=== PATIENT | male | born 1950 | race Caucasian/White ===

== ENCOUNTER → 2016-06-03 | Outpatient (CLI) | payer OTHER ==
[~2016-06-03] MED LIST: ALL180 PO; ALL300 PO; ALLO300T2 PO; AMT100 PO; AMT50 PO; CHOL100010 PEG; CHOL100010 PO; COMPOUNDING CREAM TOP; CYAN3INJ; CYNI1000 INJ; FLNCV PO; GABA-113 PO; HYDR2TAB48 PO; LISI-461 PO; LOSA50TA6 PO; MELO15TA4 PO; MELO7.5T5 PO; MIRT45TA PO; OMEP40CA41 PO; PEDICHW44 PO; PRLSR20 PO; RMR15 PO; TAMS0.4C38 PO; TRAM-10 PO
== END | disposition home or self-care (01) ==
LOC: C.PATHSPEC 17:36
PROVIDERS: ATTEND Orthopaedic Surgery
DX: M67.442 Ganglion, left hand (principal)

== ENCOUNTER 2016-09-21 12:33 | Emergency (ER) | payer OTHER ==
[~2016-09-21] VITALS: Ht 180.3 cm; Wt 122.6 kg
[~2016-09-21 12:33] MED LIST changes: -ALLO300T2 PO; -AMT100 PO; -CHOL100010 PEG; -CYNI1000 INJ; -GABA-113 PO; -HYDR2TAB48 PO; -LOSA50TA6 PO; -MELO15TA4 PO; -MIRT45TA PO; -OMEP40CA41 PO; -PEDICHW44 PO; -TAMS0.4C38 PO
[2016-09-21 12:35] VITALS: TEMP 36.5; Ht 180.3 cm; Wt 122.6 kg
[2016-09-21] MEDS ORDERED: HYDROmorphone INJ 1 MG/ML SYR IM STA (13:34)
[2016-09-21] MEDS ORDERED: PEDICHW44 PO (14:21)
[2016-09-21] MEDS ORDERED: ALLO300T2 PO (14:21)
[2016-09-21] MEDS ORDERED: LOSA50TA6 PO (14:21)
[2016-09-21] MEDS ORDERED: CYNI1000 INJ (14:21)
[2016-09-21] MEDS ORDERED: MELO15TA4 PO (14:21)
[2016-09-21] MEDS ORDERED: AMT100 PO (14:21)
[2016-09-21] MEDS ORDERED: TAMS0.4C38 PO (14:21)
[2016-09-21] MEDS ORDERED: OMEP40CA41 PO (14:21)
[2016-09-21] MEDS ORDERED: MIRT45TA PO (14:21)
[2016-09-21] MEDS ORDERED: CHOL100010 PEG (14:21)
[2016-09-21] MEDS ORDERED: GABA-113 PO (14:21)
[2016-09-21] MEDS ORDERED: HYDROmorphone INJ 1 MG/ML SYR IV STA (14:59)
[2016-09-21] MEDS ORDERED: HYDROmorphone INJ 0.5 MG/0.5 ML SYR IV STA (16:54)
[2016-09-21] MEDS ORDERED: HYDR2TAB48 PO (17:52)
[2016-09-21 18:09] VITALS: BP 158/87; PULSE 95; O2SAT 91
--- NOTE | 2016-09-21 19:28 | EMERGENCY ROOM VISIT NOTE ---
History First contact with patient: 13:09 Chief Complaint: SHOULDER PAIN Stated Complaint: ACUTE PAIN FROM SHOULDER SURGERY History of Present Illness The patient is a 66 year old male who presents to the Emergency Room with complaints of postoperative right shoulder pain. The patient underwent a right rotator cuff repair [address] Dias at [facility]. Because of a prior history of her response to narcotic analgesics, the patient was discharged with a pain pump and OxyIR 5 mg tablets. The patient reports that when he got home, they noticed that the pain pump was leaking. They called the orthopedic on-call service who suggested that he pull the pain pump catheter, continue with the OxyIR 5 mg up to 15 mg every 4-6 hours. The patient reports that he has continued to do so without any relief of the pain. When he tried to call the office this morning, they reported that they could not phone in a prescription for a narcotic, a suggested that he either go to his family doctor or come to the emergency department for further reevaluation. The patient called his family doctor but they could not get him in today, therefore he presents for further pain management. As indicated previously, the patient reports that he does not get good pain relief with narcotic analgesics. He cannot tolerate OxyContin. He believes that he did have oral Dilaudid after undergoing a knee replacement with [facility] in 2009. He reports that Darvocet provides excellent pain relief, but that is no longer available. Regarding the patient's shoulder, he denies any drainage from the surgical ports , and has not noticed any increasing redness, swelling or warmth to palpation. He denies any fevers or chills, chest pain or shortness of breath. He currently rates his discomfort a 7 out of 10. Review of Systems 10 system review was performed and was negative except for pertinent positives and negatives as indicated in history of present illness Past Medical/Surgical History Medical Problems: (1) Allergic Rhinitis Nos (2) Calculus Of Kidney (3) Carpal Tunnel Syndrome (4) Depressive Disorder Nec (5) Diverticulitis Colon (W/O Ment Of Hemorrhage) (6) Gouty Arthropathy, Unspecified (7) Hyperlipidemia Nec/Nos (8) Hypertension Nos (9) Hypertrophy (Benign) Of Prostate W/O Urinary Obst & Oth Luts (10) Obesity, Nos (11) Osteoarthrosis-Mult Site (12) Vitamin D Deficiency, Unspecified Surgical Problems: (1) History of arthroscopic knee surgery (2) History of carpal tunnel surgery (3) History of knee replacement procedure of left knee (4) History of neck surgery Family History Unremarkable Social History Smoking Status: Former Smoker Alcohol Use: none Marital Status: Occupation Status: employed Current/Historical Medications Scheduled Allopurinol (Zyloprim), 300 MG PO DAILY Amitriptyline HCl (Amitriptyline HCl), 100 MG PO DAILY Cholecalciferol (Vitamin D), 4,000 UNITS PEG DAILY Cyanocobalamin (Cyanocobalamin), 1 DOSE INJ MONTHLY Gabapentin (Neurontin), 300 MG PO DAILY Losartan Potassium (Cozaar), 50 MG PO DAILY Meloxicam (Mobic), 15 MG PO DAILY Mirtazapine (Remeron), 22.5 MG PO HS Omeprazole (Prilosec), 40 MG PO DAILY Pediatric Multiple Vitamins W/ (Flintstones Plus Iron), 2 TABS PO DAILY Tamsulosin Hcl (Flomax), 0.4 MG PO DAILY Scheduled PRN Hydromorphone Hcl (Dilaudid), 1-2 TAB PO q4-6h PRN for Pain Allergies Coded Allergies: Imipenem (Verified Allergy, Severe, HIVES, CANT BREATHE (TOLERATES CEFAZOLIN), 12/17/11) Latex (Verified Allergy, Severe, TROUBLE BREATHING, 12/17/11) Sulfa Drugs (Verified Allergy, Severe, CAN'T BREATHE, 12/17/11) CAN'T BREATHE Iodine (Verified Allergy, Unknown, 12/17/11) Moxifloxacin (Unverified Allergy, Unknown, resp distress, hives, 12/17/11) Shrimp (Verified Allergy, Unknown, CAN'T BREATHE, 12/17/11) Physical Exam Vital Signs Date Time Temp Pulse Resp B/P (MAP) Pulse Ox O2 Delivery O2 Flow Rate FiO2 09/21/16 18:09 95 158/87 91 09/21/16 18:08 20 93 09/21/16 18:03 166/116 09/21/16 17:53 91 91 09/21/16 17:38 90 94 09/21/16 17:36 90 Room Air 09/21/16 17:23 88 23 96 09/21/16 17:13 143/114 09/21/16 17:08 96 12 09/21/16 16:53 94 18 09/21/16 16:38 69 17 85 09/21/16 16:23 90 24 09/21/16 16:08 95 28 93 09/21/16 15:53 88 17 09/21/16 15:39 88 93 09/21/16 15:38 93 17 91 09/21/16 15:33 90 09/21/16 15:20 90 09/21/16 14:00 156/84 09/21/16 14:00 87 16 156/84 97 Room Air 09/21/16 12:35 36.5 95 18 147/82 97 Room Air Physical Exam CONSTITUTIONAL: Healthy and well nourished. Alert and oriented X 3 with positive affect. She appears in mild to moderate discomfort. HEENT: Normocephalic, atraumatic. Pupils equal, round and reactive. NECK: Full active range of motion without discomfort. RESPIRATORY: Clear to auscultation bilaterally with no wheezing, crackles, rhonchi or stridor. CARDIOVASCULAR: Regular rate and rhythm with no murmurs, rubs or gallops. MUSCULOSKELETAL: Examination of the right shoulder shows surgical ports without any erythema, edema, induration or purulent drainage. There is no significant increase in warmth to palpation of the shoulder. Range of motion was deferred. Distal pulses are intact. INTEGUMENTARY: No rash or other significant dermatologic conditions noted. NEUROLOGIC: No focal neurologic deficits noted. Right deltoid sensation is intact. Right hand and fingers are also sensory intact. Median, radial and ulnar motor and sensory are intact. Medical Decision & Procedures Medications Administered Medications (Trade) Dose Ordered Sig/Sandra Route Start Time Stop Time Status Last Admin Dose Admin Hydromorphone HCl (Dilaudid Inj) 1 mg ONE STAT IM 09/21/16 13:34 09/21/16 13:39 DC 09/21/16 13:56 1 MG Hydromorphone HCl (Dilaudid Inj) 1 mg NOW STAT IV 09/21/16 14:59 09/21/16 15:08 DC 09/21/16 15:23 1 MG Hydromorphone HCl (Dilaudid Inj) 0.5 mg NOW STAT IV 09/21/16 16:54 09/21/16 16:55 DC 09/21/16 16:54 0.5 MG ED Course Patient history and physical exam were performed. Nurse's notes were reviewed. Vital signs were reviewed, showing a blood pressure of 147/82. The patient is afebrile. The patient was administered Dilaudid 1 mg IM. The presented the bottle of OxyIR 5 mg, dispensed #80 that was prescribed for his surgery. The patient reports that he has been taking 15 mg every 4 hours without any significant relief of his pain. As indicated in history of present illness, the called the orthopedic surgeon's office and was instructed to come here as they could not call in a prescription for other narcotic analgesics. The patient indicates that he has tolerated Dilaudid before in the past after his knee replacement in 2009. I did review hospital records but was unable to confirm the actual dosing of the Dilaudid. At this point, I tried to call the [facility] pharmacy in [place] where he got the prescription filled. They reported that they only have records for 2 years, but gave me the number for the corporate office ( ). This office stated that they could pull his medication history, however the request would need to be a written quest on company letterhead with a fax number, and that this information would have to be collected by the pharmacist and faxed to our location. She reports that this would take several hours to do. I had thought about calling [facility], but suspect that this would also be a long drawn out process as well. At this point, I then contacted the [facility], speaking with Paola ([phone], extension [phone]) who spent approximate 10 minutes on the phone with me well looking through the patient's records. She was unable to find any history of prior Dilaudid prescriptions from surgeries within the [facility] system. At this point, I then spoke with CRISS Avina who is Dr. Dias's TURNER OFF. She suggested prescribing OxyContin, however I explained that the patient has an adverse reaction to OxyContin. At this point, she offered to have the patient drive to their office tomorrow for further pain management. She also stated that if I felt comfortable prescribing Dilaudid to the patient, I could do that as well until the patient can return to their facility for further evaluation. She reports that Dr. Dias has office hours on , which is 3 days from now. Otherwise they do not have any other options at this time for the patient. All of this information was discussed with the patient and . The patient reported that the IM Dilaudid did not provide any relief of his pain. At this point, I suggested intravenous access for further medication titration. IV access was established. The patient was then administered an additional Dilaudid 1 mg IVP, which helped reduced his pain to a 4 out of 10, however this was only a brief respite before the pain re-escalated to a 9 out of 10. He was provided a third dose of IV Dilaudid 0.5 mg which did reduced his pain to a 5 out of 10. The patient reported that he did feel comfortable enough to try to go home. The patient was trial ambulated without any dizziness, nausea or other concerning symptoms. The patient will be provided a prescription for Dilaudid 2 mg, one to 2 every 4- 6 hours for his basic pain relief. He was dispensed 36 tablets with no refills. He may then use his OxyIR 5 mg as needed for additional breakthrough pain. If this does not control the patient's pain, it was suggested that he call the orthopedic service at [facility] who will likely ask him to return to their emergency department for further evaluation. Both the patient and voiced understanding of all discharge instructions, and was happy with plan of care. I did receive a phone call from the patient's pharmacy, reporting that his insurance would only allow dispensing a total of #27 Dilaudid 2 mg tablets in a 72 hour period of time. They were instructed to dispense #27 tablets, and instructed patient to use the OxyIR 5 mg more frequently as needed for pain relief. It is noted that I spent total of 63 minutes in conversation with the patient and [facility] via telephone conversation. Medical Decision I suspect that this is true postoperative joint pain. His clinical exam is not suggestive of infection. He is neurologically intact. I also do not suspect the pain thrombosis given the severity of his symptoms. Impression Primary Impression: Acute postoperative pain of right shoulder Departure Information Dispostion Home / Self-Care Prescriptions Hydromorphone Hcl (DILAUDID) 2 Mg Tab 1-2 TAB PO q4-6h Y for Pain, #36 TAB INITIAL TREATMENT Prov: Broderick Yun PA 09/21/16 Forms HOME CARE DOCUMENTATION FORM, IMPORTANT VISIT INFORMATION Patient Instructions [facility] Additional Instructions Intermittently apply ice to shoulder. Continue with all instructions per your orthopedic surgeon. Continue with Tylenol 1000 mg every 6-8 hours. Take Dilaudid as prescribed for your main pain relief. Continue with OxyIR 5-10 mg every 4 hours if needed for additional pain relief. Call Dr. Dias's office for a follow-up appointment on . If pain is still uncontrollable, suggest going to the [facility] emergency department for further management by the orthopedic service.
== END 2016-09-21 18:11 | disposition home or self-care (01) ==
LOC: C.EDB 12:35
DX: G89.18 Other acute postprocedural pain (principal); M25.511 Pain in right shoulder; Z87.442 Personal history of urinary calculi; F32.9 Major depressive disorder, single episode, unspecified; E78.5 Hyperlipidemia, unspecified; I10 Essential (primary) hypertension; E66.9 Obesity, unspecified; M19.90 Unspecified osteoarthritis, unspecified site; E55.9 Vitamin D deficiency, unspecified; Z87.891 Personal history of nicotine dependence; Z79.899 Other long term (current) drug therapy

== ENCOUNTER → 2016-12-02 | Outpatient (CLI) | payer OTHER ==
[~2016-12-02] MED LIST changes: -ALL180 PO; -ALL300 PO; +ALLO300T2 PO; +AMT100 PO; -AMT50 PO; +CHOL100010 PEG; -CHOL100010 PO; -COMPOUNDING CREAM TOP; -CYAN3INJ; +CYNI1000 INJ; -FLNCV PO; +GABA-113 PO; -LISI-461 PO; +LOSA50TA6 PO; +MELO15TA4 PO; -MELO7.5T5 PO; +MIRT45TA PO; +OMEP40CA41 PO; +PEDICHW44 PO; -PRLSR20 PO; -RMR15 PO; +TAMS0.4C38 PO; -TRAM-10 PO
[2016-12-02 14:42] LABS: BASO % 0.3 %; BASO ABS # 0.02 K/uL (0-0.2); COMPLETE YES; EOS % 2.7 %; HEMATOCRIT 39.5 % (42-52); IG% 0.6 %; LYMPH % 32.6 %; LYMPH ABS # 2.14 K/uL (1.2-3.4); MEAN CELL VOLUME 90.8 fL (80-100); MEAN CORPUSCULAR HEMOGLOBIN 31.5 pg (25-34); MEAN CORPUSCULAR HGB CONC 34.7 g/dl (32-36); MEAN PLATELET VOLUME 9.6 fL (7.4-10.4); MONO % 7.9 %; NEUT % 55.9 %; PLATELET COUNT 246 K/uL (130-400); RED BLOOD COUNT 4.35 M/uL (4.7-6.1); WHITE BLOOD COUNT 6.56 K/uL (4.8-10.8)
[2016-12-02 15:30] LABS: AST/SGOT 20 U/L (15-37); CREATININE 0.92 mg/dl (0.60-1.40)
[2016-12-02 15:33] LABS: ALKALINE PHOSPHATASE 83 U/L (45-117); ALT/SGPT 36 U/L (12-78)
[2016-12-03 07:18] LABS: ESTIMATED AVERAGE GLUCOSE 134 mg/dl; HA1C FLAG Normal (Normal)
== END | disposition home or self-care (01) ==
LOC: C.LAB1850 13:27
PROVIDERS: ATTEND Internal Medicine Rheumatology
DX: M25.549 Pain in joints of unspecified hand (principal); M1A.9XX0 Chronic gout, unspecified, without tophus (tophi); Z79.899 Other long term (current) drug therapy; R73.9 Hyperglycemia, unspecified

== ENCOUNTER → 2017-03-02 | Outpatient (CLI) | payer OTHER ==
--- NOTE | 2017-03-08 10:41 | CODING QUERY MEDICAL NECESSITY ---
SUPPORTING DIAGNOSIS NEEDED Dr. Blas, A supporting diagnosis is required for the test/procedure performed on this patient in order for us to be reimbursed by the patient's insurance. Please provide a supporting diagnosis for the following test/procedure listed below next to the test name along with your signature. *If there is no additional diagnosis for this patient that would support the following test/procedure please document that below next to the test/procedure. Test(s)/Procedure(s) that require a supporting diagnosis: * [id number] PSA DIAGNOSIS: DATE OF SERVICE: 03/02/17 Provider Signature: Date: Thank you Rufino Velasco [facility] Information Management Once completed, please kindly fax back to [phone] For questions please call [phone]
== END | disposition home or self-care (01) ==
LOC: C.LAB 16:18
PROVIDERS: ATTEND Urology
DX: N20.0 Calculus of kidney (principal)

== ENCOUNTER → 2017-03-09 | Outpatient (CLI) | payer OTHER ==
[2017-03-09 13:45] LABS: ALT/SGPT 37 U/L (12-78); AST/SGOT 18 U/L (15-37); BLOOD UREA NITROGEN 32 mg/dl (7-18); BUN/CREATININE RATIO 29.8 (10-20); CALCIUM 8.9 mg/dl (8.5-10.1); CARBON DIOXIDE 25 mmol/L (21-32); CHLORIDE 104 mmol/L (98-107); CREATININE 1.07 mg/dl (0.60-1.40); ESTIMATED AVERAGE GLUCOSE 128 mg/dl; GLUCOSE 109 mg/dl (70-99); HA1C FLAG Normal (Normal); POTASSIUM 4.1 mmol/L (3.5-5.1); SODIUM 135 mmol/L (136-145)
[2017-03-09 13:47] LABS: ALB/GLOB RATIO 1.2 (0.9-2); ALKALINE PHOSPHATASE 75 U/L (45-117); CHOLESTEROL 151 mg/dl (0-200); CHOLESTEROL/HDL RATIO 2.4; HDL CHOLESTEROL 63 mg/dl; LDL CHOLESTEROL CALCULATED 74 mg/dl; TRIGLYCERIDES 70 mg/dl (0-150); VERY LOW DENSITY LIPOPROT CALC 14 mg/dl
== END | disposition home or self-care (01) ==
LOC: C.LAB1850 11:59
PROVIDERS: ATTEND Family Medicine
DX: I10 Essential (primary) hypertension (principal); R73.9 Hyperglycemia, unspecified; K90.9 Intestinal malabsorption, unspecified; E55.9 Vitamin D deficiency, unspecified

== ENCOUNTER → 2017-06-29 | Outpatient (CLI) | payer OTHER ==
[~2017-06-29] MED LIST changes: +MELO-84 PO; -MELO15TA4 PO
== END | disposition home or self-care (01) ==
LOC: C.LABBC 09:18
PROVIDERS: ATTEND Family Medicine
DX: R73.03 Prediabetes (principal); R73.9 Hyperglycemia, unspecified

== ENCOUNTER → 2017-08-15 | Outpatient (CLI) | payer OTHER | END | disposition home or self-care (01) | LOC: C.CPL 08:30 | PROVIDERS: ATTEND Orthopaedic Surgery Sports Medicine | DX: M79.641 Pain in right hand (principal) ==

== ENCOUNTER → 2017-08-18 | Outpatient (CLI) | payer OTHER ==
--- NOTE | 2017-08-18 12:36 | DIAGNOSTIC IMAGING REPORT ---
MRI LUMBAR SPINE W/O CONTRAST CLINICAL HISTORY: M54.16 low back pain with lumbar radiculopathy. TECHNIQUE: Sagittal and axial T1, T2 and STIR images were obtained. COMPARISON STUDY: No previous studies for comparison. OBSERVATIONS: There are no areas of marrow replacement suspicious for neoplasm. Degenerative endplate signal changes are present the L3-4 level. L1-2: There is a minimal circumferential disc bulge. There is no significant spinal or foraminal stenosis L2-3: There is a minimal circumferential disc bulge. There is no significant spinal or foraminal stenosis L3-4: There is a mild circumferential disc bulge. There is mild triangular spinal canal narrowing. There is no significant foraminal stenosis. L4-5: There is a broad-based central disc protrusion with moderate spinal stenosis. There is facet joint arthropathy. There is mild bilateral foraminal narrowing. L5-S1: There is a small broad-based disc protrusion. There is mild spinal stenosis. There is mild bilateral foraminal narrowing. The conus medullaris and cauda equina appear normal. IMPRESSION: Multilevel spondylitic changes. Mild spinal stenosis at the L3-4, and L5-S1 levels. Moderate spinal stenosis at the L4-5 level.. Electronically signed by: Thuan Casas M.D. 08/18/2017 12:35 PM Dictated Date/Time: 08/18/2017 12:29 PM
== END | disposition home or self-care (01) ==
LOC: C.MRI 11:16
PROVIDERS: ATTEND Internal Medicine Geriatric Medicine
DX: M48.07 Spinal stenosis, lumbosacral region (principal); M54.16 Radiculopathy, lumbar region

== ENCOUNTER 2019-03-17 07:33 | Inpatient (IN) ==
--- NOTE | 2019-03-01 10:20 | PAT Medication Instructions ---
Medication Instructions Date of Service March 01, 2019 Home Medications Medication Instructions Recorded epinephrine 0.3 mg/0.3 mL 0.3 mg IM .COMPLEX PRN #2 ea 11/11/18 injection, auto-injector gabapentin 300 mg capsule 300 mg PO HS #90 cap 11/11/18 cyanocobalamin (vitamin B-12) 1,000 mcg IM MONTHLY #10 ml 11/17/18 1,000 mcg/mL injection solution cholecalciferol (vitamin D3) 50 mcg (2,000 unit) capsule 2,000 units PO HS epinephrine 0.3 mg/0.3 mL injection, auto-injector 0.3 mg IM .COMPLEX PRN gabapentin 300 mg capsule 300 mg PO HS cyanocobalamin (vitamin B-12) 1,000 mcg/mL injection solution 1,000 mcg IM MONTHLY allopurinol 300 mg PO HS amitriptyline 150 mg PO HS atorvastatin 10 mg PO HS bupropion HCl [Wellbutrin SR] 100 mg PO BID cyclobenzaprine 5 mg PO UD fluticasone propionate [Flonase Allergy Relief] 1 - 2 spray INTRANASAL DAILY PRN ibuprofen 400 mg PO Q6H PRN meloxicam 15 mg PO HS metformin 1,000 mg PO QAM multivitamin 2 tab PO BID omeprazole 40 mg PO HS tamsulosin 0.4 mg PO HS Continue as directed epinephrine 0.3 mg/0.3 mL injection, auto-injector 0.3 mg IM .COMPLEX PRN (if needed) ASK your surgeon for instructions ibuprofen 400 mg PO Q6H PRN meloxicam 15 mg PO HS DO NOT take the morning of surgery cyanocobalamin (vitamin B-12) 1,000 mcg/mL injection solution 1,000 mcg IM MONTHLY cyclobenzaprine 5 mg PO UD metformin 1,000 mg PO QAM multivitamin 2 tab PO BID Take morning of surgery With a small sip of water, OTHERWISE NOTHING TO EAT OR DRINK AFTER MIDNIGHT: bupropion HCl [Wellbutrin SR] 100 mg PO BID fluticasone propionate [Flonase Allergy Relief] 1 - 2 spray INTRANASAL DAILY PRN (if needed) Take evening before surgery cholecalciferol (vitamin D3) 50 mcg (2,000 unit) capsule 2,000 units PO HS gabapentin 300 mg capsule 300 mg PO HS allopurinol 300 mg PO HS amitriptyline 150 mg PO HS atorvastatin 10 mg PO HS bupropion HCl [Wellbutrin SR] 100 mg PO BID cyclobenzaprine 5 mg PO UD (if needed) fluticasone propionate [Flonase Allergy Relief] 1 - 2 spray INTRANASAL DAILY PRN (if needed) multivitamin 2 tab PO BID omeprazole 40 mg PO HS tamsulosin 0.4 mg PO HS Other Notes If you have any questions please call us at [phone] or [phone] or [phone] or [phone]
--- NOTE | 2019-03-01 13:33 | Anesthesiology Consultation ---
Date of Service March 01, 2019 Assessment & Plan (1) Encounter for pre-operative examination: Elevated coags noted on pre op testing. Note sent to PCP. PCP Clearance 03/09/19 = "After careful review of his past medical records, stability of his medical conditions, and careful review of risks and benefits with patient following surgical intervention, patient is at acceptable risk and cleared for surgical intervention pending CBC, INR, liver enzymes on 03/13/2019." Repeat coags, CBC, and LFTs all WNL. Chart Review Chart Review: Acceptable Risk for Surgery and Patient seen in Pre Admission Testing Teaching & Discussion Instructed NPO after midnight before surgery, except medications with 15 cc of water. Medication instructions provided according to the PAT guidelines. History Surgery Operation Date: 03/17/19 09:55 Proposed Procedures p L4-S1 Decompression and Fusion with Spinal Cord Monitoring - Farooq Burgos, DO Height/Weight Height: 5 ft 11.5 in Weight: 119.7 kg Allergies Allergy/AdvReac Type Severity Reaction Status Date / Time imipenem Allergy Severe HIVES, Verified 03/16/19 10:31 CANT BREATHE (TOLERATES CEFAZOLIN) latex Allergy Severe TROUBLE Verified 03/16/19 10:31 BREATHING Sulfa (Sulfonamide Allergy Severe CAN'T Verified 03/16/19 10:31 Antibiotics) BREATHE iodine Allergy Unknown SOB WITH Verified 03/16/19 10:31 CONTRASRT DYES--TOPICAL OK moxifloxacin Allergy Unknown resp Verified 03/16/19 10:31 distress, hives shrimp Allergy Unknown CAN'T Verified 03/16/19 10:31 BREATHE Medications Home Medications Medication Instructions Recorded Confirmed Last Taken cholecalciferol (vitamin D3) 50 2,000 units PO HS cap 11/11/18 03/16/19 Unknown mcg (2,000 unit) capsule epinephrine 0.3 mg/0.3 mL 0.3 mg IM .COMPLEX PRN #2 ea 11/11/18 03/16/19 Unknown injection, auto-injector gabapentin 300 mg capsule 300 mg PO HS #90 cap 11/11/18 03/16/19 Unknown needle (disp) 25 gauge 25 gauge x #100 ea 11/11/18 03/16/19 Unknown 5/8" cyanocobalamin (vitamin B-12) 1,000 mcg IM MONTHLY #10 ml 11/17/18 03/16/19 Unknown 1,000 mcg/mL injection solution allopurinol 300 mg PO HS 02/22/19 03/16/19 Unknown amitriptyline 150 mg PO HS 02/22/19 03/16/19 Unknown atorvastatin 10 mg PO HS 02/22/19 03/16/19 Unknown bupropion HCl [Wellbutrin SR] 100 mg PO BID 02/22/19 03/16/19 Unknown fluticasone propionate [Flonase 1 - 2 spray INTRANASAL DAILY PRN 02/22/19 03/16/19 Unknown Allergy Relief] ibuprofen 400 mg PO Q6H PRN 02/22/19 03/16/19 Unknown meloxicam 15 mg PO HS 02/22/19 03/16/19 Unknown metformin 1,000 mg PO QAM 02/22/19 03/16/19 Unknown multivitamin 2 tab PO BID 02/22/19 03/16/19 Unknown omeprazole 40 mg PO HS 02/22/19 03/16/19 Unknown tamsulosin 0.4 mg capsule 0.4 mg PO HS #90 cap 03/08/19 03/16/19 Unknown cyclobenzaprine 5 mg tablet 5 mg PO HS PRN tab 03/16/19 03/16/19 Unknown Past Medical History Medical History Allergic rhinitis, cause unspecified BPH loc w urin obs/LUTS Calculus of kidney (Chronic) Carpal tunnel syndrome (Chronic) Depressive disorder, not elsewhere classified (Chronic) Diverticulitis, colon (Resolved) s/p hemicolectomy 1984 Gout Gouty arthropathy, unspecified (Chronic) Hyperlipidemia (Chronic) Hypertension (Chronic) SITUATIONAL; NO MEDS--PCP has initiated in past but d/c'd due to hypotension. 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 Vitamin D deficiency (Chronic) Exercise / Class Metabolic Activity II 4-5 Yardwork/Stairs/Walk up hill (Denies CP or SOB with 1 FOS) Past Family History Family History Father Family history of diabetes mellitus Past Surgical History Surgical History History of appendectomy History of arthroplasty of left knee History of cataract surgery R/L History of colonoscopy X MULTPLE History of fusion of cervical spine History of gastric bypass 1994 History of partial colectomy History of shoulder surgery R/L History of total right hip arthroplasty Nausea and vomiting after administration of anesthetic agent Past Anesthesia History No Hx of Anesthesia Complications (other than PONV) and No Family Hx of Anesthesia Complications Pt feels like he has had worsening memory issues with every subsequent surgery he has, has felt this decline over the past 10-15 years. History of PONV No Hx of Motion Sickness and History of PONV Social History Smoking Status: Former smoker Do You Dip or Chew Tobacco: No Smoking End Date: QUIT 1984 Hx Alcohol Use: No Hx Substance Use: No Review of Systems Pt denies any recent chest pain, shortness of breath, palpitations, cough, fever or URI. Physical Exam Vital Signs BP: 162/94 (pt states he has white coat syndrome, PCP has initiated antihypertensives in the past but tapered down and eventually stopped med due to hypotension. Pt states usually 120's/70's on home readings) P: 88bpm SPO2: 93% RA T: 98.8 F R: 16 Constitutional + obese ENMT Mouth: + dentures (partial upper, 7 teeth); no chipped teeth and no loose teeth Thyromental Distance: > or= 3.5 Finger Breadths (3.5) Mallampati Class: II Neck normal visual inspection; neck extension not limited Respiratory normal respiratory effort Auscultation: lungs clear to auscultation bilaterally Cardiovascular Rate/Rhythm: regular rate and regular rhythm Heart Sounds: no murmur Vessels: no carotid bruit Extremities: no edema Testing Laboratory Results 03/01/19 13:41 03/01/19 13:41 PT 12.7 Seconds (9.0-12.0) H 03/01/19 13:41 INR 1.3 (0.9-1.1) H 03/01/19 13:41 APTT 30.3 Seconds (21.0-31.0) 03/01/19 13:41 Urine Color Yellow 03/01/19 Unknown Urine Appearance Clear (Clear) 03/01/19 Unknown Urine pH 6.0 (4.5-7.5) 03/01/19 Unknown Ur Specific [place] 1.017 (1.000-1.030) 03/01/19 Unknown Urine Protein 2+ (Negative) H 03/01/19 Unknown Urine Glucose (UA) Negative (Negative) 03/01/19 Unknown Urine Ketones Negative (Negative) 03/01/19 Unknown Urine Nitrite Negative (Negative) 03/01/19 Unknown Ur Leukocyte Esterase Negative (Negative) 03/01/19 Unknown Urine WBC (Auto) 1-5 /hpf (0-5) 03/01/19 Unknown Urine RBC (Auto) 0-4 /hpf (0-4) 03/01/19 Unknown U Hyaline Cast (Auto) 0 /lpf (0-5) 03/01/19 Unknown U Epithel Cells (Auto) 0-5 /lpf (0-5) 03/01/19 Unknown Urine Bacteria (Auto) Negative (Negative) 03/01/19 Unknown Blood Type A Positive 03/01/19 13:41 Antibody Screen NEGATIVE 03/01/19 13:41 Updated Labs 03/15/19 WBC: 6.48 H/H: 14.7/43.9 PLATELETS: 240 PT: 9.6 PTT: 30.3 INR: 0.9 LFTs: all WNL Electrocardiogram Date: 03/01/19 Findings: + NSR @ (88bpm) Chest X-Ray Date: 03/01/19 Findings: + NAD
--- NOTE | 2019-03-01 14:02 | XRay Report ---
TWO VIEW CHEST CLINICAL HISTORY: Preoperative examination. FINDINGS: PA and lateral chest radiographs are compared to study dated 10/30/2010. The cardiomediastin al silhouette is unremarkable. There is mild bibasilar atelectasis. The lungs and pleural spaces are otherwise clear. There is no pneumothorax. The bony thorax appears intact. Degenerative change is not ed in the thoracic spine. IMPRESSION: No active disease in the chest. Electronically signed by: Navi Vazquez M.D. 03/01/2019 2:01 PM
[2019-03-01 14:24] LABS: Basophils # (auto) 0.02 K/uL (0-0.2); Basophils % (auto) 0.3 %; Eosinophils % (auto) 2.7 %; Hematocrit (blood only) 40.1 % (42-52); Hemoglobin 13.5 g/dL (14.0-18.0); Immature Granulocytes # (auto) 0.03 K/uL (0.00-0.02); Immature Granulocytes % (auto) 0.4 %; Lymphocytes # (auto) 1.92 K/uL (1.2-3.4); Lymphocytes % (auto) 26.1 %; Mean Corpuscular Hemoglobin 30.9 pg (25-34); Mean Corpuscular Hgb Conc 33.7 g/dL (32-36); Mean Corpuscular Volume 91.8 fL (80-100); Mean Platelet Volume 9.8 fL (7.4-10.4); Monocytes # (auto) 0.54 K/uL (0.11-0.59); Monocytes % (auto) 7.3 %; Neutrophils # (auto) 4.65 K/uL (1.4-6.5); Neutrophils % (auto) 63.2 %; Platelet Count 240 K/uL (130-400); RDW Coefficient of Variation 13.2 % (11.5-14.5); RDW Standard Deviation 43.9 fL (36.4-46.3); Red Blood Count 4.37 M/uL (4.7-6.1); White Blood Count 7.36 K/uL (4.8-10.8)
[2019-03-01 14:34] LABS: BUN Creatinine Ratio 19.9 (10-20); Calcium 8.7 mg/dl (8.5-10.1); Creatinine Clr Calc Pharmacy 103.6 ml/min; Est GFR (African American) 98.8; Est GFR (Non-African American) 85.2; Potassium 3.8 mmol/L (3.5-5.1)
[2019-03-01 14:40] LABS: Appearance Urine Clear (Clear); Bacteria Urine Automated Negative (Negative); Bilirubin Urine Negative (Negative); Blood Urine Negative (Negative); Cast Urine Automated 0 /lpf (0-5); Color Urine Yellow; Epithelial Cell Urine Auto 0-5 /lpf (0-5); Glucose Urine UA Negative (Negative); Ketones Urine Negative (Negative); Leukocyte Esterase Urine Negative (Negative); Nitrite Urine Negative (Negative); Protein Urine 2+ (Negative); RBC Urine Automated 0-4 /hpf (0-4); Specific Gravity Urine 1.017 (1.000-1.030); Urobilinogen Urine Negative (Negative)
[2019-03-01 14:41] LABS: INR 1.3 (0.9-1.1); Partial Thromboplastin Ratio 1.1; Partial Thromboplastin Time 30.3 Seconds (21.0-31.0); Prothrombin Time 12.7 Seconds (9.0-12.0)
[~2019-03-17 07:33] MED LIST changes: +ACETAMINOPHEN 500 MG TAB PO SCH; -ALLO300T2 PO; -AMT100 PO; +CEFAZOLIN 2000MG 2,000 MG/15 ML SYR IV SCH; -CHOL100010 PEG; -CYNI1000 INJ; +CeleBREX 200 MG CAP PO SCH; -GABA-113 PO; +GABAPENTIN 300 MG CAP PO SCH; +HYDROmorphone INJ 2 MG/ML SYR/VIAL ONE; -LOSA50TA6 PO; +LR 15ML/HR IV SCH; -MELO-84 PO; +MIDAZOLAM HCL 1 MG/ML 2ML VIAL ONE; -MIRT45TA PO; -OMEP40CA41 PO; -PEDICHW44 PO; -TAMS0.4C38 PO; +fentaNYL citrate 100 MCG/2 ML VIAL ONE
[2019-03-17] MEDS ORDERED: fentaNYL citrate 100 MCG/2 ML VIAL ONE ×5 (09:30→12:13)
[2019-03-17] MEDS ORDERED: HYDROmorphone INJ 2 MG/ML SYR/VIAL ONE ×2 (09:30→12:58)
--- NOTE | 2019-03-17 09:38 | History & Physical Bridge Note ---
Date of Service March 17, 2019 History & Physical Bridge Note I have examined the patient, reviewed the History & Physical and in the interval since the performance of the History & Physical I have noted the following changes of clinical significance: no changes noted
--- NOTE | 2019-03-17 09:39 | History & Physical Report ---
Date of Service March 17, 2019 Assessment & Plan (1) Neurogenic claudication due to lumbar spinal stenosis: L4-S1 decompression fusion Present on Admission?: Yes History of Present Illness Chief Complaint: Back and leg pain Primary Care Provider: Bing Ramos DO This is a 69-year-old male who presents with chronic persistent back and leg pain. After failing extensive course of nonoperative care is here for surgical invention. Allergies Allergy/AdvReac Type Severity Reaction Status Date / Time imipenem Allergy Severe HIVES, Verified 03/17/19 08:29 CANT BREATHE (TOLERATES CEFAZOLIN) latex Allergy Severe TROUBLE Verified 03/17/19 08:29 BREATHING Sulfa (Sulfonamide Allergy Severe CAN'T Verified 03/17/19 08:29 Antibiotics) BREATHE adhesive tape Allergy Unknown Unknown Verified 03/17/19 08:44 iodine Allergy Unknown SOB WITH Verified 03/17/19 08:29 CONTRASRT DYES--TOPICAL OK moxifloxacin Allergy Unknown resp Verified 03/17/19 08:29 distress, hives shrimp Allergy Unknown CAN'T Verified 03/17/19 08:29 BREATHE Home Medications Home Medications Medication Instructions Recorded Confirmed Type cholecalciferol (vitamin D3) 50 2,000 units PO HS cap 11/11/18 03/17/19 History mcg (2,000 unit) capsule epinephrine 0.3 mg/0.3 mL 0.3 mg IM .COMPLEX PRN #2 ea 11/11/18 03/17/19 Rx injection, auto-injector gabapentin 300 mg capsule 300 mg PO HS #90 cap 11/11/18 03/17/19 Rx needle (disp) 25 gauge 25 gauge x #100 ea 11/11/18 03/16/19 History 5/8" cyanocobalamin (vitamin B-12) 1,000 mcg IM MONTHLY #10 ml 11/17/18 03/17/19 Rx 1,000 mcg/mL injection solution allopurinol 300 mg PO HS 02/22/19 03/17/19 History amitriptyline 150 mg PO HS 02/22/19 03/17/19 History atorvastatin 10 mg PO HS 02/22/19 03/17/19 History bupropion HCl [Wellbutrin SR] 100 mg PO BID 02/22/19 03/17/19 History fluticasone propionate [Flonase 1 - 2 spray INTRANASAL DAILY PRN 02/22/19 03/17/19 History Allergy Relief] ibuprofen 400 mg PO Q6H PRN 02/22/19 03/17/19 History meloxicam 15 mg PO HS 02/22/19 03/17/19 History metformin 1,000 mg PO QAM 02/22/19 03/17/19 History multivitamin 2 tab PO BID 02/22/19 03/17/19 History omeprazole 40 mg PO HS 02/22/19 03/17/19 History tamsulosin 0.4 mg capsule 0.4 mg PO HS #90 cap 03/08/19 03/17/19 Rx cyclobenzaprine 5 mg tablet 5 mg PO HS PRN tab 03/16/19 03/17/19 History Past Med/Surg History Medical History Allergic rhinitis, cause unspecified BPH loc w urin obs/LUTS Calculus of kidney (Chronic) Carpal tunnel syndrome (Chronic) Depressive disorder, not elsewhere classified (Chronic) Diverticulitis, colon (Resolved) s/p hemicolectomy 1984 Gout Gouty arthropathy, unspecified (Chronic) Hyperlipidemia (Chronic) Hypertension (Chronic) SITUATIONAL; NO MEDS--PCP has initiated in past but d/c'd due to hypotension. 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 Vitamin D deficiency (Chronic) Surgical History History of appendectomy History of arthroplasty of left knee History of cataract surgery R/L History of colonoscopy X MULTPLE History of fusion of cervical spine History of gastric bypass 1994 History of partial colectomy History of shoulder surgery R/L History of total right hip arthroplasty Nausea and vomiting after administration of anesthetic agent Family History Father Family history of diabetes mellitus Social History Preferred Language: Syriac Communication Ability: Effective Visual Impairment: Limited Hearing Ability: Normal Drophammer Operator Required: No Beliefs That Will Affect Care: None marital status: Current Living Situation: Spouse current occupational status: retired current occupation: Retired from [employer]. Other Information That Helps Us Care for You: No Feels Safe at Home: Yes Safety Concerns: Feels Safe At This Time Smoking Status: Former smoker Do You Dip or Chew Tobacco: No ; Smoking End Date: QUIT 1984 ; Second Hand Exposure: Yes (FAMILY SMOKED) ; Hx Alcohol Use: No Hx Substance Use: No Childhood Exposure to Second-Hand Smoke: Yes caffeine: Yes (Coffee x 2 per day. ) during the past year weight has: remained stable Dental Care, Regularly: Yes Physical Activity Frequency: Daily Seatbelt Use: always Sunscreen Use: Yes Physical Exam Physical Exam: Patient is alert and oriented neurologically intact. Results & Data Vital Signs (Past 12 Hours) Vital Signs Temp Pulse Resp BP Pulse Ox 03/17/19 08:32 36.7 C 90 20 121/78 93
[2019-03-17] MEDS ORDERED: DEXAMETHASONE SOD INJ 4 MG/ML VIAL ONE (09:43)
[2019-03-17] MEDS ORDERED: NEOSTIGMINE METHYLSULFATE 1 MG/ML 10ML VIAL ONE (09:43)
[2019-03-17] MEDS ORDERED: GLYCOPYRROLATE 0.2 MG/ML VIAL ONE (09:43)
[2019-03-17] MEDS ORDERED: ROCURONIUM BROMIDE 10 MG/ML 5 ML VIAL ONE (09:43)
[2019-03-17] MEDS ORDERED: ONDANSETRON INJ 2 MG/ML 2 ML VIAL ONE (09:43)
[2019-03-17] MEDS ORDERED: PROPOFOL IV EMULSION 10 MG/ML 20 ML VIAL IV ONE (09:43)
[2019-03-17] MEDS ORDERED: LIDOCAINE HCL 2% 2 ML VIAL/AMP(20MG/ML) INFIL ONE (09:43)
[2019-03-17] MEDS ORDERED: HYDROmorphone INJ 2 MG/ML SYR/VIAL IV PRN (09:58)
[2019-03-17] MEDS ORDERED: ATROPINE SULFATE 0.1 MG/ML 10ML SYR IV PRN (09:58)
[2019-03-17] MEDS ORDERED: METOCLOPRAMIDE HCL INJ 5 MG/ML 2 ML VIAL IV PRN ×2 (09:58→14:33)
[2019-03-17] MEDS ORDERED: fentaNYL citrate 100 MCG/2 ML VIAL IV PRN (09:58)
[2019-03-17] MEDS ORDERED: PROMETHAZINE HCL 12.5 MG in SODIUM CHLORIDE 0.9% 50 ML IV PRN ×2 (09:58→14:33)
[2019-03-17] MEDS ORDERED: ePHEDrine sulfate 50 MG/ML AMP IV PRN (09:58)
[2019-03-17] MEDS ORDERED: ONDANSETRON INJ 2 MG/ML 2 ML VIAL IV PRN ×2 (09:58→14:33)
[2019-03-17] MEDS ORDERED: BUPIVACAINE/EPINEPHRINE 0.5% MPF 1:200,000 10 ML VIAL ONE (10:02)
[2019-03-17] MEDS ORDERED: BACITRACIN INJ 50,000 UNIT VIAL ONE (10:02)
[2019-03-17] MEDS ORDERED: FLOSEAL HEMOSTATIC MATRIX 10ML TOP ONE (11:09)
--- NOTE | 2019-03-17 12:31 | Operative Report ---
Post Operative Report Pre & Post Diagnosis Operation Date: 03/17/19 09:55 Pre-Op Diagnosis: Neurogenic claudication due to lumbar spinal stenosis Post-Op Diagnosis: Neurogenic claudication due to lumbar spinal stenosis I identified the patient and participated in the time-out.: Yes Procedure Operation Date: 03/17/19 09:55 Actual Procedures #1 lumbar decompression with bilateral medial facetectomies and foraminotomies L3-4 L4-5 L5-S1. #2 posterior spinal fusion L4-5 L5-S1. #3 placement posterior instrumentation L4-5 L5-S1. #4 placement of local autograft in the posterior lateral gutters. #5 placement infuse collagen sponge, master graft in the posterior lateral gutters. Surgeon Farooq Burgos, DO Premises Technician Martin Tavera Estimated Blood Loss 175 Findings See Below The patient is 5 foot 11 inches tall weighing over 113 kg with a BMI of 35. The patient's body habitus did add significant technical difficulty throughout the procedure requiring her deepest retractors and longus instruments in order to perform his procedure. This added at least 50% increase in operative time. Specimens None Indications This is a 69-year-old male who presents with above-mentioned diagnosis after failing extensive course of nonoperative care he is here for surgical intervention. Description of Procedure Patient was met with identified informed consent obtained. Patient was then taken to the operative suite underwent intubation placed in a prone position the Sony table on top of the Artem frame. All bony prominences well-padded eyes inspected to ensure no external pressure placed upon up at this point the lumbar spine was prepped and draped in a sterile fashion. Sharp dissection with assistance of Bovie cautery was performed down to and exposing the lamina transverse processes of L4-L5 and the sacral ala bilaterally. From caudal cepha lad fashion complete laminectomy of L5 L4 and partial laminectomy of L3 was performed including bilateral medial facetectomies and foraminotomies addressing severe spinal stenosis. The fact that the severity was extreme particularly on the right exiting L5 nerve root we can I can actually appreciate atrophy of the root. There is evidence of a small pinhole CSF leak most likely consistent with a previous epidural. I did place a small portion of DuraGen and DuraSeal over this pinhole. I then moved proceeded with pedicle screws in L4-L5 and S1 levels bilaterally assistance of fluoroscopy the process kelley locked in position. The transverse processes of L4-L5 and the sacral ala burred to subcortical bleeding bone. Infuse collagen sponge master graft and local autograft was placed in the posterior lateral gutters. 15 round MARIE drain inserted. The incision was then closed with 1 Vicryl in the fascia 2-0 Vicryl subcutaneously and 4 Monocryl for final skin closure. Steri-Strip sterile dressings placed. Patient will continue to PACU in a stable condition. Please note Martin PRESENT at the entire procedure involved the patient positioning complex portions of the surgery and final skin closure. Lastly spinal cord monitoring was utilized that the procedure no changes noted. I attest to the content of the Intraoperative Record and any orders documented therein. Any exceptions are noted below.
[2019-03-17] MEDS ORDERED: PHENYLEPHRINE HCL 10 MG/ML VIAL ONE (12:40)
[2019-03-17] MEDS ORDERED: ESMOLOL HCL INJ 10 MG/ML 10ML VIAL IV ONE (12:40)
[2019-03-17] MEDS ORDERED: KETOROLAC 30 MG/ML VIAL ONE (12:40)
[2019-03-17] MEDS ORDERED: VASOPRESSIN 20 UNIT/ML VIAL ONE (12:40)
--- NOTE | 2019-03-17 13:49 | Fluoroscopy Report ---
LUMBAR SPINE, INTRAOPERATIVE FLUOROSCOPY HISTORY: L4-S1 decompression and fusion. FLUOROSCOPY TIME: 25 seconds. FINDINGS: Intraoperative fluoroscopy was provided for the lumbar spine. 2 fluoroscopic spot images we re obtained. Posterior decompression fusion from L4 through S1 with pedicle screws and rods. The hard jang appears intact. IMPRESSION: Fluoroscopy provided for a L4-S1 posterior decompression and fusion. Electronically signed by: Hesham Resendiz M.D. 03/17/2019 1:47 PM
--- NOTE | 2019-03-17 14:30 | Anesthesiology Progress Note ---
Date of Service March 17, 2019 Anesthesia Post Procedure Vital Signs Vital Signs: Temp Pulse Pulse Resp BP Pulse Ox 03/17/19 13:45 36.2 C L 91 H 15 132/83 98 03/17/19 13:30 94 H 16 128/74 98 03/17/19 13:20 96 H 17 161/83 H 96 03/17/19 13:10 96 H 26 H 162/88 H 99 03/17/19 13:00 91 H 18 158/81 H 99 03/17/19 12:54 36.5 C 85 14 164/82 H 100 03/17/19 08:32 36.7 C 90 20 121/78 93 Pain Intensity Back: Pain Intensity: 0 Transfer of Care Handoff Completed per policy Notes Mental Status: alert / awake / arousable and participated in evaluation Patient Amnestic to Procedure: Yes Nausea / Vomiting: adequately controlled Pain: adequately controlled Airway Patency, RR, SpO2: stable & adequate BP & HR: stable & adequate Hydration State: stable & adequate Anesthetic Complications: no major complications apparent
[2019-03-17] MEDS ORDERED: SOD PHOSPHATE/SOD BIPHOSPHATE ENEMA 132 ML BTL PR PRN (14:33)
[2019-03-17] MEDS ORDERED: HYDROmorphone INJ 0.5 MG/0.5 ML SYR IV PRN (14:33)
[2019-03-17] MEDS ORDERED: DO NOT ADMINISTER FLU VACCINE PRN (14:33)
[2019-03-17] MEDS ORDERED: NALOXONE HCL 0.4 MG/1 ML VIAL/CARP IV PRN (14:33)
[2019-03-17] MEDS ORDERED: bisacodyL 10 MG SUPP PR PRN (14:33)
[2019-03-17] MEDS ORDERED: FAMOTIDINE 20 MG TAB PO PRN (14:33)
[2019-03-17] MEDS ORDERED: ONDANSETRON 4 MG OD TAB PO PRN (14:33)
[2019-03-17] MEDS ORDERED: ACETAMINOPHEN 1,000 MG/100 ML VIAL IV PRN (14:33)
[2019-03-17] MEDS ORDERED: MAGNESIUM HYDROXIDE SUSP 30 ML UDC PO PRN (14:33)
[2019-03-17] MEDS ORDERED: DO NOT ADMINISTER PNEUMOCOCCAL VACCINE PRN (14:33)
[2019-03-17] MEDS ORDERED: ALUMINUM/MAGNESIUM SUSP 30 ML UDC PO PRN (14:33)
[2019-03-17] MEDS ORDERED: OXYCODONE HCL IR 5 MG TAB (IMMEDIATE RELEASE) PO PRN (14:33)
[2019-03-17] MEDS ORDERED: LORazepam 0.5 MG/1 ML VIAL IV PRN (14:33)
[2019-03-17] MEDS: SODIUM CHLORIDE 0.9% 1000ML 1,000 ML IV SCH ×2 (15:27→21:48)
[2019-03-17] MEDS: KETOROLAC TROMETHAMINE 15 MG/ML VIAL IV SCH ×2 (15:37→21:44)
--- NOTE | 2019-03-17 17:13 | Consultation ---
Date of Consultation March 17, 2019 Assessment & Plan (1) Neurogenic claudication due to lumbar spinal stenosis: s/p L4 - S1 decompression fusion pain control, dvt proph per primary monitor for acute blood loss (2) Impaired fasting glucose: Prediabetic - A1c 6.1 hold metformin, ss, glycemic consult (3) Depressive disorder, not elsewhere classified: cotninue bupropion and amitriptyline (4) Gouty arthropathy, unspecified: Continue allopurinol (5) Hyperlipidemia: Continue atorvastatin (6) Hypertension: No home meds, monitor History of Present Illness Attending Physician: Farooq Burgos, DO History of Present Illness Mr. Smith is an L4-S1 decompression fusion with Dr. Burgos today. He is having some pain but otherwise does not have complaints. He denies sob, cough, chest pain, nausea or vomiting. Pmhx: htn, prediabetes, anxiety, depression, gastric bypass, hld, gout, gastric bypass Social: , retired, smoked a few cigarettes a day while in college many years ago, no alcohol Family: mother at 84, father had DMII Allergies Allergy/AdvReac Type Severity Reaction Status Date / Time imipenem Allergy Severe HIVES, Verified 03/17/19 08:29 CANT BREATHE (TOLERATES CEFAZOLIN) latex Allergy Severe TROUBLE Verified 03/17/19 08:29 BREATHING Sulfa (Sulfonamide Allergy Severe CAN'T Verified 03/17/19 08:29 Antibiotics) BREATHE adhesive tape Allergy Unknown Unknown Verified 03/17/19 08:44 iodine Allergy Unknown SOB WITH Verified 03/17/19 08:29 CONTRASRT DYES--TOPICAL OK moxifloxacin Allergy Unknown resp Verified 03/17/19 08:29 distress, hives shrimp Allergy Unknown CAN'T Verified 03/17/19 08:29 BREATHE Home Medications Home Medications Medication Instructions Recorded Confirmed Type cholecalciferol (vitamin D3) 50 2,000 units PO HS cap 11/11/18 03/17/19 History mcg (2,000 unit) capsule epinephrine 0.3 mg/0.3 mL 0.3 mg IM .COMPLEX PRN #2 ea 11/11/18 03/17/19 Rx injection, auto-injector gabapentin 300 mg capsule 300 mg PO HS #90 cap 11/11/18 03/17/19 Rx needle (disp) 25 gauge 25 gauge x #100 ea 11/11/18 03/16/19 History 5/8" cyanocobalamin (vitamin B-12) 1,000 mcg IM MONTHLY #10 ml 11/17/18 03/17/19 Rx 1,000 mcg/mL injection solution allopurinol 300 mg PO HS 02/22/19 03/17/19 History amitriptyline 150 mg PO HS 02/22/19 03/17/19 History atorvastatin 10 mg PO HS 02/22/19 03/17/19 History bupropion HCl [Wellbutrin SR] 100 mg PO BID 02/22/19 03/17/19 History fluticasone propionate [Flonase 1 - 2 spray INTRANASAL DAILY PRN 02/22/19 03/17/19 History Allergy Relief] ibuprofen 400 mg PO Q6H PRN 02/22/19 03/17/19 History meloxicam 15 mg PO HS 02/22/19 03/17/19 History metformin 1,000 mg PO QAM 02/22/19 03/17/19 History multivitamin 2 tab PO BID 02/22/19 03/17/19 History omeprazole 40 mg PO HS 02/22/19 03/17/19 History tamsulosin 0.4 mg capsule 0.4 mg PO HS #90 cap 03/08/19 03/17/19 Rx cyclobenzaprine 5 mg tablet 5 mg PO HS PRN tab 03/16/19 03/17/19 History Patient History Medical History Allergic rhinitis, cause unspecified BPH loc w urin obs/LUTS Calculus of kidney (Chronic) Carpal tunnel syndrome (Chronic) Depressive disorder, not elsewhere classified (Chronic) Diverticulitis, colon (Resolved) s/p hemicolectomy 1984 Gout Gouty arthropathy, unspecified (Chronic) Hyperlipidemia (Chronic) Hypertension (Chronic) SITUATIONAL; NO MEDS--PCP has initiated in past but d/c'd due to hypotension. 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 Vitamin D deficiency (Chronic) Surgical History History of appendectomy History of arthroplasty of left knee History of cataract surgery R/L History of colonoscopy X MULTPLE History of fusion of cervical spine History of gastric bypass 1994 History of partial colectomy History of shoulder surgery R/L History of total right hip arthroplasty Nausea and vomiting after administration of anesthetic agent Family History Father Family history of diabetes mellitus Social History Preferred Language: Nigerien Communication Ability: Effective Visual Impairment: Limited Hearing Ability: Normal Nutrition Counselor Required: No Beliefs That Will Affect Care: None marital status: Current Living Situation: Spouse current occupational status: retired current occupation: Retired from [employer]. Other Information That Helps Us Care for You: No Feels Safe at Home: Yes Safety Concerns: Feels Safe At This Time Smoking Status: Former smoker Do You Dip or Chew Tobacco: No ; Smoking End Date: QUIT 1984 ; Second Hand Exposure: Yes (FAMILY SMOKED) ; Hx Alcohol Use: No Hx Substance Use: No Childhood Exposure to Second-Hand Smoke: Yes caffeine: Yes (Coffee x 2 per day. ) during the past year weight has: remained stable Dental Care, Regularly: Yes Physical Activity Frequency: Daily Seatbelt Use: always Sunscreen Use: Yes Review of Systems Review of Systems: All systems reviewed & are unremarkable except as noted in HPI & below Physical Exam Physical Exam: General: no distress Eyes: normal inspection, PERLL Respiratory: chest non tender, clear to auscultation, normal breath sounds, no respiratory distress, no accessory muscle use Cardiac: regular rate and rhythm, no rub or gallop, no murmur, no edema, no jvd GI/: active bowel sounds, no abd pain or tenderness, soft, non distended Extremities: normal range of motion, normal strength, non tender Neuro/Psych: alert and oriented x 3, normal mood and affect Skin: normal color, dry Results & Data Vital Signs (Past 12 Hours) Vital Signs Temp Pulse Pulse Pulse Resp BP Pulse Ox 03/17/19 16:17 36.3 C L 93 H 16 143/79 H 92 03/17/19 15:14 36.6 C 91 H 16 135/73 95 03/17/19 14:40 36.5 C 97 H 16 133/74 95 03/17/19 14:10 36.8 C 94 H 16 134/76 97 03/17/19 13:45 36.2 C L 91 H 15 132/83 98 03/17/19 13:30 94 H 16 128/74 98 03/17/19 13:20 96 H 17 161/83 H 96 03/17/19 13:10 96 H 26 H 162/88 H 99 03/17/19 13:00 91 H 18 158/81 H 99 03/17/19 12:54 36.5 C 85 14 164/82 H 100 03/17/19 08:32 36.7 C 90 20 121/78 93 PG Care Time/CCT Total # of Minutes Spent Total Time Spent with Patient: Total time spent is greater than 50% in coordination of care (as documented) at patient's floor/unit and/or counseling patient:
[2019-03-17] MEDS ORDERED: PHARMACY GLYCEMIC MGMT CONSULT PRN (17:50)
[2019-03-17] MEDS ORDERED: GLUCOSE 40% GEL 15 GM TUBE PO PRN (18:00)
[2019-03-17] MEDS ORDERED: GLUCOSE 10 TABS/TUBE PO PRN (18:00)
[2019-03-17] MEDS ORDERED: GLUCAGON FOR INJ 1 MG VIAL IM PRN (18:00)
[2019-03-17] MEDS ORDERED: DEXTROSE 50% 50 ML SYRINGE IV PRN (18:00)
[2019-03-17] MEDS ORDERED: CARBOHYDRATES FOR HYPOGLYCEMIA PO PRN (18:00)
[2019-03-17] MEDS: HYDROmorphone INJ 1 MG/ML SYRINGE IV PRN ×2 (18:32→21:33)
[2019-03-17] MEDS: INSULIN ASPART 100 UNITS/ML 3 ML PEN SC SCH ×2 (18:35→20:42)
[2019-03-17] MEDS: CEFAZOLIN 2000MG 2,000 MG/15 ML SYR IV SCH (18:40)
[2019-03-17] MEDS: DOCUSATE SODIUM/SENNA 50/8.6MG TAB PO SCH (20:36)
[2019-03-17] MEDS: allopurinoL 300 MG TAB PO SCH (20:36)
[2019-03-17] MEDS: TAMSULOSIN HCL 0.4 MG CAP PO SCH (20:37)
[2019-03-17] MEDS: AMITRIPTYLINE HCL 50 MG TAB PO SCH (20:37)
[2019-03-17] MEDS: PANTOprazole 40 MG TAB PO SCH (20:37)
[2019-03-17] MEDS: ATORVASTATIN 10 MG TAB PO SCH (20:37)
[2019-03-17] MEDS: CHOLECALCIFEROL 1,000 UNITS 25 MCG TAB PO SCH (20:37)
[2019-03-17] MEDS: BuPROPion SR 100 MG TABCR PO SCH (20:37)
[2019-03-17] MEDS: GABAPENTIN 300 MG CAP PO SCH (20:37)
[2019-03-17] MEDS: MULTIVITAMIN TAB PO SCH (20:38)
[2019-03-18] MEDS: TRAMADOL HCL 50 MG TABLET PO PRN ×4 (00:07→17:53)
[2019-03-18] MEDS: CEFAZOLIN 2000MG 2,000 MG/15 ML SYR IV SCH (01:29)
[2019-03-18] MEDS: HYDROmorphone INJ 1 MG/ML SYRINGE IV PRN ×2 (01:31→18:26)
[2019-03-18] MEDS: KETOROLAC TROMETHAMINE 15 MG/ML VIAL IV SCH ×2 (04:10→09:30)
[2019-03-18] MEDS: SODIUM CHLORIDE 0.9% 1000ML 1,000 ML IV SCH (04:50)
[2019-03-18] MEDS: POLYETHYLENE (MIRALAX) 17 GM PACK PO SCH ×3 (05:56→17:53)
[2019-03-18 06:10] LABS: Basophils # (auto) 0.01 K/uL (0-0.2); Basophils % (auto) 0.1 %; Eosinophils # (auto) 0.01 K/uL (0-0.5); Eosinophils % (auto) 0.1 %; Hematocrit (blood only) 35.7 % (42-52); Immature Granulocytes # (auto) 0.03 K/uL (0.00-0.02); Immature Granulocytes % (auto) 0.2 %; Lymphocytes % (auto) 11.5 %; Mean Corpuscular Hemoglobin 31.2 pg (25-34); Mean Corpuscular Hgb Conc 33.6 g/dL (32-36); Mean Corpuscular Volume 92.7 fL (80-100); Mean Platelet Volume 9.8 fL (7.4-10.4); Monocytes % (auto) 8.2 %; Neutrophils % (auto) 79.9 %; Platelet Count 199 K/uL (130-400); RDW Coefficient of Variation 12.8 % (11.5-14.5); RDW Standard Deviation 42.9 fL (36.4-46.3); Red Blood Count 3.85 M/uL (4.7-6.1); White Blood Count 12.15 K/uL (4.8-10.8)
[2019-03-18 06:42] LABS: BUN Creatinine Ratio 24.3 (10-20); Calcium 7.9 mg/dl (8.5-10.1); Creatinine Clr Calc Pharmacy 90.1 ml/min; Est GFR (African American) 87.7; Est GFR (Non-African American) 75.7; Potassium 4.4 mmol/L (3.5-5.1)
[2019-03-18] MEDS: BuPROPion SR 100 MG TABCR PO SCH ×2 (08:33→19:59)
[2019-03-18] MEDS: MULTIVITAMIN TAB PO SCH ×2 (08:33→19:59)
[2019-03-18] MEDS: INSULIN ASPART 100 UNITS/ML 3 ML PEN SC SCH ×5 (08:36→21:25)
--- NOTE | 2019-03-18 10:40 | Orthopedic Progress Note ---
Date of Service March 18, 2019 Assessment & Plan (1) Neurogenic claudication due to lumbar spinal stenosis: At this time we will try to mobilize the patient today. If he struggles with headaches we will have him return to bed keeping supine for the next 24 hours and discontinue his drain. Present on Admission?: Yes Subjective Patient states he has marked improvement of his leg symptoms. Back pain controlled. He did have an episode of a headache this morning. He denied 1 last evening. Physical Exam Physical Exam: On exam is good strength testing. Results & Data Vital Signs (Past 12 Hours) Vital Signs Temp Pulse Pulse Resp BP BP Pulse Ox 03/18/19 07:20 36.3 C L 83 16 129/79 94 03/18/19 04:00 36.4 C L 89 16 117/71 94 03/17/19 23:18 36.4 C L 88 16 117/64 94
--- NOTE | 2019-03-18 12:53 | Hospitalist Progress Note ---
Date of Service March 18, 2019 Assessment & Plan (1) Neurogenic claudication due to lumbar spinal stenosis: s/p L4 - S1 decompression fusion pain control, dvt proph per primary (2) Acute blood loss anemia: Hgb decreased about 2g since surgery Continue to monitor (3) Impaired fasting glucose: Prediabetic - A1c 6.1 hold metformin, give ss, glycemic consult (4) Depressive disorder, not elsewhere classified: continue bupropion and amitriptyline (5) Gouty arthropathy, unspecified: Continue allopurinol (6) Hyperlipidemia: Continue atorvastatin (7) Hypertension: No home meds, BPs stable Thank you for this consult, medicine will sign off. Please call with any questions or concerns. Subjective Mr. Smith is feeling well today. Pain is under control. Denies any complaints. ROS Constitutional: no chills, aches, sweats or fever Respiratory: no sob,cough, sputum, or wheezing Cardiac: no chest pain, palpitations, edema, orthopnea or lightheadedness GI: no abdominal pain, nausea, vomiting, diarrhea or constipation : no dysuria or hesitancy Extremities: no joint pain or weakness Skin: no rash All other systems reviewed and negative Physical Exam Physical Exam: General: no distress Eyes: normal inspection, PERLL Respiratory: chest non tender, clear to auscultation, normal breath sounds, no respiratory distress, no accessory muscle use Cardiac: regular rate and rhythm, no rub or gallop, no murmur, no edema, no jvd GI/: active bowel sounds, no abd pain or tenderness, soft, non distended Extremities: normal range of motion, normal strength, non tender Neuro/Psych: alert and oriented x 3, normal mood and affect Skin: normal color, dry Results & Data Vital Signs (Past 12 Hours) Vital Signs Temp Pulse Resp BP BP Pulse Ox 03/18/19 12:19 36.4 C L 80 16 124/71 95 03/18/19 07:20 36.3 C L 83 16 129/79 94 03/18/19 04:00 36.4 C L 89 16 117/71 94 PG Care Time/CCT Total # of Minutes Spent Total Time Spent with Patient: Total time spent is greater than 50% in coordination of care (as documented) at patient's floor/unit and/or counseling patient:
[2019-03-18] MEDS: ACETAMINOPHEN 500 MG TAB PO PRN (13:33)
--- NOTE | 2019-03-18 14:46 | Pharmacy Report ---
Pharmacy Glycemic Short Note 2 - Date of Service March 18, 2019 - Glycemic Short BSG Results (Last 24 hours): 03/17/19 03/17/19 03/18/19 17:32 20:39 05:50 Glucose 118 H POC Glucose 178 H 172 H 03/18/19 03/18/19 08:28 12:12 Glucose POC Glucose 114 H 110 H OUTPATIENT ANTIDIABETIC REGIMEN: * Metformin ASSESSMENT: * Pt's BSGs have been reasonably controlled over the previous 24hrs. Diet continues. She is POD: 1 for a L4 - S1 decompression fusion. I do not anticipate an acute fluctuation in insulin requirements. Continue standing insulin orders. PLAN FOR INPATIENT GLYCEMIC CONTROL: * Hold outpatient oral diabetes medications * Basal insulin * none indicated * Bolus insulin * NovoLog per scale ACHS or Q6hrs while NPO * Goal Range: Low 110 mg/dL - High 140 mg/dL * Correction Factor: 18 mg/dL/unit * Nutritional / Prandial insulin per carb ratio of 1 unit per 6 grams CHO consumed
[2019-03-18] MEDS: TAMSULOSIN HCL 0.4 MG CAP PO SCH (19:57)
[2019-03-18] MEDS: DOCUSATE SODIUM/SENNA 50/8.6MG TAB PO SCH (19:58)
[2019-03-18] MEDS: ATORVASTATIN 10 MG TAB PO SCH (19:58)
[2019-03-18] MEDS: AMITRIPTYLINE HCL 50 MG TAB PO SCH (19:58)
[2019-03-18] MEDS: allopurinoL 300 MG TAB PO SCH (19:59)
[2019-03-18] MEDS: CHOLECALCIFEROL 1,000 UNITS 25 MCG TAB PO SCH (19:59)
[2019-03-18] MEDS: PANTOprazole 40 MG TAB PO SCH (19:59)
[2019-03-18] MEDS: GABAPENTIN 300 MG CAP PO SCH (20:00)
[2019-03-19] MEDS: POLYETHYLENE (MIRALAX) 17 GM PACK PO SCH ×5 (00:06→23:40)
[2019-03-19] MEDS: TRAMADOL HCL 50 MG TABLET PO PRN ×3 (06:28→23:39)
[2019-03-19] MEDS: ACETAMINOPHEN 500 MG TAB PO PRN (08:21)
[2019-03-19] MEDS: BuPROPion SR 100 MG TABCR PO SCH ×2 (08:21→20:40)
[2019-03-19] MEDS: INSULIN ASPART 100 UNITS/ML 3 ML PEN SC SCH ×4 (08:24→20:44)
--- NOTE | 2019-03-19 08:32 | Orthopedic Progress Note ---
Date of Service March 19, 2019 Assessment & Plan (1) Lumbar stenosis: Patient is doing well postop day #2. I encouraged him to continue to ambulate today. Leg symptoms should come down over time. We will continue GI DVT prophylaxis and like to get him home tomorrow. Subjective Patient was seen postoperative day #2. Physical Exam Physical Exam: On exam patient is alert and oriented. He is lying on his side. His abdomen soft nontender his calves are supple and nontender. Strength and sensation are both intact dressings clean dry intact MARIE drain is in place and holding suction he had 60 cc out last shift and 30 cc out the previous. Results & Data Vital Signs (Past 12 Hours) Vital Signs Temp Pulse Resp BP Pulse Ox 03/19/19 07:09 36.3 C L 87 18 136/79 94 03/18/19 23:30 36.8 C 82 18 133/75 94
[2019-03-19] MEDS: MULTIVITAMIN TAB PO SCH ×2 (08:37→20:38)
[2019-03-19] MEDS: LORazepam 0.5 MG TAB PO PRN ×2 (11:10→23:39)
[2019-03-19] MEDS: HYDROmorphone INJ 1 MG/ML SYRINGE IV PRN ×2 (11:59→18:17)
[2019-03-19] MEDS: CHOLECALCIFEROL 1,000 UNITS 25 MCG TAB PO SCH (20:39)
[2019-03-19] MEDS: TAMSULOSIN HCL 0.4 MG CAP PO SCH (20:39)
[2019-03-19] MEDS: DOCUSATE SODIUM/SENNA 50/8.6MG TAB PO SCH (20:39)
[2019-03-19] MEDS: ATORVASTATIN 10 MG TAB PO SCH (20:39)
[2019-03-19] MEDS: AMITRIPTYLINE HCL 50 MG TAB PO SCH (20:39)
[2019-03-19] MEDS: PANTOprazole 40 MG TAB PO SCH (20:39)
[2019-03-19] MEDS: allopurinoL 300 MG TAB PO SCH (20:40)
[2019-03-19] MEDS: GABAPENTIN 300 MG CAP PO SCH (20:40)
[2019-03-20] MEDS: TRAMADOL HCL 50 MG TABLET PO PRN ×3 (04:38→21:55)
[2019-03-20] MEDS: ACETAMINOPHEN 500 MG TAB PO PRN ×2 (04:38→16:44)
[2019-03-20] MEDS: POLYETHYLENE (MIRALAX) 17 GM PACK PO SCH ×3 (05:14→18:39)
[2019-03-20] MEDS: MULTIVITAMIN TAB PO SCH ×2 (07:51→21:32)
[2019-03-20] MEDS: BuPROPion SR 100 MG TABCR PO SCH ×2 (07:51→21:32)
[2019-03-20] MEDS: INSULIN ASPART 100 UNITS/ML 3 ML PEN SC SCH ×4 (08:06→21:30)
--- NOTE | 2019-03-20 10:06 | Pharmacy Report ---
Pharmacy Glycemic Short Note 2 - Date of Service March 20, 2019 - Glycemic Short BSG Results (Last 24 hours): 03/19/19 03/19/19 03/19/19 12:14 18:07 20:36 POC Glucose 109 H 125 H 117 H 03/19/19 03/20/19 23:31 06:32 POC Glucose 113 H 156 H OUTPATIENT ANTIDIABETIC REGIMEN: * Metformin ASSESSMENT: 03/20: * Patient received total of 22 units of insulin yesterday, all of which were bolus insulin * BSGs well controlled 109-125-117 mg/dL yesterday * Will continue same CF/CR with AM check - provider now adding on dexamethasone 8 mg iv q 8 hrs. * Anticipate steroid induced hyperglycemia - will plan to tighten CF/CR with lunch and also add basal insulin to help cover steroids * Per provider notes, possible discharge tomorrow PLAN FOR INPATIENT GLYCEMIC CONTROL: * Hold outpatient oral diabetes medications * Basal insulin * 25 units x 1 now (~0.3 units/kg adj BW) - IV steroids ordered as ongoing ; will add scale for Lantus HS * Lantus HS per scale -For bsg less than 110 - no insulin -For BSG 110-180 - give 10 units -For BSG greater than 180 - give 15 units * Bolus insulin - tighten * NovoLog per scale ACHS or Q6hrs while NPO * Goal Range: Low 110 mg/dL - High 140 mg/dL * Correction Factor: 15 mg/dL/unit * Nutritional / Prandial insulin per carb ratio of 1 unit per 5 grams CHO consumed
[2019-03-20] MEDS: HYDROmorphone INJ 1 MG/ML SYRINGE IV PRN (10:52)
[2019-03-20] MEDS: DEXAMETHASONE SOD PHOSPHATE 8 MG in SYRINGE 0 ML IV SCH ×2 (12:16→21:54)
[2019-03-20] MEDS ORDERED: INSULIN GLARGINE SOLOSTAR 100 UNITS/ML 3 ML PEN SC ONE ×2 (13:00→21:00)
[2019-03-20] MEDS: TAMSULOSIN HCL 0.4 MG CAP PO SCH (21:32)
[2019-03-20] MEDS: PANTOprazole 40 MG TAB PO SCH (21:32)
[2019-03-20] MEDS: allopurinoL 300 MG TAB PO SCH (21:32)
[2019-03-20] MEDS: DOCUSATE SODIUM/SENNA 50/8.6MG TAB PO SCH (21:32)
[2019-03-20] MEDS: AMITRIPTYLINE HCL 50 MG TAB PO SCH (21:32)
[2019-03-20] MEDS: ATORVASTATIN 10 MG TAB PO SCH (21:32)
[2019-03-20] MEDS: GABAPENTIN 300 MG CAP PO SCH (21:32)
[2019-03-20] MEDS: CHOLECALCIFEROL 1,000 UNITS 25 MCG TAB PO SCH (21:33)
[2019-03-21] MEDS: INSULIN ASPART 100 UNITS/ML 3 ML PEN SC SCH ×4 (00:35→12:44)
[2019-03-21] MEDS: DEXAMETHASONE SOD PHOSPHATE 8 MG in SYRINGE 0 ML IV SCH (05:39)
[2019-03-21 08:13] VITALS: TEMP 97.5; O2SAT 95
[2019-03-21] MEDS ORDERED: INSULIN GLARGINE SOLOSTAR 100 UNITS/ML 3 ML PEN SC ONE ×2 (08:45→21:00)
--- NOTE | 2019-03-21 08:45 | Pharmacy Report ---
Pharmacy Glycemic Short Note 2 - Date of Service March 21, 2019 - Glycemic Short BSG Results (Last 24 hours): 03/20/19 03/20/19 03/20/19 12:17 17:08 21:08 POC Glucose 118 H 182 H 143 H 03/21/19 03/21/19 03/21/19 00:33 03:56 08:08 POC Glucose 157 H 180 H 180 H OUTPATIENT ANTIDIABETIC REGIMEN: * Metformin ASSESSMENT: 03/21: * Patient received total of 63 units of insulin yesterday, of which 35 were basal insulin * Patient continues on IV dexamethasone - will continue with basal insulin this AM and add scale for tonight * Continue same CF/CR for now, however may need to tighten 03/20: * Patient received total of 22 units of insulin yesterday, all of which were bolus insulin * BSGs well controlled 109-125-117 mg/dL yesterday * Will continue same CF/CR with AM check - provider now adding on dexamethasone 8 mg iv q 8 hrs. * Anticipate steroid induced hyperglycemia - will plan to tighten CF/CR with lunch and also add basal insulin to help cover steroids * Per provider notes, possible discharge tomorrow PLAN FOR INPATIENT GLYCEMIC CONTROL: * Hold outpatient oral diabetes medications * Basal insulin * 25 units Qam -For bsg less than 110 - 5 insulin -For BSG 110-140 - give 10 units -For BSG greater than 140 - give 15 units * Bolus insulin * NovoLog per scale ACHS or Q6hrs while NPO * Goal Range: Low 110 mg/dL - High 140 mg/dL * Correction Factor: 15 mg/dL/unit * Nutritional / Prandial insulin per carb ratio of 1 unit per 5 grams CHO consumed DISCHARGE PLAN: * A1C = 6.1% - indicates great control. Would recommend continuation of outpatient metformin on discharge. Would ensure patient not having any low BSGs at home on medication.
[2019-03-21] MEDS: MULTIVITAMIN TAB PO SCH (09:03)
[2019-03-21] MEDS: BuPROPion SR 100 MG TABCR PO SCH (09:03)
[2019-03-21] MEDS: ACETAMINOPHEN 500 MG TAB PO PRN (09:06)
--- NOTE | 2019-03-21 10:58 | Discharge Summary ---
Date of Service March 21, 2019 Admission HPI Per Admitting Provider This is a 69-year-old male who presents with chronic persistent back and leg pain. After failing extensive course of nonoperative care is here for surgical invention. Principal Diagnosis Lumbar spinal stenosis with neurogenic claudication Discharge Data Allergies Allergy/AdvReac Type Severity Reaction Status Date / Time imipenem Allergy Severe HIVES, Verified 03/17/19 08:29 CANT BREATHE (TOLERATES CEFAZOLIN) latex Allergy Severe TROUBLE Verified 03/17/19 08:29 BREATHING Sulfa (Sulfonamide Allergy Severe CAN'T Verified 03/17/19 08:29 Antibiotics) BREATHE adhesive tape Allergy Unknown Unknown Verified 03/17/19 08:44 iodine Allergy Unknown SOB WITH Verified 03/17/19 08:29 CONTRASRT DYES--TOPICAL OK moxifloxacin Allergy Unknown resp Verified 03/17/19 08:29 distress, hives shrimp Allergy Unknown CAN'T Verified 03/17/19 08:29 BREATHE Consultations 03/17/19 14:33 Consult Case Management - Discharge Planning Routine 03/17/19 14:56 Consult Medical [Consult Internal Medicine] Routine Procedures Performed Operation Date: 03/17/19 09:55 Actual Procedures p L4-S1 Decompression and Fusion with Spinal Cord Monitoring(Not Applicable) - Farooq Burgos DO Ordered Studies 03/17/19 09:55 FL fluoroscopy <1hr Routine FL lumbar spine 2-3V Routine Hospital Course (1) Neurogenic claudication due to lumbar spinal stenosis: Patient underwent multilevel lumbar decompression fusion tolerated as well as taken the orthopedic floor postoperative. He progressed appropriately throughout his hospital stay steadily improving his ability to ambulate and pain control. Since he was discharged home last day he was neurologically intact comfortable. Discharge orders instructions can be found the chart for further view. Total Time Total Time Spent Total Time Spent (In Minutes): 20 minutes Discharge Plan Discharge Items Patient Disposition: Home - Self-Care Reason For Visit: LUMBAR INTERVERTEBRAL DISC DEGENERATION Discharge Diagnosis: Lumbar spinal stenosis with neurogenic claudication Activity: Per Instructions section Non-emergency contact: Primary Care Provider Call non-emergency contact if: you have any medication questions Follow-up/Referrals: Bing Ramos DO [Primary Care Provider] - Diet: Regular Addtl Attending Provider Instructions: ACTIVITY RECOMMENDATIONS: SELF CARE INSTRUCTIONS AFTER THORACIC/LUMBAR FUSIONS 1. You may walk to your tolerance. It is good exercise for your legs and back. Expect some back and intermittent leg aches and pains. 2. You may perform "counter-top" level activities (make a sandwich, chante with a project, etc.). 3. No bending or lifting of more than 10 pounds or back twisting of any nature (roll like a log when turning in bed). 4. You may ride in a car for 20-30 minutes at a time. No driving until after your first visit with your doctor. 5. Frequent changes of position and restricting sitting to 30 minutes at a time will help limit the amount of back spasms and stiffness you may experience. 6. You may discontinue the use of ambulatory aids (cane, crutches, etc.) once your strength and confidence allow. 7. You may export administrator the shower and let water strike your incision when you arrive home at least once daily. Do not take a tub bath, sit in a hot tub or go into a swimming pool until after your first recheck in the office. SPECIAL CARE INSTRUCTIONS: VERY IMPORTANT TO READ AND REVIEW A. Your surgical incision has been closed with a cosmetic suture under the skin that will dissolve in about 6 weeks. In 14 days, you can use a pair of clean scissors and cut the suture that is left outside of the skin at the ends of your incision. 1. The small skin tapes can be removed 7 days after surgery if they have not fallen off by that point. 2. You may keep the wound open to air as much as possible to promote healing after post-op day number 5 unless told otherwise by your doctor. 3. If you think the wound looks like it is becoming infected (redness or worsening drainage) and/or you are experiencing fever, chill or worsening back pain and muscle spasms, contact the office so that we may evaluate you as soon as possible. B. Complications are uncommon, but please contact us if you have any signs or symptoms of: 1. wound infection (fever higher than 102.5 degrees F, redness, separation of wound, drainage, or increasing pain from the incision) 2. blood clots in legs (pain, swelling, redness and warmth in legs) 3. urinary tract infection (fever higher than 102.5 degrees F, burning upon urination or increased frequency of urination) 4. nerve problems (inability to walk on your toes or heels, numbness, loss of bowel or bladder control) 5. any other symptoms that concern you C. Please call the office at if you have any concerns or questions about your operation or recovery. D. No smoking! Smoking drastically decreases the chance of a solid fusion. E. Do not take any anti-inflammatory medications (Indocin, Advil, Motrin, Aspirin, Naprosyn, etc.) as these may inhibit the chance of a solid fusion. Tylenol is okay to take for pain. MANAGING PAIN AFTER SPINAL SURGERY 1. Narcotic medication is intended for short-term use and will be provided for surgical pain. Surgical pain usually lasts for a period of 4-6 weeks. Narcotic medication includes Percocet, Vicodin, Darvocet, Tylenol #3 or Lortab. 2. Longer-term pain is more appropriately treated with non-narcotic medication such as Tylenol ES. 3. Muscle spasm is not appropriately treated with narcotics. Muscle relaxers such as Soma, Flexeril or Skelaxin can be used along with Tylenol ES. 4. Remember that we all live with some "aches and pains". This is not unusual or uncommon after an injury or as we get older. a. Back pain is expected and may include muscle spasms for 4 to 6 weeks after surgery. The pain should gradually improve. If the pain worsens for no apparent reason, please contact the office. b. Intermittent leg pain may also be experienced and should not be concerned about unless it worsens for no apparent reason. If so, please contact the office. 5. We will provide appropriate medication within the normal guidelines of their prescribed use. We will also be very cautious and aware of potential abuse and extended duration of patients' medication needs. a. Pain medications are for your comfort and to assist with sleep and rest so that the tissue can heal. They are not provided in order to return to normal activity and should not be used through the day. To do so or worsening pain at night can result from ongoing tissue damage and development of tolerance to the prescribed medicine. 6. Please allow 2-3 days to process refills. Prescriptions will not be mailed but must be picked up at the office. FOLLOW UP VISIT: Keep your scheduled follow-up appointment. Any questions, please call the office at . Pending Studies at Discharge: No Stand-Alone Forms: My [facility], Smoking Cessation Medications and DC Order Prescriptions: New tramadol 50 mg tablet 50 mg PO Q6H PRN (Reason: pain, moderate) Qty: 30 RF: 0 oxycodone 5 mg tablet 5 mg PO Q6H PRN (Reason: pain, severe) Qty: 30 RF: 0 Continued cyanocobalamin (vitamin B-12) 1,000 mcg/mL solution 1,000 mcg IM MONTHLY Qty: 10 RF: 1 tamsulosin 0.4 mg capsule 0.4 mg PO HS Qty: 90 RF: 3 epinephrine 0.3 mg/0.3 mL auto-injector 0.3 mg IM .COMPLEX PRN (Reason: bronchodilation) Qty: 2 RF: 0 gabapentin 300 mg capsule 300 mg PO HS Qty: 90 RF: 1 cholecalciferol (vitamin D3) 2,000 unit capsule 2,000 units PO HS RF: 0 (DME) BD PrecisionGlide Non-Sterile 25 gauge x 5/8" needle See Dose Instructions .ROUTE .MEDSUPPLY Qty: 100 RF: 0 bupropion HCl [Wellbutrin SR] 100 mg Tablet Sustained-Release 12 Hr 100 mg PO BID RF: 0 atorvastatin 10 mg tablet 10 mg PO HS RF: 0 amitriptyline 150 mg tablet 150 mg PO HS RF: 0 meloxicam 15 mg tablet 15 mg PO HS RF: 0 omeprazole 40 mg capsule,delayed release(DR/EC) 40 mg PO HS RF: 0 allopurinol 300 mg tablet 300 mg PO HS RF: 0 metformin 500 mg tablet extended release 24 hr 1,000 mg PO QAM RF: 0 fluticasone propionate [Flonase Allergy Relief] 50 mcg/actuation [place],Suspension 1 - 2 spray INTRANASAL DAILY PRN (Reason: Congestion) RF: 0 ibuprofen 200 mg Tablet 400 mg PO Q6H PRN (Reason: Pain) RF: 0 multivitamin Tablet,Chewable 2 tab PO BID RF: 0 cyclobenzaprine 5 mg tablet 5 mg PO HS PRN (Reason: muscle spasm) RF: 0 Discharge Orders: Discharge Order (Routine); Ordered 03/21/19 Ordered By: Farooq Burgos Admission Data Admit Date/Time: 03/17/19 14:33 Attending Provider: Farooq Burgos Admit Provider: Farooq Burgos Primary Care Provider: Bing Ramos. Other Providers: Brady Sawyer ; [facility]
[2019-03-21 12:32] VITALS: BP 117/71; PULSE 88
[2019-03-21] MEDS: TRAMADOL HCL 50 MG TABLET PO PRN (12:49)
== END 2019-03-21 13:42 | disposition home or self-care (01) | DRG 460 ==
LOC: ASU 07:33 → 3E 14:33

== ENCOUNTER 2020-05-31 10:34 | Inpatient (IN) ==
--- NOTE | 2020-05-14 16:55 | PAT Medication Instructions ---
Medication Instructions Date of Service May 14, 2020 Home Medications Medication Instructions Recorded gabapentin 300 mg capsule 300 mg PO HS #90 cap 09/28/19 needle (disp) 25 gauge 25 gauge x #100 ea 10/05/19 5/8" epinephrine 0.3 mg/0.3 mL 0.3 mg IM .COMPLEX PRN #2 ea 11/07/19 injection, auto-injector cyanocobalamin (vitamin B-12) 1,000 mcg IM MONTHLY #10 ml 02/15/20 1,000 mcg/mL injection solution meloxicam 15 mg tablet 15 mg PO HS #90 tab 03/20/20 allopurinol 300 mg tablet 300 mg PO HS #90 tab 04/22/20 sumatriptan succinate 100 mg tablet 100 mg PO .COMPLEX PRN #27 tab 05/13/20 tamsulosin 0.4 mg capsule 0.4 mg PO HS #90 cap 05/13/20 cholecalciferol (vitamin D3) 50 mcg (2,000 unit) capsule 2,000 units PO HS fluticasone propionate [Flonase Allergy Relief] 1 - 2 spray INTRANASAL DAILY PRN ibuprofen 400 mg PO Q6H PRN cyclobenzaprine 5 mg tablet 5 mg PO HS PRN cetirizine 10 mg capsule 10 mg PO DAILY PRN gabapentin 300 mg capsule 300 mg PO HS epinephrine 0.3 mg/0.3 mL injection, auto-injector 0.3 mg IM .COMPLEX PRN multivitamin 2 tab PO QAM cyanocobalamin (vitamin B-12) 1,000 mcg/mL injection solution 1,000 mcg IM MONTHLY amitriptyline 100 mg tablet 50 mg PO PM meloxicam 15 mg tablet 15 mg PO HS allopurinol 300 mg tablet 300 mg PO HS amlodipine 5 mg PO PM atorvastatin 20 mg PO PM bupropion HCl 100 mg tablet,12 hr sustained-release 200 mg PO HS metformin 2,000 mg PO QAM omeprazole 40 mg PO PM sumatriptan succinate 100 mg tablet 100 mg PO .COMPLEX PRN tamsulosin 0.4 mg capsule 0.4 mg PO HS Continue as directed epinephrine 0.3 mg/0.3 mL injection, auto-injector 0.3 mg IM .COMPLEX PRN cyanocobalamin (vitamin B-12) 1,000 mcg/mL injection solution 1,000 mcg IM MONTHLY ASK your surgeon for instructions ibuprofen 400 mg PO Q6H PRN meloxicam 15 mg tablet 15 mg PO HS DO NOT take the morning of surgery cetirizine 10 mg capsule 10 mg PO DAILY PRN multivitamin 2 tab PO QAM metformin 2,000 mg PO QAM Take morning of surgery With a small sip of water, OTHERWISE NOTHING TO EAT OR DRINK AFTER MIDNIGHT: fluticasone propionate [Flonase Allergy Relief] 1 - 2 spray INTRANASAL DAILY PRN (if needed) sumatriptan succinate 100 mg tablet 100 mg PO .COMPLEX PRN Take evening before surgery cholecalciferol (vitamin D3) 50 mcg (2,000 unit) capsule 2,000 units PO HS fluticasone propionate [Flonase Allergy Relief] 1 - 2 spray INTRANASAL DAILY PRN (if needed) cyclobenzaprine 5 mg tablet 5 mg PO HS PRN (if needed) cetirizine 10 mg capsule 10 mg PO DAILY PRN (if needed) gabapentin 300 mg capsule 300 mg PO HS amitriptyline 100 mg tablet 50 mg PO PM allopurinol 300 mg tablet 300 mg PO HS amlodipine 5 mg PO PM atorvastatin 20 mg PO PM bupropion HCl 100 mg tablet,12 hr sustained-release 200 mg PO HS omeprazole 40 mg PO PM sumatriptan succinate 100 mg tablet 100 mg PO .COMPLEX PRN (if needed) tamsulosin 0.4 mg capsule 0.4 mg PO HS Other Notes If you have any questions please call us at [phone] or [phone] or [phone] or [phone]
--- NOTE | 2020-05-15 15:13 | Anesthesiology Consultation ---
Date of Service May 15, 2020 Assessment & Plan Chart Review Chart Review: Patient seen in Pre Admission Testing - Per assessment on 05/15: Travel screen negative. No known COVID-19 positive contacts or current COVID-19 related symptoms. Patient had vaccine #1 05/10. Surgeon arranging preop COVID testing. Awaiting results. - Check BSG AM DOS - S/P L4-S1 decompression/fusion (03/17/19): Grade view 1, MAC#3, ETT 8.0 at [facility] - Sleep disorder visit (01/24/20): "mild sleep disordered breathing. He has an irregular sleep-wake cycle and initiation and maintenance insomnia likely perpetuated by psychophysiologic insomnia. He also has comorbid medical insomnia attributable to his pain issues." Trial of CPAP discussed. Patient states further discussion was done with Dr. Armstrong and decision made not to trial CPAP. - PCP office visit (03/18/20): Chronic issues addressed. "Consult Neurology to further evaluate tremor and concern over forgetfulness" - Neurology office visit (05/13/20): "MRI of brain evaluate for intracranial mass or increased pressure, inflammation or lesion.. For the migrainous headaches start sumatriptan as needed and keep track.. Memory impairment: Suspect multifactorial related to depression, chronic pain, possible neuro cognitive disorder.. Neuropsych testing evaluate for dementia or pseudodementia, 4 to 6 month wait list.. Tremor: Bilateral action tremor, essential tremor. Do not see parkinsonism today. Discussed symptomatic treatment such as a propranolol which may also help headaches and anxiety to some degree however he is already on another blood pressure medication." MRI brain scheduled 05/21 (CT)- awaiting res ults. Teaching & Discussion Pre-Anesthesia Teaching/Discussion Notes: Instructed NPO after midnight before surgery,except medications with 15 cc of water. Medication instructions provided according to the PAT guidelines. History Surgery Operation Date: 05/31/20 13:00 Proposed Procedures p Right Reverse Total shoulder Arthroplasty - Sd [place], Height/Weight Height: 5 ft 11 in Weight: 120.7 kg Allergies Allergy/AdvReac Type Severity Reaction Status Date / Time imipenem Allergy Severe Hives, Verified 05/15/20 14:39 dyspnea (tolerates Cefazolin) latex Allergy Severe Dyspnea Verified 05/15/20 14:39 Sulfa (Sulfonamide Allergy Severe Dyspnea Verified 05/15/20 14:39 Antibiotics) adhesive tape Allergy Unknown Rash Verified 05/13/20 13:44 iodine Allergy Unknown Dyspnea Verified 05/15/20 14:39 with contrast dyes (tolerates topical use) moxifloxacin Allergy Unknown Respiratory Verified 05/15/20 14:39 distress, hives shrimp Allergy Unknown Dyspnea Verified 05/15/20 14:39 Primaxin SOLR Allergy Unknown Dyspnea Uncoded 05/15/20 14:39 Medications Home Medications Medication Instructions Recorded Confirmed Last Taken cholecalciferol (vitamin D3) 50 2,000 units PO HS cap 11/11/18 05/13/20 03/16/19 23:00 mcg (2,000 unit) capsule fluticasone propionate [Flonase 1 - 2 spray INTRANASAL DAILY PRN 02/22/1903/15/19 Allergy Relief] ibuprofen 400 mg PO Q6H PRN 02/22/19 05/13/20 Unknown cyclobenzaprine 5 mg tablet 5 mg PO HS PRN tab 03/16/19 05/13/20 Unknown cetirizine 10 mg capsule 10 mg PO DAILY PRN cap 09/12/19 05/13/20 Unknown gabapentin 300 mg capsule 300 mg PO HS #90 cap 09/28/19 05/13/20 Unknown needle (disp) 25 gauge 25 gauge x #100 ea 10/05/19 05/13/20 Unknown 5/8" epinephrine 0.3 mg/0.3 mL 0.3 mg IM .COMPLEX PRN #2 ea 11/07/19 05/13/20 Unknown injection, auto-injector multivitamin 2 tab PO QAM tab 01/15/20 05/13/20 Unknown cyanocobalamin (vitamin B-12) 1,000 mcg IM MONTHLY #10 ml 02/15/20 05/13/20 Unknown 1,000 mcg/mL injection solution amitriptyline 100 mg tablet 50 mg PO PM tab 03/18/20 05/13/20 Unknown meloxicam 15 mg tablet 15 mg PO HS #90 tab 03/20/20 05/13/20 Unknown allopurinol 300 mg tablet 300 mg PO HS #90 tab 04/22/20 05/13/20 Unknown amlodipine 5 mg PO PM 05/13/20 05/13/20 Unknown atorvastatin 20 mg PO PM 05/13/20 05/13/20 Unknown metformin 2,000 mg PO QAM 05/13/20 05/13/20 Unknown omeprazole 40 mg PO PM 05/13/20 05/13/20 Unknown sumatriptan succinate 100 mg tablet 100 mg PO .COMPLEX PRN #27 tab 05/13/2011/23 Unknown tamsulosin 0.4 mg capsule 0.4 mg PO HS #90 cap 05/13/20 05/13/20 Unknown bupropion HCl 100 mg tablet,12 hr 200 mg PO HS #180 ea 05/15/20 Unknown sustained-release Past Medical History Medical History Allergic rhinitis, cause unspecified BPH loc w urin obs/LUTS Depressive disorder, not elsewhere classified Diabetes NIDDM Generalized osteoarthritis GERD without esophagitis Gouty arthropathy, unspecified History of diverticulitis of colon s/p hemicolectomy (1984) Hyperlipidemia Hypertension Idiopathic polyneuropathy Lumbar stenosis Nephrolithiasis passed without intervention Neurogenic claudication due to lumbar spinal stenosis Obesity, unspecified Periodic limb movement disorder 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 Exercise / Class Metabolic Activity II 4-5 Yardwork/Stairs/Walk up hill Past Family History Family History Father Family history of diabetes mellitus Kidney stones Denies family history of Ovarian cancer Prostate cancer Myocardial infarction Breast cancer Colorectal cancer Past Surgical History Surgical History 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) History of appendectomy History of arthroplasty of left knee (2009) History of arthroscopic knee surgery (2002) R knee, ACL repair History of arthroscopic surgery of elbow Left History of carpal tunnel surgery R/L History of cataract surgery R/L History of colonoscopy multiple History of gastric bypass (1994) History of partial colectomy (1984) secondary to diverticulitis History of total right hip arthroplasty Hx of lumbosacral spine surgery L4-S1 decompression/fusion (03/17/19): Grade view 1, MAC#3, ETT 8.0 at [facility] Nausea and vomiting after administration of anesthetic agent S/P arthroscopy of shoulder (1999) Right S/P cervical spinal fusion (2010) C2-5 (ROM WNL per patient) S/P rotator cuff repair (2000) Right S/P tonsillectomy Past Anesthesia History No Hx of Anesthesia Complications (except PONV) and No Family Hx of Anesthesia Complications History of PONV No Hx of Motion Sickness and History of PONV (No issue when pre-treatment given) Social History Smoking Status: Former smoker Do You Dip or Chew Tobacco: No Smoking End Date: Quit 1984 (hx tobacco use x 5 years) Hx Alcohol Use: No Hx Substance Use: No substance use type: does not use Review of Systems + "mild" snoring. No witnessed apneic events. Patient denies chest pain, shortness of breath, dyspnea on exertion, joint pain, reflux, cough, wheezing, palpitations. Physical Exam Vital Signs VITALS BP 126/75 P 91 TEMP 98.3 SP02 95%RA RESP 18 PHYSICAL Full neck and c-spine range of motion. Full TMJ range of motion. TMD 2 finger breaths Mallampati Score 3 Dentition: partial upper Lungs: clear throughout to auscultation Cardiac: regular rate and rhythm, no murmurs noted Spine: normal Carotid arteries: negative bruit Extremities: no edema Testing Laboratory Results 05/15/20 15:37 05/15/20 15:37 PT 9.4 Seconds (9.0-12.0) 05/15/20 15:37 INR 0.9 (0.9-1.1) 05/15/20 15:37 APTT 23.0 Seconds (21.0-31.0) 05/15/20 15:37 Hemoglobin A1c 6.6 % (4.5-5.6) H 05/15/20 15:37 Blood Type A Positive 05/15/20 15:37 Antibody Screen NEGATIVE 05/15/20 15:37 Electrocardiogram Date: 01/29/20 SR at 91bpm. Chest X-Ray Date: 05/15/20 FINDINGS: Lung volumes are normal. Lungs are clear. There is no pneumothorax or pleural effusion. Cardiac size is normal. Mediastinal contours are normal. There is no evidence for pulmonary edema. Incidental note is made of postoperative findings within the neck and cervical spine. IMPRESSION: No acute cardiopulmonary findings. Echocardiogram Date: 04/24/19 EF 55 to 60%. Borderline concentric LVH. No regional wall motion abnormalities. No significant valvular disease. Grade 1 diastolic dysfunction.
[2020-05-15 15:51] LABS: Basophils # (auto) 0.04 K/uL (0-0.2); Basophils % (auto) 0.6 %; Eosinophils # (auto) 0.19 K/uL (0-0.5); Eosinophils % (auto) 2.8 %; Hematocrit (blood only) 42.6 % (42-52); Hemoglobin 14.5 g/dL (14.0-18.0); Immature Granulocytes # (auto) 0.03 K/uL (0.00-0.02); Immature Granulocytes % (auto) 0.4 %; Lymphocytes # (auto) 1.91 K/uL (1.2-3.4); Lymphocytes % (auto) 28.2 %; Mean Corpuscular Hemoglobin 31.3 pg (25-34); Mean Corpuscular Volume 91.8 fL (80-100); Mean Platelet Volume 9.6 fL (7.4-10.4); Monocytes # (auto) 0.67 K/uL (0.11-0.59); Monocytes % (auto) 9.9 %; Neutrophils # (auto) 3.93 K/uL (1.4-6.5); Neutrophils % (auto) 58.1 %; Platelet Count 227 K/uL (130-400); RDW Standard Deviation 43.2 fL (36.4-46.3); Red Blood Count 4.64 M/uL (4.7-6.1); White Blood Count 6.77 K/uL (4.8-10.8)
[2020-05-15 16:03] LABS: INR 0.9 (0.9-1.1); Partial Thromboplastin Ratio 0.9; Prothrombin Time 9.4 Seconds (9.0-12.0)
[2020-05-15 16:08] LABS: BUN Creatinine Ratio 20.3 (10-20); Calcium 9.2 mg/dl (8.5-10.1); Creatinine Clr Calc Pharmacy 82.7 ml/min; Est GFR (Non-African American) 66.4; Potassium 4.5 mmol/L (3.5-5.1)
--- NOTE | 2020-05-15 16:09 | XRay Report ---
XR chest Pre-admission PA/Lat CLINICAL HISTORY: Preoperative evaluation. COMPARISON STUDY: Chest radiograph March 03, 2019. FINDINGS: Lung volumes are normal. Lungs are clear. There is no pneumothorax or pleural effusion. Car diac size is normal. Mediastinal contours are normal. There is no evidence for pulmonary edema. Incid ental note is made of postoperative findings within the neck and cervical spine. IMPRESSION: No acute cardiopulmonary findings. ACT 112: Negative or not required by law. Electronically signed by: Anmol Wilkes M.D. 05/15/2020 4:08 PM
[2020-05-16 06:16] LABS: Estimated Average Glucose 143 mg/dl; Hemoglobin A1C 6.6 % (4.5-5.6)
--- NOTE | 2020-05-30 15:51 | History & Physical Report ---
Date of Service May 30, 2020 Assessment & Plan (1) Rotator cuff tear: We will proceed with a right reverse shoulder arthroplasty. Postoperatively he will be placed in a sling and kept overnight in the hospital for postoperative medical management. He plans to [facility] upon discharge. History of Present Illness Chief Complaint: Cuff arthropathy of the right shoulder. Primary Care Provider: Bing Ramos DO Alejandre is a pleasant 70-year-old male who is been having chronic right shoulder pain. He had a rotator cuff repair by Dr. Richard in 2017 in [place]. He has been having pain since. He has pain reaching away from his body or doing anything up overhead. MRI showed a large retracted retear of the rotator cuff. After failing conservative treatment, he elected to proceed with a right reverse shoulder arthroplasty.. Allergies Allergy/AdvReac Type Severity Reaction Status Date / Time imipenem Allergy Severe Hives, Verified 05/15/20 14:39 dyspnea (tolerates Cefazolin) latex Allergy Severe Dyspnea Verified 05/15/20 14:39 Sulfa (Sulfonamide Allergy Severe Dyspnea Verified 05/15/20 14:39 Antibiotics) adhesive tape Allergy Unknown Rash Verified 05/13/20 13:44 iodine Allergy Unknown Dyspnea Verified 05/15/20 14:39 with contrast dyes (tolerates topical use) moxifloxacin Allergy Unknown Respiratory Verified 05/15/20 14:39 distress, hives shrimp Allergy Unknown Dyspnea Verified 05/15/20 14:39 Primaxin SOLR Allergy Unknown Dyspnea Uncoded 05/15/20 14:39 Home Medications Medication Instructions Recorded Confirmed Type cholecalciferol (vitamin D3) 50 2,000 units PO HS cap 11/11/18 05/13/20 History mcg (2,000 unit) capsule fluticasone propionate [Flonase 1 - 2 spray INTRANASAL DAILY PRN 02/22/19 05/13/20 History Allergy Relief] ibuprofen 400 mg PO Q6H PRN 02/22/19 05/13/20 History cyclobenzaprine 5 mg tablet 5 mg PO HS PRN tab 03/16/19 05/13/20 History cetirizine 10 mg capsule 10 mg PO DAILY PRN cap 09/12/19 05/13/20 History gabapentin 300 mg capsule 300 mg PO HS #90 cap 09/28/19 05/13/20 Rx needle (disp) 25 gauge 25 gauge x #100 ea 10/05/19 05/13/20 Rx 5/8" epinephrine 0.3 mg/0.3 mL 0.3 mg IM .COMPLEX PRN #2 ea 11/07/19 05/13/20 Rx injection, auto-injector multivitamin 2 tab PO QAM tab 01/15/20 05/13/20 History cyanocobalamin (vitamin B-12) 1,000 mcg IM MONTHLY #10 ml 02/15/20 05/13/20 Rx 1,000 mcg/mL injection solution amitriptyline 100 mg tablet 50 mg PO PM tab 03/18/20 05/13/20 History meloxicam 15 mg tablet 15 mg PO HS #90 tab 03/20/20 05/13/20 Rx allopurinol 300 mg tablet 300 mg PO HS #90 tab 04/22/20 05/13/20 Rx atorvastatin 20 mg PO PM 05/13/20 05/13/20 History metformin 2,000 mg PO QAM 05/13/20 05/13/20 History omeprazole 40 mg PO PM 05/13/20 05/13/20 History sumatriptan succinate 100 mg tablet 100 mg PO .COMPLEX PRN #27 tab 05/13/20 05/13/20 Rx tamsulosin 0.4 mg capsule 0.4 mg PO HS #90 cap 05/13/20 05/13/20 Rx bupropion HCl 100 mg tablet,12 hr 200 mg PO HS #180 ea 05/15/20 Rx sustained-release amlodipine 5 mg tablet 5 mg PO PM #90 tab 05/21/20 Rx Past Med/Surg History Medical History Allergic rhinitis, cause unspecified BPH loc w urin obs/LUTS Depressive disorder, not elsewhere classified Diabetes NIDDM Generalized osteoarthritis GERD without esophagitis Gouty arthropathy, unspecified History of diverticulitis of colon s/p hemicolectomy (1984) Hyperlipidemia Hypertension Idiopathic polyneuropathy Lumbar stenosis Nephrolithiasis passed without intervention Neurogenic claudication due to lumbar spinal stenosis Obesity, unspecified Periodic limb movement disorder 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 Surgical History 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) History of appendectomy History of arthroplasty of left knee (2009) History of arthroscopic knee surgery (2002) R knee, ACL repair History of arthroscopic surgery of elbow Left History of carpal tunnel surgery R/L History of cataract surgery R/L History of colonoscopy multiple History of gastric bypass (1994) History of partial colectomy (1984) secondary to diverticulitis History of total right hip arthroplasty Hx of lumbosacral spine surgery L4-S1 decompression/fusion (03/17/19): Grade view 1, MAC#3, ETT 8.0 at [facility] Nausea and vomiting after administration of anesthetic agent S/P arthroscopy of shoulder (1999) Right S/P cervical spinal fusion (2010) C2-5 (ROM WNL per patient) S/P rotator cuff repair (2000) Right S/P tonsillectomy Family History Father Family history of diabetes mellitus Kidney stones Denies family history of Ovarian cancer Prostate cancer Myocardial infarction Breast cancer Colorectal cancer Social History Smoking Status: Former smoker packs per day: 3; Second Hand Exposure: No; Hx Alcohol Use: No Hx Substance Use: No Preferred Language: Armenian Communication Ability: Effective Visual Impairment: Limited Hearing Ability: Normal Cleat Thrower Required: No Beliefs That Will Affect Care: None marital status: Current Living Situation: Significant Other current occupational status: retired current occupation: Retired from [employer]. Feels Safe at Home: Yes Childhood Exposure to Second-Hand Smoke: Yes caffeine: Yes (Coffee x 2 per day. ) during the past year weight has: remained stable Dental Care, Regularly: Yes Physical Activity Frequency: Daily Seatbelt Use: always Sunscreen Use: Yes Assistive Devices: Glasses Review of Systems All systems reviewed & are unremarkable except as noted in HPI & below. Physical Exam On physical examination of the right shoulder, he has about 90 degrees of forward elevation 90 degrees of abduction. He has 4 out of 5 motion with full can testing 5 5 motion with external rotation. He has pain in the subacromial space.. Constitutional WD/WN, vitals as above Eyes PERRL, conjunctivae normal, anicteric sclerae ENMT external ear and nose normal, oropharynx normal Neck trachea midline, no thyromegaly Respiratory normal respiratory effort Cardiovascular RRR, no murmur, no edema Gastrointestinal (Abdomen) normal bowel sounds, soft, nontender, no hepatosplenomegaly Psychiatric A+Ox3, euthymic affect Results & Data Results & Data Laboratory Results . Diagnostic Findings MRI of the right shoulder shows a large retracted retear of the rotator cuff and superior migration of the humeral head on the glenoid.. PG Care Time/CCT Total # of Minutes Spent Total Time Spent with Patient: Total time spent is greater than 50% in coordination of care (as documented) at patient's floor/unit and/or counseling patient: Coding Level of Care Code None Diagnoses Rotator cuff tear M75.100
[~2020-05-31 10:34] MED LIST changes: +BUPIVACAINE 0.5 % 5 MG/1 ML PF 10ML VIAL ONE; -CEFAZOLIN 2000MG 2,000 MG/15 ML SYR IV SCH; -CeleBREX 200 MG CAP PO SCH; +FAMOTIDINE 20 MG TAB PO SCH; -GABAPENTIN 300 MG CAP PO SCH; +GABAPENTIN 600 MG DOSE PO SCH; -HYDROmorphone INJ 2 MG/ML SYR/VIAL ONE; +LR 60ML/HR IV SCH; -MIDAZOLAM HCL 1 MG/ML 2ML VIAL ONE; +ROPIVACAINE 0.5% HCL/PF 150 MG, BUPIVACAINE 0.75% MPF 20 ML, EPINEPHrine 30MG/30ML (OR ... INSTIL SCH; +TRANEXAMIC ACID 1,000 MG **IV Intra-op IV SCH; +TRANEXAMIC ACID 1,000 MG **IV Pre-op IV SCH; +dexAMETHasone 4 MG TAB PO SCH; -fentaNYL citrate 100 MCG/2 ML VIAL ONE
[2020-05-31] MEDS ORDERED: LIDOCAINE HCL 2% 2 ML VIAL/AMP(20MG/ML) INFIL ONE (10:55)
[2020-05-31] MEDS ORDERED: PROPOFOL IV EMULSION 10 MG/ML 20 ML VIAL IV ONE (10:55)
[2020-05-31] MEDS ORDERED: fentaNYL citrate 100 MCG/2 ML VIAL ONE (10:55)
[2020-05-31] MEDS ORDERED: MIDAZOLAM HCL 1 MG/ML 2ML VIAL ONE (10:55)
[2020-05-31] MEDS ORDERED: ONDANSETRON INJ 2 MG/ML 2 ML VIAL ONE (10:55)
--- NOTE | 2020-05-31 10:56 | History & Physical Bridge Note ---
Date of Service May 31, 2020 History & Physical Bridge Note I have examined the patient, reviewed the History & Physical and in the interval since the performance of the History & Physical I have noted the following changes of clinical significance: no changes noted
[2020-05-31] MEDS ORDERED: ORTHO JOINT ANESTHETIC ONE (11:21)
[2020-05-31] MEDS ORDERED: SUCCINYLCHOLINE CHLORIDE 20 MG/ML 10 ML VIAL IV ONE (13:27)
--- NOTE | 2020-05-31 13:41 | Operative Report ---
PG Post Operative Report Pre & Post Diagnosis Operation Date: 05/31/20 12:40 Pre-Op Diagnosis: Rotator cuff arthropathy of the right shoulder with tendinopathy of the long head of the biceps tendon Post-Op Diagnosis: Rotator cuff arthropathy of the right shoulder with tendinopathy of the long head of the biceps tendon I identified the patient and participated in the time-out.: Yes Procedure Operation Date: 05/31/20 12:40 Actual Procedures p Right Reverse Total shoulder Arthroplasty with open biceps tenodesis as a distinct and separate procedure (modifier 59) (Right) - Sd Bingham DO Surgeon Sd Bingham DO Agricultural Equipment Operator Sd Palumbo PAC Estimated Blood Loss 200 Findings Consistent with Post-Op Diagnosis Specimens Right humeral head Complications none Disposition Disposition: Recovery Room Indications Hill is a pleasant 70-year-old male who presented to my office with complaints of chronic right shoulder pain. He had a rotator cuff repair in 2017. MRI showed a failed cuff repair. After failing conservative treatment, he elected proceed with a right reverse shoulder arthroplasty. Description of Procedure A CPT code modifier 59: The long head of the biceps tendon was enlarged and inflamed consistent with tendinopathy. A tenodesis was opted. This was a separate and distinct portion of the procedure. For these reasons, a CPT code modifier 59 will be added to this case. Implants used: I used a [employer]omet Comprehensive reverse total shoulder arthroplasty system with a size 11 press fit micro humeral stem, a standard humeral tray and a standard humeral bearing, a 25 mm small augment baseplate with a 6.5 mm central screw and superior and inferior locking screws, and a size 40 mm eccentric glenosphere. Hill arrived at [facility] for the above procedure. He was seen in the preoperative holding area and the operative extremity was identified and signed. He was given a preoperative antibiotic, TXA, and an interscalene nerve block. He was taken back to the operating room, laid on table in supine position, and put under general anesthesia. He was then put into the beachchair position. The shoulder was then prepped and draped in sterile fashion. A timeout was done and the patient and the operative extremity was properly identified. A deltopectoral approach was used. Dissection was taken down through the fascia and the deltoid was retracted laterally and the conjoined tendon was retracted medially. The anterior shoulder was exposed. The biceps groove was opened up and the biceps tendon was examined extensively. The biceps tendon demonstrated enlargement and inflammatory changes consistent with longstanding inflammation in the context of osteoarthritis and cuff arthropathy. The long head of the biceps tendon was then tenodesed to the upper border of the pectoralis major. This was a separate and distinct portion of the procedure. The subscapularis was then directly released off the lesser tuberosity with a peel technique. The inferior capsule was released and the humeral head was dislocated. A canal finding reamer was sent down the center of the humeral canal. Sequential reaming up to a size 11 reamer was done. Off that reamer, a proximal humeral resection guide was placed. The proximal humerus was resected at 135 of inclination and 25 of retroversion. Osteophytes were then removed and the glenoid was exposed. Time was spent doing a complete capsular and labral release. The glenoid guide was then placed in the inferior aspect of the glenoid. A 3.2 mm Steinmann pin was then placed into the glenoid vault at 10 of inclination. The glenoid baseplate was then reamed. The final size 25 mm small augment baseplate was then impacted in the place. A 6.5 mm central screw was then placed followed by superior and inferior locking screws. A 40 mm eccentric glenosphere was then impacted into place. Surrounding soft tissues were then injected with 100 cc an orthopedic pain control cocktail. The proximal humerus was then exposed. Sequential broaching of the humerus up to a size 11 broach was done. Off that broach a standard humeral tray was trialed. The shoulder was then reduced, brought through a full range of motion, and felt to be stable. The shoulder was then dislocated and the broach was removed. The final size 11 micro press-fit humeral stem was then impacted into place. A standard humeral bearing was then snapped onto a standard humeral tray. The humeral tray was then impacted onto the humeral stem. The shoulder was once again reduced, brought through a full range of motion, and felt to be stable. The subscapularis was then tenodesed back to the lesser tuberosity with transosseous FiberWire sutures and side to side sutures with the arm in 45 of external rotation. A dilute betadyne lavage was then done for 3 minutes. The joint was then irrigated with normal saline solution. Hemostasis was obtained. The interval was closed with 2-0 Vicryl suture. The skin was then closed with 2-0 Vicryl and wendie. A Silverlon dressing was placed and the arm was rested in a regular arm sling. He was then extubated and transferred to a hospital bed. He taken to the postanesthesia care unit in stable condition. He tolerated the procedure well. Sd Palumbo PA-C, was present for the entire procedure. He was critical for patient positioning, prepping, draping, retraction exposure, wound closure and application of sterile dressing. I attest to the content of the Intraoperative Record and any orders documented therein. Any exceptions are noted below.
--- NOTE | 2020-05-31 14:25 | XRay Report ---
XR shoulder RT min 2V routine CLINICAL HISTORY: Post shoulder surgery COMPARISON: Chest x-ray dated 05/15/2020 DISCUSSION: There is elevation right hemidiaphragm, finding not present on a chest x-ray dated 021. There are postsurgical changes of a reverse total right shoulder arthroplasty. There is gas in t he soft tissues consistent with recent surgery. There are overlying skin wendie. Postsurgical change s are also evident within the cervical spine IMPRESSION: 1. Postsurgical changes of a reverse total right shoulder arthroplasty 2. Interval development of an elevated right hemidiaphragm. ACT 112: Negative or not required by law. Electronically signed by: Thuan Casas M.D. 05/31/2020 2:24 PM
--- NOTE | 2020-05-31 14:25 | Anesthesiology Progress Note ---
Date of Service May 31, 2020 Anesthesia Post Procedure Vital Signs Vital Signs: Temp Pulse Pulse Resp BP Pulse Ox 05/31/20 14:20 91 H 18 158/88 H 97 05/31/20 14:10 95 H 18 146/93 H 94 05/31/20 14:00 36.0 C L 90 18 158/74 H 94 05/31/20 10:50 36.5 C 106 H 20 171/83 H 97 Pain Intensity Right Shoulder: Pain Intensity: 3 Transfer of Care Handoff Completed per policy Notes Mental Status: alert / awake / arousable Patient Amnestic to Procedure: Yes Nausea / Vomiting: adequately controlled Pain: adequately controlled Airway Patency, RR, SpO2: stable & adequate BP & HR: stable & adequate Hydration State: stable & adequate Anesthetic Complications: no major complications apparent Notes: block working well in pacu
[2020-05-31] MEDS ORDERED: CYCLOBENZAPRINE HCL 5 MG TAB PO PRN (14:57)
[2020-05-31] MEDS ORDERED: HYDROmorphone INJ 0.5 MG/0.5 ML SYR IV PRN (14:57)
[2020-05-31] MEDS ORDERED: SUMAtriptan succinate 100 MG TAB PO PRN (14:57)
[2020-05-31] MEDS ORDERED: NALOXONE HCL 0.4 MG/1 ML VIAL/CARP IV PRN (14:57)
[2020-05-31] MEDS ORDERED: METOCLOPRAMIDE HCL INJ 5 MG/ML 2 ML VIAL IV PRN (14:57)
[2020-05-31] MEDS ORDERED: CETIRIZINE HCL 10 MG TABLET PO PRN (14:57)
[2020-05-31] MEDS ORDERED: MAGNESIUM HYDROXIDE SUSP 30 ML UDC PO PRN (14:57)
[2020-05-31] MEDS ORDERED: oxyCODONE HCL IR 5 MG TAB (IMMEDIATE RELEASE) PO PRN (14:57)
[2020-05-31] MEDS ORDERED: FLUTICASONE PROPIONATE NA SPR 16 GM BTL PRN (14:57)
[2020-05-31] MEDS ORDERED: ONDANSETRON INJ 2 MG/ML 2 ML VIAL IV PRN (14:57)
[2020-05-31] MEDS ORDERED: bisacodyL 10 MG SUPP PR PRN (14:57)
[2020-05-31] MEDS ORDERED: EPINEPHrine ADULT AUTO-INJECT 0.3 MG SYR IM PRN (14:57)
[2020-05-31] MEDS: SODIUM CHLORIDE 0.9% 1000ML 1,000 ML IV SCH (15:13)
[2020-05-31] MEDS: ceFAZolin 2000MG 2,000 MG/15 ML SYR IV SCH (16:41)
[2020-05-31] MEDS: KETOROLAC TROMETHAMINE 15 MG/ML VIAL IV SCH ×2 (16:41→21:14)
[2020-05-31] MEDS: KETOROLAC 0.5% OP SOLN 5 ML BTL OPR SCH ×2 (16:42→21:04)
[2020-05-31] MEDS ORDERED: allopurinoL 300 MG TAB PO SCH (21:00)
[2020-05-31] MEDS ORDERED: SENNA 8.6 MG TAB PO SCH (21:00)
[2020-05-31] MEDS ORDERED: AMITRIPTYLINE HCL 50 MG TAB PO SCH (21:00)
[2020-05-31] MEDS ORDERED: PANTOprazole 40 MG TAB PO SCH (21:00)
[2020-05-31] MEDS ORDERED: buPROPion SR 100 MG TABCR PO SCH (21:00)
[2020-05-31] MEDS ORDERED: ATORVASTATIN 20 MG TAB PO SCH (21:00)
[2020-05-31] MEDS ORDERED: GABAPENTIN 300 MG CAP PO SCH (21:00)
[2020-05-31] MEDS ORDERED: CHOLECALCIFEROL 1,000 UNITS 25 MCG TAB PO SCH (21:00)
[2020-05-31] MEDS ORDERED: TAMSULOSIN HCL 0.4 MG CAP PO SCH (21:00)
[2020-05-31] MEDS ORDERED: amLODIPine BESYLATE 5 MG TAB PO SCH (21:00)
[2020-05-31] MEDS: DOCUSATE SODIUM 100 MG CAP PO SCH (21:06)
[2020-05-31] MEDS: SODIUM CHLORIDE 5% OP SOLN 15 ML BTL OP SCH (21:07)
[2020-05-31] MEDS: prednisoLONE acetate 1% OP SUSP 5 ML BTL OP SCH (21:08)
[2020-05-31] MEDS: ACETAMINOPHEN 500 MG TAB PO SCH (21:13)
[2020-05-31] MEDS ORDERED: PHARMACY GLYCEMIC MGMT CONSULT PRN (21:14)
[2020-05-31] MEDS ORDERED: DEXTROSE 50% 50 ML SYRINGE IV PRN (21:30)
[2020-05-31] MEDS ORDERED: GLUCAGON FOR INJ 1 MG VIAL IM PRN (21:30)
[2020-05-31] MEDS ORDERED: GLUCOSE 40% GEL 15 GM TUBE PO PRN (21:30)
[2020-05-31] MEDS ORDERED: GLUCOSE 10 TABS/TUBE PO PRN (21:30)
[2020-05-31] MEDS ORDERED: CARBOHYDRATES FOR HYPOGLYCEMIA PO PRN (21:30)
[2020-05-31] MEDS ORDERED: INSULIN GLARGINE SOLOSTAR 100 UNITS/ML 3 ML PEN SC SCH (21:30)
[2020-05-31] MEDS: INSULIN ASPART 100 UNITS/ML 3 ML PEN SC SCH (22:22)
[2020-06-01] MEDS: INSULIN ASPART 100 UNITS/ML 3 ML PEN SC SCH ×3 (00:30→08:36)
[2020-06-01] MEDS: SODIUM CHLORIDE 0.9% 1000ML 1,000 ML IV SCH (00:34)
[2020-06-01] MEDS: ceFAZolin 2000MG 2,000 MG/15 ML SYR IV SCH (00:34)
[2020-06-01] MEDS: KETOROLAC TROMETHAMINE 15 MG/ML VIAL IV SCH ×2 (04:04→10:16)
[2020-06-01] MEDS: ACETAMINOPHEN 500 MG TAB PO SCH (06:23)
[2020-06-01 06:55] LABS: Eosinophils # (auto) 0.01 K/uL (0-0.5); Eosinophils % (auto) 0.1 %; Hematocrit (blood only) 39.3 % (42-52); Hemoglobin 13.2 g/dL (14.0-18.0); Immature Granulocytes # (auto) 0.04 K/uL (0.00-0.02); Immature Granulocytes % (auto) 0.3 %; Lymphocytes # (auto) 0.87 K/uL (1.2-3.4); Lymphocytes % (auto) 7.1 %; Mean Corpuscular Hemoglobin 30.5 pg (25-34); Mean Corpuscular Hgb Conc 33.6 g/dL (32-36); Mean Corpuscular Volume 90.8 fL (80-100); Mean Platelet Volume 9.3 fL (7.4-10.4); Monocytes # (auto) 0.86 K/uL (0.11-0.59); Neutrophils # (auto) 10.46 K/uL (1.4-6.5); Neutrophils % (auto) 85.5 %; Platelet Count 206 K/uL (130-400); RDW Coefficient of Variation 12.9 % (11.5-14.5); RDW Standard Deviation 42.8 fL (36.4-46.3); Red Blood Count 4.33 M/uL (4.7-6.1); White Blood Count 12.24 K/uL (4.8-10.8)
[2020-06-01 07:23] LABS: BUN Creatinine Ratio 17.5 (10-20); Calcium 8.7 mg/dl (8.5-10.1); Creatinine Clr Calc Pharmacy 79.2 ml/min; Est GFR (African American) 73.8; Est GFR (Non-African American) 63.7; Potassium 4.6 mmol/L (3.5-5.1)
--- NOTE | 2020-06-01 07:51 | Orthopedic Progress Note ---
Date of Service June 01, 2020 Assessment & Plan (1) Status post reverse arthroplasty of right shoulder: Overall he is doing very well. Is not having much pain in the right shoulder. He will be seen by physical therapy today for ambulation and range of motion exercises. He can be discharged home later today. He will follow with orthopedics in 2 weeks. Fazal Alejandre was seen and examined at bedside this morning. Overall is doing very well. Is not having any pain in the right shoulder. He was able to get some sleep last night. He has no complaints.. Review of Systems All systems reviewed & are unremarkable except as noted in HPI & below. Physical Exam On physical examination of the right shoulder, the dressing is clean and dry. He is wearing his sling as instructed. His radial, median, and ulnar nerves are checked intact his wrist.. Results & Data Results & Data Laboratory Results H & H 05/15/20 06/01/20 Range/Units 15:37 06:42 Hgb 14.5 13.2 L (14.0-18.0) g/dL Hct 42.6 39.3 L (42-52) % Coagulation 05/15/20 Range/Units 15:37 INR 0.9 (0.9-1.1) . Diagnostic Findings Postoperative x-rays of the right shoulder show the prosthesis to be in anatomic alignment without any evidence of fracture, dislocation, or loosening. PG Care Time/CCT Total # of Minutes Spent Total Time Spent with Patient: Total time spent is greater than 50% in coordination of care (as documented) at patient's floor/unit and/or counseling patient: Coding Level of Care Code 30462 Post Operative Follow-Up Diagnoses Status post reverse arthroplasty of right shoulder Z96.611
--- NOTE | 2020-06-01 07:52 | Discharge Summary ---
Date of Service June 01, 2020 Admission HPI (Per Admitting) Hill is a pleasant 70-year-old male who is been having chronic right shoulder pain. He had a rotator cuff repair by Dr. Richard in 2017 in [place]. He has been having pain since. He has pain reaching away from his body or doing anything up overhead. MRI showed a large retracted retear of the rotator cuff. After failing conservative treatment, he elected to proceed with a right reverse shoulder arthroplasty.. Admission Exam (Per Admitting) On physical examination of the right shoulder, he has about 90 degrees of forward elevation 90 degrees of abduction. He has 4 out of 5 motion with full can testing 5 5 motion with external rotation. He has pain in the subacromial space.. Principal Diagnosis Same as "Discharge Diagnosis" noted below under Discharge Instructions. Discharge Exam On physical examination of the right shoulder, the dressing is clean and dry. He is wearing his sling as instructed. His radial, median, and ulnar nerves are checked intact his wrist.. Discharge Data Consultations 05/31/20 14:57 Consult Case Management - Discharge Planning Routine Procedures Performed Operation Date: 05/31/20 12:40 Actual Procedures p Right Reverse Total shoulder Arthroplasty(Right) - Sd Bingham DO Ordered Studies 05/31/20 05:00 US - OR guided needle placemen Routine Hospital Course (1) Status post reverse arthroplasty of right shoulder: On May 31, 2020 Hill arrived at [facility] and underwent a right reverse shoulder arthroplasty without complication. He had a general anesthetic and a right interscalene nerve block. Postoperatively he was placed in a sling and transferred to the general orthopedic floors. His hospital course was uneventful. On postop day #1 his H&H was stable and his pain was well controlled. He was able to participate well with physical therapy doing ambulation and range of motion exercises. He was then discharged home. He will follow-up with orthopedics in 2 weeks. PG Care Time/CCT Total # of Minutes Spent Total Time Spent with Patient: Total time spent is greater than 50% in coordina tion of care (as documented) at patient's floor/unit and/or counseling patient: Discharge Plan Discharge Items Patient Disposition: Home - Home Health Services Reason For Visit: DJD Right Shoulder Discharge Diagnosis: Right reverse shoulder replacement Activity: As commented below Non-emergency contact: Surgeon Call non-emergency contact if: your wound has increased redness and your wound has increased drainage Follow-up/Referrals: Bing Ramos DO [Primary Care Provider] - Diet: Regular Addtl Attending Provider Instructions: Activity and Therapy Recommendations: * If you are using [facility] then therapy will be provided at your home until they feel you have accomplished all of your goals. * If you are using [facility] then Physical Therapy will be provided until they feel you are ready to start Outpatient Physical Therapy. * If you are not using home therapy then Outpatient Physical Therapy should start about 3-5 days from your day of surgery. Therapy will last about 8-12 weeks * Wear your sling for 3 weeks, unless otherwise instructed. You may remove your sling to shower and to dress, but otherwise, you should be in your sling at all times, including while sleeping * The shoulder replacement is very stable and you can use your hand while in the sling * You were shown a series of exercises in the hospital. Do these exercises daily including the exercises you were shown in physical therapy. Medications: * Narcotic You will likely be sent home from the hospital with a prescription f or the narcotic pain medication that worked best throughout your stay. * Other medications may be prescribed for specific circumstances. If you have any questions, please call the office at . * Resume previous home medications unless otherwise instructed Dressing Care: Leave the Silverlon dressing in place for 7 days. After 7 days you may remove the dressing. If the incision is not draining then you may leave the wendie open to air. If there is a little bit of drainage or if the wendie are getting stuck on your clothing then cover the incision with a dry dressing. The wendie will be removed at your 2 week follow-up appointment. Showering: You may shower with the Silverlon dressing in place. Do not let the shower spray hit the dressing directly. Pat the Silverlon dressing dry. If the dressing becomes wet underneath, then simply remove the dressing. Keep the incision dry until you are 7 days out from the day of surgery. After 7 days you may remove the Silverlon dressing and shower with the wendie exposed. Let soapy water run over the wendie and pat them dry. Do not scrub or soak the incision. Things To Watch For: * Drainage from the incision site that occurs more than one week after your surgery. * Increased redness at the incision site. * Fever above 102 degrees Fahrenheit. * Unusual chest pain or shortness of breath. * Call [facility] at with any of the above problems Follow-Up Visit: Follow-up with Dr. Bingham's PA (Sd Palumbo) 2-3 weeks after your day of surgery. He will remove your wendie and answer any questions. If you have any additional questions or concerns, Dr Bingham is usually in the office at the same time and will be available An appointment was probably scheduled when you signed-up for surgery in the office. If you have any questions call More detailed instructions as well as Frequently Asked Questions were provided in a folder by our office when you signed-up for surgery. Please review these instructions when you get home. If you have any further questions or concerns, please feel free to call the office at [phone] Pending Studies at Discharge: No Stand-Alone Forms: My [facility], Smoking Cessation Medications and DC Order Prescriptions: New oxycodone 5 mg Tablet 5 - 10 mg PO Q4H PRN (Reason: pain) Qty: 30 RF: 0 Continued gabapentin 300 mg capsule 300 mg PO HS Qty: 90 RF: 1 (DME) BD PrecisionGlide Non-Sterile 25 gauge x 5/8" needle See Dose Instructions .ROUTE .MEDSUPPLY Qty: 100 RF: 0 cyanocobalamin (vitamin B-12) 1,000 mcg/mL solution 1,000 mcg IM MONTHLY Qty: 10 RF: 1 meloxicam 15 mg tablet 15 mg PO HS Qty: 90 RF: 1 allopurinol 300 mg tablet 300 mg PO HS Qty: 90 RF: 1 tamsulosin 0.4 mg capsule 0.4 mg PO HS Qty: 90 RF: 3 bupropion HCl [Wellbutrin SR] 100 mg tablet sustained-release 12 hr 200 mg PO HS Qty: 180 RF: 1 amlodipine 5 mg tablet 5 mg PO PM Qty: 90 RF: 2 cholecalciferol (vitamin D3) 2,000 unit capsule 2,000 units PO HS RF: 0 Zyrtec 10 mg capsule 10 mg PO DAILY PRN (Reason: Allergy Symptoms) RF: 0 epinephrine 0.3 mg/0.3 mL auto-injector 0.3 mg IM .COMPLEX PRN (Reason: bronchodilation) Qty: 2 RF: 0 amitriptyline 100 mg tablet 50 mg PO PM RF: 0 sumatriptan succinate [Imitrex] 100 mg tablet 100 mg PO .COMPLEX PRN (Reason: migraine headache) Qty: 27 RF: 0 fluticasone propionate [Flonase Allergy Relief] 50 mcg/actuation [place],Suspension 1 - 2 spray INTRANASAL DAILY PRN (Reason: Congestion) RF: 0 ibuprofen 200 mg Tablet 400 mg PO Q6H PRN (Reason: Pain) RF: 0 cyclobenzaprine 5 mg tablet 5 mg PO HS PRN (Reason: muscle spasm) RF: 0 multivitamin Tablet,Chewable 2 tab PO QAM RF: 0 atorvastatin 20 mg tablet 20 mg PO PM RF: 0 omeprazole 40 mg capsule,delayed release(DR/EC) 40 mg PO PM RF: 0 metformin 1,000 mg tablet 2,000 mg PO QAM RF: 0 prednisolone acetate 1 % Drops,Suspension 1 drp OPR TID RF: 0 ketorolac 0.5 % Drops 1 drp OPR QID RF: 0 Refresh Relieva 0.5-0.9 % Drops 1 drp OPB BID RF: 0 sodium chloride eye wash,cup 1 drp OPB BID RF: 0 Discharge Orders: Discharge Order (Routine); Ordered 06/01/20 Ordered By: Sd Bingham Admission Data Admit Date/Time: 05/31/20 13:55 Attending Provider: Sd Bingham Admit Provider: Sd Bingham Primary Care Provider: Bing Ramos
[2020-06-01] MEDS: SODIUM CHLORIDE 5% OP SOLN 15 ML BTL OP SCH (08:38)
[2020-06-01] MEDS: DOCUSATE SODIUM 100 MG CAP PO SCH (08:38)
[2020-06-01] MEDS: KETOROLAC 0.5% OP SOLN 5 ML BTL OPR SCH (08:39)
[2020-06-01] MEDS: prednisoLONE acetate 1% OP SUSP 5 ML BTL OP SCH (08:39)
[2020-06-01] MEDS ORDERED: INSULIN GLARGINE SOLOSTAR 100 UNITS/ML 3 ML PEN SC SCH (09:00)
[2020-06-01] MEDS ORDERED: MULTIVITAMIN TAB PO SCH (09:00)
--- NOTE | 2020-06-01 10:43 | Pharmacy Report ---
Pharmacy Glycemic Short Note 2 - Date of Service June 01, 2020 - Glycemic Short BSG Results (Last 24 hours): 05/31/20 05/31/20 05/31/20 10:55 14:02 17:00 Glucose POC Glucose 141 H 226 H 189 H 05/31/20 06/01/20 06/01/20 20:48 00:01 03:55 Glucose POC Glucose 214 H 188 H 143 H 06/01/20 06/01/20 06:42 08:04 Glucose 134 H POC Glucose 209 H OUTPATIENT ANTIDIABETIC REGIMEN: * Metformin 2000 mg PO AM * HbA1c = 6.6% (05/15/20) ASSESSMENT: * 70 yo M admitted following total shoulder arthroplasty. * Preoperative BSG was 141 mg/dL. Postoperative BSGs were: 189-214-188 mg/dL. * Patient did receive 8 mg of PO Dexamethasone preoperatively yesterday. * Given 30 units of Lantus last evening. * Fasting BSG was 209 mg/dL this morning. * Gave another 30 units of Lantus * Tightened CF/CR. * Appears patient is being discharged today. PLAN FOR INPATIENT GLYCEMIC CONTROL: * Hold outpatient oral diabetes medications * Basal insulin * Lantus 30 units SQ x 2 * Bolus insulin * NovoLog per scale ACHS or Q6hrs while NPO * Goal Range: Low 110 mg/dL - High 140 mg/dL * Correction Factor: 15 mg/dL/unit * Nutritional / Prandial insulin per carb ratio of 1 unit per 4 grams CHO consumed PLAN FOR DISCHARGE: * HbA1c is well controlled. Continue Metformin upon discharge. Recommend taking first dose tomorrow (06/02) since patient received Lantus this morning.
== END 2020-06-01 12:20 | disposition home health service (06) | DRG 483 ==
LOC: ASU 10:34 → 3E 13:55

== ENCOUNTER 2020-06-23 03:10 | Observation (INO) ==
[2020-06-23] MEDS ORDERED: SODIUM CHLORIDE 0.9% 1000ML 1,000 ML IV ONE ×2 (03:23→05:03)
--- NOTE | 2020-06-23 04:05 | Emergency Department Note ---
Impression & Plan Sepsis, Acute UTI (urinary tract infection) ED Provider Note Name: JASMINA ROONEY III Age: 70 Sex: M Arrives Via: Walk-In Informant: Patient, ED Provider: Naveed Mccarthy MD Chief Complaint: Illness Impression: Sepsis UTI Medical Decision Makin yr old male with extensive PMH including DMII, GERD, HLD, Migraines, HTN, Gout amongst others arrives with worsening cough associated weakness fevers, chills, migraine like headache, vague abdominal pain and urinary frequency. Exam he is febrile, tachycardic, dry appearing and unwell. Sepsis work-up ordered and fluids given judiciously monitoring respiratory status. Lungs are a bit junky at bases though CXR no clear infiltrate. Given respiratory complaints may be pna but too dry to see. CT a.p obtained without acute findings. UA ended up returning with evidence of infection and seems this likely source of his sepsis. He did appear much improved with IV fluids. Tylenol no given initially as he took it at home. I did opt to get CT head given his headache. He does not have any meningitis findings on examination and I do not feel that LP indicated at this time. Prior Medical Record and Triage/Nursing Notes reviewed by Me Additional history obtained from chart Differentials:Viral syndrome, otitis, pharyngitis, pneumonia, influenza, meningitis, urinary tract infection, sepsis, bacteremia, as well as other pathologies. amongst other pathologies. Vital Signs: reviewed and remarkable for fever, tachy Interventions: saline lock, nss bolus 2.5L total, Zosyn IV, Vanco IV Given the patients BMI >30, IBW was used to calculate the 30ml/kg fluid bolus. Labs:Reviewed and remarkable for elevated wbc Imaging:X ray results are stated below per my interpretation: Chest: 1 view: No infiltrate, no effusion, normal cardiac border. [facility] Radiologist interpretation reviewed by me: CT a/p wo con no acute findings. CT head no acute findings EKG:Per My Interpretation: Indication : Sinus tach 118 bpm, qtc 414. No Ectopy. No Ischemia. Compared to EKG 03/01/19, no significant changes. Cardiac/Tele Monitoring: Cardiac Monitoring: An Order was placed for continuous cardiac monitoring. The monitor shows a rate of 110 with a sinus tach rhythm. Consults:Dr Zach DUARTE Hospitalist Plan: Disposition:Hospitalization. Condition: Good History of Present Illness:70 yr old male arrives for evaluation of weakness. Patient with 48 hrs of fatigue, fevers, chills, and weakness. Notes too weak to stand earlier. Associated with mild lower abdominal pain and increased urinary frequency. Also notes he had a headache earlier though that has improvement. For the last week he notes a week of mild dry cough. Denies shortness of breath, chest pain, syncope, nausea, vomiting, leg swelling, calf pain, back pain, rashes, diarrhea, nor other symptoms. No falls nor trauma. Used tylenol prior to arrival with mild improvement. Covid 2nd vaccine 2 weeks ago. ROS: See above HPI for pertinent positives & negatives. A total of 10 systems reviewed and were otherwise negative. Past Medical History:See Below Past Surgical History:See Below Family History:See Below Social History:See Below Home Medications:See Below Allergies:See Below Vitals:Blood Pressure: 159/79, Pulse 122, RR 18, T 36.8C, O2 95% on RA Physical Exam: GENERAL: Patient is ill appearing and in moderate distress. Dehydrated appearing EYES: No scleral icterus, unremarkable pupils. ENT: Mucous membranes dry, no nasal congestion. NECK: No masses appreciated, nomeningismus, trachea is midline. RESPIRATORY: Mild cough and appears slightly shob, crackles bilateral lower lobes, no wheeze CARDIOVASCULAR: Tachy.No murmurs, rubs, gallops appreciated. GASTROINTESTINAL: Abdomen soft, non-tender, no peritonitis.Bowel sounds positive.No masses appreciated. BACK: No midline tenderness, no CVA tenderness EXTREMITIES: Normal motion all extremities, no cyanosis, no edema. NEUROLOGIC: Alert and oriented, no acute motor or sensory deficits, no focal weakness, cranial nerves grossly intact. SKIN: No rash, no jaundice, no diaphoresis. PSYCH: Appropriate GCS: 15 ED Course: Times/Reassessments: Multiple, gradually improving with IV fluids Naveed Mccarthy MD Past Med/Surg History Medical History (Updated 06/23/20 @ 07:14 by Naveed Mccarthy MD) Allergic rhinitis, cause unspecified BPH loc w urin obs/LUTS Depressive disorder, not elsewhere classified Diabetes NIDDM Generalized osteoarthritis GERD without esophagitis Gouty arthropathy, unspecified History of diverticulitis of colon s/p hemicolectomy (1984) Hyperlipidemia Hypertension Idiopathic polyneuropathy Lumbar stenosis Nephrolithiasis passed without intervention Neurogenic claudication due to lumbar spinal stenosis Obesity, unspecified Periodic limb movement disorder 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 Surgical History (Updated 05/31/20 @ 13:55 by Sd Bingham DO) 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) History of appendectomy History of arthroplasty of left knee (2009) History of arthroscopic knee surgery (2002) R knee, ACL repair History of arthroscopic surgery of elbow Left History of carpal tunnel surgery R/L History of cataract surgery R/L History of colonoscopy multiple History of gastric bypass (1994) History of partial colectomy (1984) secondary to diverticulitis History of total right hip arthroplasty Hx of lumbosacral spine surgery L4-S1 decompression/fusion (03/17/19): Grade view 1, MAC#3, ETT 8.0 at [facility] Nausea and vomiting after administration of anesthetic agent S/P arthroscopy of shoulder (1999) Right S/P cervical spinal fusion (2010) C2-5 (ROM WNL per patient) S/P rotator cuff repair (2000) Right S/P tonsillectomy Status post reverse arthroplasty of right shoulder (~05/2020) Family History Father Family history of diabetes mellitus Kidney stones Denies family history of Ovarian cancer Prostate cancer Myocardial infarction Breast cancer Colorectal cancer Social History Smoking Status: Former smoker packs per day: 3; Second Hand Exposure: No; Hx Alcohol Use: No Hx Substance Use: No Preferred Language: Fijian Communication Ability: Effective Visual Impairment: Limited Hearing Ability: Normal Java Scala Developer Required: No Beliefs That Will Affect Care: None marital status: Current Living Situation: Spouse current occupational status: retired current occupation: Retired from [employer]. Feels Safe at Home: Yes Childhood Exposure to Second-Hand Smoke: Yes caffeine: Yes (Coffee x 2 per day. ) during the past year weight has: remained stable Dental Care, Regularly: Yes Physical Activity Frequency: Daily Seatbelt Use: always Sunscreen Use: Yes Assistive Devices: None Allergies Allergies Allergy/AdvReac Type Severity Reaction Status Date / Time imipenem Allergy Severe Hives, Verified 06/23/20 04:12 dyspnea (tolerates Cefazolin) latex Allergy Severe Dyspnea Verified 06/23/20 04:12 Sulfa (Sulfonamide Allergy Severe Dyspnea Verified 06/23/20 04:12 Antibiotics) adhesive tape Allergy Unknown Rash Verified 06/23/20 04:12 iodine Allergy Unknown Dyspnea Verified 06/23/20 04:12 with contrast dyes (tolerates topical use) moxifloxacin Allergy Unknown Respiratory Verified 06/23/20 04:12 distress, hives shrimp Allergy Unknown Dyspnea Verified 06/23/20 04:12 mustard Allergy Unknown Verified 06/23/20 04:12 shellfish derived Allergy Unknown Verified 06/23/20 04:12 watermelon Allergy Unknown Verified 06/23/20 04:12 Primaxin SOLR Allergy Unknown Dyspnea Uncoded 06/23/20 04:12 Home Meds Home Medications Medication Instructions Recorded Confirmed cholecalciferol (vitamin D3) 50 2,000 units PO HS cap 11/11/18 06/23/20 mcg (2,000 unit) capsule ibuprofen 400 mg PO Q6H PRN 02/22/19 06/23/20 cyclobenzaprine 5 mg tablet 5 mg PO HS PRN tab 03/16/19 06/23/20 amitriptyline 100 mg tablet 100 mg PO PM tab 03/18/20 06/23/20 atorvastatin 20 mg PO PM 05/13/20 06/23/20 metformin 2,000 mg PO QAM 05/13/20 06/23/20 omeprazole 40 mg PO PM 05/13/20 06/23/20 Refresh Relieva 1 drp OPB BID 05/31/20 06/23/20 ketorolac 1 drp OPR QID 05/31/20 06/23/20 prednisolone acetate 1 drp OPR TID 05/31/20 06/23/20 sodium chloride eye wash,cup 1 drp OPB BID 05/31/20 06/23/20 multivitamin 1 tab PO DAILY 06/23/20 06/23/20 Previous Rx's Medication Instructions Recorded gabapentin 300 mg capsule 300 mg PO HS #90 cap 09/28/19 needle (disp) 25 gauge 25 gauge x #100 ea 10/05/19 5/8" epinephrine 0.3 mg/0.3 mL 0.3 mg IM .COMPLEX PRN #2 ea 11/07/19 injection, auto-injector cyanocobalamin (vitamin B-12) 1,000 mcg IM MONTHLY #10 ml 02/15/20 1,000 mcg/mL injection solution meloxicam 15 mg tablet 15 mg PO HS #90 tab 03/20/20 allopurinol 300 mg tablet 300 mg PO HS #90 tab 04/22/20 sumatriptan succinate 100 mg tablet 100 mg PO .COMPLEX PRN #27 tab 05/13/20 tamsulosin 0.4 mg capsule 0.4 mg PO HS #90 cap 05/13/20 bupropion HCl 100 mg tablet,12 hr 200 mg PO HS #180 ea 05/15/20 sustained-release amlodipine 5 mg tablet 5 mg PO PM #90 tab 05/21/20 oxycodone 5 - 10 mg PO Q4H PRN #30 tab 06/01/20 Results & Data (ED) Vital Signs Vital Signs - 24 hr 06/23/20 03:11 06/23/20 03:14 06/23/20 05:11 Temperature 36.8 C 38 C H Temperature Source Temporal Artery Scan Oral Pulse Rate 122 H Respiratory Rate 18 Respiratory Effort / Characteristics Non-Labored Spontaneous Respiratory Depth Normal Blood Pressure 159/79 H Blood Pressure Mean 105 Pulse Oximetry 95 Oxygen Delivery Method Room Air Room Air Sepsis Recent Fever Within 48 Hours Yes Sepsis New/Unexplained Change in Mental Status Yes Sepsis Action Taken by Nursing Physician Notified Laboratory Data Result diagrams: 06/23/20 04:03 06/23/20 04:03 Lab Results 06/23/20 06/23/20 06/23/20 Range/Units 03:38 04:03 04:03 WBC 17.13 H (4.8-10.8) K/uL RBC 4.37 L (4.7-6.1) M/uL Hgb 13.4 L (14.0-18.0) g/dL Hct 39.9 L (42-52) % MCV 91.3 (80-100) fL MCH 30.7 (25-34) pg MCHC 33.6 (32-36) g/dL RDW Std Deviation 45.5 (36.4-46.3) fL RDW Coeff of Adan 13.8 (11.5-14.5) % Plt Count 322 (130-400) K/uL MPV 9.6 (7.4-10.4) fL Immature Gran % (Auto) 0.5 % Neut % (Auto) 77.8 % Lymph % (Auto) 9.1 % Elk % (Auto) 11.9 % Eos % (Auto) 0.6 % Baso % (Auto) 0.1 % Neut # (Auto) 13.34 H (1.4-6.5) K/uL Lymph # (Auto) 1.56 (1.2-3.4) K/uL Elk # (Auto) 2.03 H (0.11-0.59) K/uL Eos # (Auto) 0.10 (0-0.5) K/uL Baso # (Auto) 0.02 (0-0.2) K/uL Immature Gran # (Auto) 0.08 H (0.00-0.02) K/uL PT (9.0-12.0) Seconds INR (0.9-1.1) Sodium (136-145) mmol/L Potassium (3.5-5.1) mmol/L Chloride (98-107) mmol/L Carbon Dioxide (21-32) mmol/L Anion Gap (3-11) BUN (7-18) mg/dl Creatinine (0.6-1.4) mg/dl Est Cr Clr Drug Dosing Est GFR ( Amer) Est GFR (Non-Af Amer) BUN/Creatinine Ratio (10-20) Glucose (70-99) mg/dl POC Glucose 208 H (70-99) mg/dl Lactate 1.8 (0.4-2.0) mmol/L Calcium (8.5-10.1) mg/dl Magnesium (1.8-2.4) mg/dl Total Bilirubin (0.2-1) mg/dl Direct Bilirubin (0-0.2) mg/dl AST (15-37) U/L ALT (12-78) U/L Alkaline Phosphatase (45-117) U/L Troponin I (0-0.045) ng/ml Total Protein (6.4-8.2) gm/dl Albumin (3.4-5.0) gm/dl Lipase (73-393) U/L Procalcitonin (0-0.5) ng/ml Urine Color Urine Appearance (Clear) Urine pH (4.5-7.5) Ur Specific [place] (1.000-1.030) Urine Protein (Negative) Urine Glucose (UA) (Negative) Urine Ketones (Negative) Urine Blood (Negative) Urine Nitrite (Negative) Urine Bilirubin (Negative) Urine Urobilinogen (Negative) Ur Leukocyte Esterase (Negative) Urine WBC (Auto) (0-5) /hpf Urine RBC (Auto) (0-4) /hpf U Hyaline Cast (Auto) (0-5) /lpf U Epithel Cells (Auto) (0-5) /lpf Urine Bacteria (Auto) (Negative) Ur Renal Epithelial Cell COVID-19 Eval Order SARS-CoV-2 (PCR) (Negative) Influenza Type A (PCR) (Neg) Influenza Type B (PCR) (Neg) RSV (RT-PCR) (Neg) 06/23/20 06/23/20 06/23/20 Range/Units 04:03 04:03 04:03 WBC (4.8-10.8) K/uL RBC (4.7-6.1) M/uL Hgb (14.0-18.0) g/dL Hct (42-52) % MCV (80-100) fL MCH (25-34) pg MCHC (32-36) g/dL RDW Std Deviation (36.4-46.3) fL RDW Coeff of Adan (11.5-14.5) % Plt Count (130-400) K/uL MPV (7.4-10.4) fL Immature Gran % (Auto) % Neut % (Auto) % Lymph % (Auto) % [place] % (Auto) % Eos % (Auto) % Baso % (Auto) % Neut # (Auto) (1.4-6.5) K/uL Lymph # (Auto) (1.2-3.4) K/uL [place]k # (Auto) (0.11-0.59) K/uL Eos # (Auto) (0-0.5) K/uL Baso # (Auto) (0-0.2) K/uL Immature Gran # (Auto) (0.00-0.02) K/uL PT 10.4 (9.0-12.0) Seconds INR 1.0 (0.9-1.1) Sodium 134 L (136-145) mmol/L Potassium 4.0 (3.5-5.1) mmol/L Chloride 101 (98-107) mmol/L Carbon Dioxide 26 (21-32) mmol/L Anion Gap 7.0 (3-11) BUN 19 H (7-18) mg/dl Creatinine 1.11 (0.6-1.4) mg/dl Est Cr Clr Drug Dosing Not Reportable Est GFR ( Amer) 78.7 Est GFR (Non-Af Amer) 67.9 BUN/Creatinine Ratio 17.1 (10-20) Glucose 190 H (70-99) mg/dl POC Glucose (70-99) mg/dl Lactate (0.4-2.0) mmol/L Calcium 8.7 (8.5-10.1) mg/dl Magnesium 1.9 (1.8-2.4) mg/dl Total Bilirubin 0.9 (0.2-1) mg/dl Direct Bilirubin 0.3 H (0-0.2) mg/dl AST 14 L (15-37) U/L ALT 31 (12-78) U/L Alkaline Phosphatase 141 H (45-117) U/L Troponin I < 0.015 (0-0.045) ng/ml Total Protein 7.6 (6.4-8.2) gm/dl Albumin 3.6 (3.4-5.0) gm/dl Lipase 71 L (73-393) U/L Procalcitonin 0.23 (0-0.5) ng/ml Urine Color Urine Appearance (Clear) Urine pH (4.5-7.5) Ur Specific [place] (1.000-1.030) Urine Protein (Negative) Urine Glucose (UA) (Negative) Urine Ketones (Negative) Urine Blood (Negative) Urine Nitrite (Negative) Urine Bilirubin (Negative) Urine Urobilinogen (Negative) Ur Leukocyte Esterase (Negative) Urine WBC (Auto) (0-5) /hpf Urine RBC (Auto) (0-4) /hpf U Hyaline Cast (Auto) (0-5) /lpf U Epithel Cells (Auto) (0-5) /lpf Urine Bacteria (Auto) (Negative) Ur Renal Epithelial Cell COVID-19 Eval Order SARS-CoV-2 (PCR) (Negative) Influenza Type A (PCR) (Neg) Influenza Type B (PCR) (Neg) RSV (RT-PCR) (Neg) 06/23/20 06/23/20 06/23/20 Range/Units 04:28 04:28 06:00 WBC (4.8-10.8) K/uL RBC (4.7-6.1) M/uL Hgb (14.0-18.0) g/dL Hct (42-52) % MCV (80-100) fL MCH (25-34) pg MCHC (32-36) g/dL RDW Std Deviation (36.4-46.3) fL RDW Coeff of [place]an (11.5-14.5) % Plt Count (130-400) K/uL MPV (7.4-10.4) fL Immature Gran % (Auto) % Neut % (Auto) % Lymph % (Auto) % [place] % (Auto) % Eos % (Auto) % Baso % (Auto) % Neut # (Auto) (1.4-6.5) K/uL Lymph # (Auto) (1.2-3.4) K/uL [place] # (Auto) (0.11-0.59) K/uL Eos # (Auto) (0-0.5) K/uL Baso # (Auto) (0-0.2) K/uL Immature Gran # (Auto) (0.00-0.02) K/uL PT (9.0-12.0) Seconds INR (0.9-1.1) Sodium (136-145) mmol/L Potassium (3.5-5.1) mmol/L Chloride (98-107) mmol/L Carbon Dioxide (21-32) mmol/L Anion Gap (3-11) BUN (7-18) mg/dl Creatinine (0.6-1.4) mg/dl Est Cr Clr Drug Dosing Est GFR ( Amer) Est GFR (Non-Af Amer) BUN/Creatinine Ratio (10-20) Glucose (70-99) mg/dl POC Glucose (70-99) mg/dl Lactate (0.4-2.0) mmol/L Calcium (8.5-10.1) mg/dl Magnesium (1.8-2.4) mg/dl Total Bilirubin (0.2-1) mg/dl Direct Bilirubin (0-0.2) mg/dl AST (15-37) U/L ALT (12-78) U/L Alkaline Phosphatase (45-117) U/L Troponin I (0-0.045) ng/ml Total Protein (6.4-8.2) gm/dl Albumin (3.4-5.0) gm/dl Lipase (73-393) U/L Procalcitonin (0-0.5) ng/ml Urine Color Yellow Urine Appearance Clear (Clear) Urine pH 5.5 (4.5-7.5) Ur Specific [place] 1.016 (1.000-1.030) Urine Protein 2+ H (Negative) Urine Glucose (UA) Negative (Negative) Urine Ketones Negative (Negative) Urine Blood Trace H (Negative) Urine Nitrite Negative (Negative) Urine Bilirubin Negative (Negative) Urine Urobilinogen Negative (Negative) Ur Leukocyte Esterase Trace H (Negative) Urine WBC (Auto) 10-30 H (0-5) /hpf Urine RBC (Auto) 0-4 (0-4) /hpf U Hyaline Cast (Auto) >30 H (0-5) /lpf U Epithel Cells (Auto) >30 H (0-5) /lpf Urine Bacteria (Auto) 4+ H (Negative) Ur Renal Epithelial Cell Not Reportable COVID-19 Eval Order CovFluRsv at [facility] SARS-CoV-2 (PCR) NEGATIVE (Negative) Influenza Type A (PCR) Negative (Neg) Influenza Type B (PCR) Negative (Neg) RSV (RT-PCR) Negative (Neg) Administered Medications Allopurinol (Allopurinol 300 Mg Tab) 300 mg PO HS SHIRA Stop: 07/23/20 20:59 Last Admin: 06/23/20 20:40 Dose: 300 mg Documented by: [id number] Amitriptyline HCl (Amitriptyline Hcl 100 Mg Tab) 100 mg PO PM SHIRA Stop: 07/23/20 20:59 Last Admin: 06/23/20 20:41 Dose: 100 mg Documented by: [id number] Amlodipine Besylate (Amlodipine Besylate 5 Mg Tab) 5 mg PO PM SHIRA Stop: 07/23/20 20:59 Last Admin: 06/23/20 20:40 Dose: 5 mg Documented by: [id number] Artificial Tears (Artificial Tears) 1 drops OP BID SHIRA Stop: 07/23/20 09:06 Last Admin: 06/23/20 22:09 Dose: 1 drops Documented by: [id number] Admin: 06/23/20 10:41 Dose: 1 drops Documented by: [id number] Atorvastatin Calcium (Atorvastatin 20 Mg Tab) 20 mg PO PM SHIRA Stop: 07/23/20 20:59 Last Admin: 06/23/20 20:42 Dose: 20 mg Documented by: [id number] Bupropion HCl (Bupropion Sr 100 Mg Tabcr) 200 mg PO HS SHIRA Stop: 07/23/20 20:59 Last Admin: 06/23/20 20:40 Dose: 200 mg Documented by: [id number] Enoxaparin Sodium (Enoxaparin Inj 40 Mg/0.4 Ml Syr) 40 mg SQ Q24H SHIRA Stop: 07/23/20 09:29 Last Admin: 06/23/20 10:42 Dose: 40 mg Documented by: [id number] Gabapentin (Gabapentin 300 Mg Cap) 300 mg PO HS SHIRA Stop: 07/23/20 20:59 Last Admin: 06/23/20 20:41 Dose: 300 mg Documented by: [id number] Sodium Chloride (Nss 1000ml) 1,000 mls @ 125 mls/hr IV .Q8H SHIRA Stop: 06/24/20 01:06 Last Admin: 06/23/20 18:32 Dose: 125 mls/hr Documented by: [id number] Infusion: 06/23/20 18:32 Dose: 125 mls/hr Documented by: [id number] Admin: 06/23/20 10:40 Dose: 125 mls/hr Documented by: [id number] Piperacillin Sod/Tazobactam (Sod 4.5 gm/ Dextrose) 120 mls @ 30 mls/hr IV Q8H SHIRA; Protocol Stop: 06/25/20 09:59 Last Infusion: 06/23/20 23:52 Dose: 0 mls/hr Documented by: [id number] Admin: 06/23/20 18:32 Dose: 30 mls/hr Documented by: [id number] Infusion: 06/23/20 15:25 Dose: 0 mls/hr Documented by: [id number] Admin: 06/23/20 10:40 Dose: 30 mls/hr Documented by: [id number] Vancomycin HCl 1,500 mg/ (Sodium Chloride) 530 mls @ 200 mls/hr IV Q12H SHIRA; Protocol Stop: 06/25/20 21:59 Last Admin: 06/23/20 22:24 Dose: 200 mls/hr Documented by: [id number] Ibuprofen (Ibuprofen 200 Mg Tab) 400 mg PO Q6H PRN PRN Reason: Pain or Fever Stop: 07/23/20 09:06 Last Admin: 06/23/20 10:56 Dose: 400 mg Documented by: [id number] Insulin Aspart (Insulin Aspart 100 Units/Ml 3 Ml Pen) 0 units SC ACHS [facility] Stop: 07/23/20 09:29 Last Admin: 06/23/20 20:44 Dose: Not Given Documented by: [id number] Admin: 06/23/20 17:03 Dose: 2 units Documented by: [id number] Cosigned by: [id number] Admin: 06/23/20 12:21 Dose: 2 units Documented by: [id number] Cosigned by: [id number] Admin: 06/23/20 10:43 Dose: 4 units Documented by: [id number] Cosigned by: [id number] Insulin Glargine (Insulin Glargine Solostar 100 Units/Ml 3 Ml Pen) 10 units SC BID [facility] Stop: 07/23/20 09:06 Last Admin: 06/23/20 20:44 Dose: 10 units Documented by: [id number] Cosigned by: [id number] Admin: 06/23/20 10:43 Dose: 10 units Documented by: [id number] Cosigned by: [id number] Ketorolac Tromethamine (Ketorolac 0.5% Op Soln 5 Ml Btl) 1 drops OPR QID [facility] Stop: 07/23/20 09:06 Last Admin: 06/23/20 22:08 Dose: 1 drops Documented by: [id number] Admin: 06/23/20 17:04 Dose: 1 drops Documented by: [id number] Admin: 06/23/20 12:22 Dose: 1 drops Documented by: [id number] Admin: 06/23/20 10:41 Dose: 1 drops Documented by: [id number] Meloxicam (Meloxicam 7.5 Mg Tab) 15 mg PO HS [facility] Stop: 07/23/20 20:59 Last Admin: 06/23/20 20:41 Dose: 15 mg Documented by: [id number] Pantoprazole Sodium (Pantoprazole 40 Mg Tab) 40 mg PO PM [facility] Stop: 07/23/20 20:59 Last Admin: 06/23/20 20:41 Dose: 40 mg Documented by: [id number] Prednisolone Acetate (Prednisolone Acetate 1% Op Susp 5 Ml Btl) 1 drops OP TID SHIRA Stop: 07/23/20 13:59 Last Admin: 06/23/20 20:45 Dose: 1 drops Documented by: [id number] Admin: 06/23/20 12:22 Dose: 1 drops Documented by: [id number] Tamsulosin HCl (Tamsulosin Hcl 0.4 Mg Cap) 0.4 mg PO HS [facility] Stop: 07/23/20 20:59 Last Admin: 06/23/20 20:42 Dose: 0.4 mg Documented by: [id number] Discontinued Medications Sodium Chloride (Nss 1000ml) 1,000 mls @ 999 mls/hr IV .Q1H1M ONE Stop: 06/23/20 04:23 Last Infusion: 06/23/20 05:05 Dose: 0 mls/hr Documented by: [id number] Admin: 06/23/20 04:01 Dose: 999 mls/hr Documented by: [id number] Sodium Chloride (Nss 1000ml) 1,000 mls @ 999 mls/hr IV .Q1H1M ONE Stop: 06/23/20 06:03 Last Infusion: 06/23/20 06:20 Dose: 0 mls/hr Documented by: [id number] Admin: 06/23/20 05:19 Dose: 999 mls/hr Documented by: [id number] Piperacillin Sod/Tazobactam Sod (Zosyn) 4.5 gm in 120 mls @ 240 mls/hr IV NOW ONE Stop: 06/23/20 05:32 Last Infusion: 06/23/20 06:21 Dose: 0 mls/hr Documented by: [id number] Admin: 06/23/20 05:11 Dose: 240 mls/hr Documented by: [id number] Vancomycin HCl 1,750 mg/ (Sodium Chloride) 535 mls @ 200 mls/hr IV NOW ONE Stop: 06/23/20 08:08 Last Infusion: 06/23/20 10:42 Dose: 0 mls/hr Documented by: [id number] Admin: 06/23/20 07:36 Dose: 200 mls/hr Documented by: [id number] Sodium Chloride (Nss 1000ml) 500 mls @ 999 mls/hr IV .Q31M ONE Stop: 06/23/20 06:10 Last Infusion: 06/23/20 07:54 Dose: 0 mls/hr Documented by: [id number] Admin: 06/23/20 06:21 Dose: 999 mls/hr Documented by: [id number] Vancomycin HCl 1,000 mg/ (Sodium Chloride) 270 mls @ 200 mls/hr IV NOW STA Stop: 06/23/20 11:12 Last Infusion: 06/23/20 12:28 Dose: 0 mls/hr Documented by: [id number] Admin: 06/23/20 10:41 Dose: 200 mls/hr Documented by: [id number] Discharge Plan Visit Data Chief Complaint: Weakness Stated Complaint: FEVER,CONFUSION,WEAKNESS ED Provider: Naveed Mccarthy Discharge Problem: Sepsis, Acute UTI (urinary tract infection) Patient Disposition: Admitted As Inpatient Discharge Instructions Interventions: ED Discharge Assessment Last Done: 06/23/20 07:55 Discharge Problem: Sepsis Qualifiers: Sepsis type: sepsis due to unspecified organism Sepsis acute organ dysfunction status: unspecified Qualified Code(s): A41.9 - Sepsis, unspecified organism
[2020-06-23 04:22] LABS: Basophils # (auto) 0.02 K/uL (0-0.2); Basophils % (auto) 0.1 %; Eosinophils % (auto) 0.6 %; Hematocrit (blood only) 39.9 % (42-52); Hemoglobin 13.4 g/dL (14.0-18.0); Immature Granulocytes # (auto) 0.08 K/uL (0.00-0.02); Immature Granulocytes % (auto) 0.5 %; Lymphocytes # (auto) 1.56 K/uL (1.2-3.4); Lymphocytes % (auto) 9.1 %; Mean Corpuscular Hemoglobin 30.7 pg (25-34); Mean Corpuscular Hgb Conc 33.6 g/dL (32-36); Mean Corpuscular Volume 91.3 fL (80-100); Mean Platelet Volume 9.6 fL (7.4-10.4); Monocytes # (auto) 2.03 K/uL (0.11-0.59); Monocytes % (auto) 11.9 %; Neutrophils # (auto) 13.34 K/uL (1.4-6.5); Neutrophils % (auto) 77.8 %; Platelet Count 322 K/uL (130-400); RDW Coefficient of Variation 13.8 % (11.5-14.5); RDW Standard Deviation 45.5 fL (36.4-46.3); Red Blood Count 4.37 M/uL (4.7-6.1); White Blood Count 17.13 K/uL (4.8-10.8)
[2020-06-23 04:31] LABS: Prothrombin Time 10.4 Seconds (9.0-12.0)
[2020-06-23 04:33] LABS: Alanine Aminotransferase 31 U/L (12-78); Albumin Level 3.6 gm/dl (3.4-5.0); Aspartate Aminotransferase 14 U/L (15-37); BUN Creatinine Ratio 17.1 (10-20); Bilirubin Direct 0.3 mg/dl (0-0.2); Blood Urea Nitrogen 19 mg/dl (7-18); Calcium 8.7 mg/dl (8.5-10.1); Carbon Dioxide 26 mmol/L (21-32); Chloride 101 mmol/L (98-107); Est GFR (African American) 78.7; Est GFR (Non-African American) 67.9; Glucose 190 mg/dl (70-99); Lipase 71 U/L (73-393); Magnesium 1.9 mg/dl (1.8-2.4); Sodium 134 mmol/L (136-145)
[2020-06-23 04:38] LABS: Alkaline Phosphatase 141 U/L (45-117); Bilirubin,Total 0.9 mg/dl (0.2-1); Total Protein 7.6 gm/dl (6.4-8.2); Troponin I < 0.015 ng/ml (0-0.045)
[2020-06-23] MEDS ORDERED: PIPERACILL/TAZOBAC CONSULT ACTIVE PRN ×2 (05:03→09:07)
[2020-06-23] MEDS ORDERED: PIPERACILLIN/TAZOBACTAM 4.5 GM/120 ML BAG IV ONE (05:03)
[2020-06-23 05:31] LABS: Influenza A virus by PCR Negative (Neg); Influenza B virus by PCR Negative (Neg); RSV by PCR Negative (Neg); SARS CoV2 RNA(COVID-19) InHosp NEGATIVE (Negative)
[2020-06-23] MEDS ORDERED: VANCOMYCIN HCL 1,750 MG in SODIUM CHLORIDE 0.9% 500 ML IV ONE (05:39)
[2020-06-23] MEDS ORDERED: VANCOMYCIN CONSULT ACTIVE PRN ×2 (05:39→09:07)
[2020-06-23] MEDS ORDERED: SODIUM CHLORIDE 0.9% 1000ML 500 ML IV ONE (05:40)
[2020-06-23 06:33] LABS: Appearance Urine Clear (Clear); Bacteria Urine Automated 4+ (Negative); Bilirubin Urine Negative (Negative); Blood Urine Trace (Negative); Color Urine Yellow; Epithelial Cell Urine Auto >30 /lpf (0-5); Glucose Urine UA Negative (Negative); Ketones Urine Negative (Negative); Leukocyte Esterase Urine Trace (Negative); Nitrite Urine Negative (Negative); Protein Urine 2+ (Negative); RBC Urine Automated 0-4 /hpf (0-4); Specific Gravity Urine 1.016 (1.000-1.030); Urobilinogen Urine Negative (Negative); pH Urine 5.5 (4.5-7.5)
[2020-06-23 06:38] LABS: Cast Urine Automated >30 /lpf (0-5)
--- NOTE | 2020-06-23 06:54 | History & Physical Report ---
Date of Service June 23, 2020 Assessment & Plan (1) Sepsis: Febrile, tachycardic, leukocytosis. Unclear source of infection. Negative for influenza, RSV and Covid. Lungs CTA, Abdominal CT unremarkable. UA pending -some concern for developing pyelonephritis - patient with CVA tenderness, h/o BPH -Follow cultures -Empiric vancomycin and zosyn -continue IVF - NSS x 2 liters -Check RUQUS -Check Xray right shoulder - doubtful source of infection as no pain, wound is clear -Tylenol PRN fever Present on Admission?: Yes (2) GERD without esophagitis: Chronic. Stable -Continue Omeprazole (3) BPH loc w urin obs/LUTS: Chronic -Monitor UOP -Straight cath as needed -Continue FLomax Present on Admission?: Yes (4) Hyperlipidemia: Chronic. Stable -Continue Atorvastatin Present on Admission?: Yes (5) Hypertension: Chronic. Elevated currently -Continue Amlodipine 5mg po daily -Monitor Present on Admission?: Yes (6) Diabetes: Chronic. Elevated blood glucose of 190 today -Lantus 10u BID -ISS -Goal BS 100 - 140 -Hold Metformin Present on Admission?: Yes (7) Gouty arthropathy, unspecified: Chronic. Stable without flare -Continue Allopurinol Present on Admission?: Yes (8) Migrainous headache without aura: Chronic -Contineu Elavil 100mg po qPM F/E/N - NSS at 125mL/hr x 2, monitor electrolytes and replete as needed, CC/AHA diet as tolerated Ppx - Lovenox Code- Full Dispo - Admit to medical with telemetry Present on Admission?: Yes History of Present Illness Chief Complaint: weakness Primary Care Provider: DO Hill Angel is a 70yo C male presenting with fever/chills as well as dry cough and ongoing headache. Patient reports symptoms began yesterday with a dry cough - fever to 103 and headache. He also reports dizziness and some confusion. He fell out of bed earlier today going to the bathroom and was unable to get himself off the floor due to profound weakness. He reports increased urinary frequency last week as well as urgency. He had dysuria today. Patient denies visual changes, abdominal pain, nausea, vomiting, diarrhea or constipation. Denies rashes, joint pain or swelling Patient had a shoulder replacement performed [address] Bingham. Surgery went well with no complications. He states he has very minimal pain at the site. Wound is healing well with no drainage, erythema or dehiscence. No travel. No sick contacts. Patient has received both doses of Covid-19 vaccine. ER Course: Vancomycin, Zosyn, NSS x 2L Allergies Allergy/AdvReac Type Severity Reaction Status Date / Time imipenem Allergy Severe Hives, Verified 06/23/20 04:12 dyspnea (tolerates Cefazolin) latex Allergy Severe Dyspnea Verified 06/23/20 04:12 Sulfa (Sulfonamide Allergy Severe Dyspnea Verified 06/23/20 04:12 Antibiotics) adhesive tape Allergy Unknown Rash Verified 06/23/20 04:12 iodine Allergy Unknown Dyspnea Verified 06/23/20 04:12 with contrast dyes (tolerates topical use) moxifloxacin Allergy Unknown Respiratory Verified 06/23/20 04:12 distress, hives shrimp Allergy Unknown Dyspnea Verified 06/23/20 04:12 mustard Allergy Unknown Verified 06/23/20 04:12 shellfish derived Allergy Unknown Verified 06/23/20 04:12 watermelon Allergy Unknown Verified 06/23/20 04:12 Primaxin SOLR Allergy Unknown Dyspnea Uncoded 06/23/20 04:12 Home Medications Medication Instructions Recorded Confirmed Type cholecalciferol (vitamin D3) 50 2,000 units PO HS cap 11/11/18 06/23/20 History mcg (2,000 unit) capsule ibuprofen 400 mg PO Q6H PRN 02/22/19 06/23/20 History cyclobenzaprine 5 mg tablet 5 mg PO HS PRN tab 03/16/19 06/23/20 History gabapentin 300 mg capsule 300 mg PO HS #90 cap 09/28/19 06/23/20 Rx needle (disp) 25 gauge 25 gauge x #100 ea 10/05/19 06/13/20 Rx 5/8" epinephrine 0.3 mg/0.3 mL 0.3 mg IM .COMPLEX PRN #2 ea 11/07/19 06/23/20 Rx injection, auto-injector cyanocobalamin (vitamin B-12) 1,000 mcg IM MONTHLY #10 ml 02/15/20 06/23/20 Rx 1,000 mcg/mL injection solution amitriptyline 100 mg tablet 100 mg PO PM tab 03/18/20 06/23/20 History meloxicam 15 mg tablet 15 mg PO HS #90 tab 03/20/20 06/23/20 Rx allopurinol 300 mg tablet 300 mg PO HS #90 tab 04/22/20 06/23/20 Rx atorvastatin 20 mg PO PM 05/13/20 06/23/20 History metformin 2,000 mg PO QAM 05/13/20 06/23/20 History omeprazole 40 mg PO PM 05/13/20 06/23/20 History sumatriptan succinate 100 mg tablet 100 mg PO .COMPLEX PRN #27 tab 05/13/20 06/23/20 Rx tamsulosin 0.4 mg capsule 0.4 mg PO HS #90 cap 05/13/20 06/23/20 Rx bupropion HCl 100 mg tablet,12 hr 200 mg PO HS #180 ea 05/15/20 06/23/20 Rx sustained-release amlodipine 5 mg tablet 5 mg PO PM #90 tab 05/21/20 06/23/20 Rx Refresh Relieva 1 drp OPB BID 05/31/20 06/23/20 History ketorolac 1 drp OPR QID 05/31/20 06/23/20 History prednisolone acetate 1 drp OPR TID 05/31/20 06/23/20 History sodium chloride eye wash,cup 1 drp OPB BID 05/31/20 06/23/20 History oxycodone 5 - 10 mg PO Q4H PRN #30 tab 06/01/20 06/23/20 Rx multivitamin 1 tab PO DAILY 06/23/20 06/23/20 History Past Med/Surg History Medical History (Updated 06/23/20 @ 06:53 by Rupa Serrano DO) Allergic rhinitis, cause unspecified BPH loc w urin obs/LUTS Depressive disorder, not elsewhere classified Diabetes NIDDM Generalized osteoarthritis GERD without esophagitis Gouty arthropathy, unspecified History of diverticulitis of colon s/p hemicolectomy (1984) Hyperlipidemia Hypertension Idiopathic polyneuropathy Lumbar stenosis Nephrolithiasis passed without intervention Neurogenic claudication due to lumbar spinal stenosis Obesity, unspecified Periodic limb movement disorder 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 Surgical History (Updated 05/31/20 @ 13:55 by Sd Bingham DO) 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) History of appendectomy History of arthroplasty of left knee (2009) History of arthroscopic knee surgery (2002) R knee, ACL repair History of arthroscopic surgery of elbow Left History of carpal tunnel surgery R/L History of cataract surgery R/L History of colonoscopy multiple History of gastric bypass (1994) History of partial colectomy (1984) secondary to diverticulitis History of total right hip arthroplasty Hx of lumbosacral spine surgery L4-S1 decompression/fusion (03/17/19): Grade view 1, MAC#3, ETT 8.0 at [facility] Nausea and vomiting after administration of anesthetic agent S/P arthroscopy of shoulder (1999) Right S/P cervical spinal fusion (2010) C2-5 (ROM WNL per patient) S/P rotator cuff repair (2000) Right S/P tonsillectomy Status post reverse arthroplasty of right shoulder (~05/2020) Family History Father Family history of diabetes mellitus Kidney stones Denies family history of Ovarian cancer Prostate cancer Myocardial infarction Breast cancer Colorectal cancer Social History Smoking Status: Former smoker packs per day: 3; Second Hand Exposure: Yes (FAMILY SMOKED); Hx Alcohol Use: No Hx Substance Use: No Preferred Language: Polish Communication Ability: Effective Visual Impairment: Limited Hearing Ability: Normal 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 Feels Safe at Home: Yes Childhood Exposure to Second-Hand Smoke: Yes caffeine: Yes (Coffee x 2 per day. ) during the past year weight has: remained stable Dental Care, Regularly: Yes Physical Activity Frequency: Daily Seatbelt Use: always Sunscreen Use: Yes Assistive Devices: None Review of Systems Review of Systems: All systems reviewed & are unremarkable except as noted in HPI & below Physical Exam Physical Exam: General: patient resting comfortably, NAD, ill in appearance, AA&O x 4 Skin: warm, dry, intact, no rashes or lesions, right shoulder surgical site well approximated with no bleeding/erythema/drainage or dehiscence HEENT: NC/AT, PERRL, EOMI, anicteric sclera, conjunctiva without injection, external ear normal to inspection and nontender, nares patent, dry mucus membranes, dentition intact, no oropharyngeal lesions, neck supple, trachea midline, no LAD, no thyromegaly, no JVD Heart: +S1/S2, regular, tachycardic, no m/r/g Lungs: equal air entry bilaterally, no rales/rhonchi/wheezes Abd: +BS, soft, NT/ND, no masses/organomegaly/ascites, mild right sided CVA tenderness Ext: warm, 2+ pulses in UE/LE bilaterally, no clubbing/cyanosis or edema Neuro: nonfocal, patient AA&O x 4, speech intact, no facial droop, moving all extremities on command with equal strength 5/5 Results & Data Results & Data ([facility]) Vital Signs (Past 12 Hours) Vital Signs Temp Pulse Resp BP Pulse Ox 06/23/20 05:11 38 C H 06/23/20 03:14 36.8 C 122 H 18 159/79 H 95 Laboratory Results Lab Results 06/23/20 06/23/20 06/23/20 Range/Units 03:38 04:03 04:03 WBC 17.13 H (4.8-10.8) K/uL RBC 4.37 L (4.7-6.1) M/uL Hgb 13.4 L (14.0-18.0) g/dL Hct 39.9 L (42-52) % MCV 91.3 (80-100) fL MCH 30.7 (25-34) pg MCHC 33.6 (32-36) g/dL RDW Std Deviation 45.5 (36.4-46.3) fL RDW Coeff of Adan 13.8 (11.5-14.5) % Plt Count 322 (130-400) K/uL MPV 9.6 (7.4-10.4) fL Immature Gran % (Auto) 0.5 % Neut % (Auto) 77.8 % Lymph % (Auto) 9.1 % Tyrrell % (Auto) 11.9 % Eos % (Auto) 0.6 % Baso % (Auto) 0.1 % Neut # (Auto) 13.34 H (1.4-6.5) K/uL Lymph # (Auto) 1.56 (1.2-3.4) K/uL Tyrrell # (Auto) 2.03 H (0.11-0.59) K/uL Eos # (Auto) 0.10 (0-0.5) K/uL Baso # (Auto) 0.02 (0-0.2) K/uL Immature Gran # (Auto) 0.08 H (0.00-0.02) K/uL PT (9.0-12.0) Seconds INR (0.9-1.1) Sodium (136-145) mmol/L Potassium (3.5-5.1) mmol/L Chloride (98-107) mmol/L Carbon Dioxide (21-32) mmol/L Anion Gap (3-11) BUN (7-18) mg/dl Creatinine (0.6-1.4) mg/dl Est Cr Clr Drug Dosing Est GFR ( Amer) Est GFR (Non-Af Amer) BUN/Creatinine Ratio (10-20) Glucose (70-99) mg/dl POC Glucose 208 H (70-99) mg/dl Lactate 1.8 (0.4-2.0) mmol/L Calcium (8.5-10.1) mg/dl Magnesium (1.8-2.4) mg/dl Total Bilirubin (0.2-1) mg/dl Direct Bilirubin (0-0.2) mg/dl AST (15-37) U/L ALT (12-78) U/L Alkaline Phosphatase (45-117) U/L Troponin I (0-0.045) ng/ml Total Protein (6.4-8.2) gm/dl Albumin (3.4-5.0) gm/dl Lipase (73-393) U/L Procalcitonin (0-0.5) ng/ml Urine Color Urine Appearance (Clear) Urine pH (4.5-7.5) Ur Specific [place] (1.000-1.030) Urine Protein (Negative) Urine Glucose (UA) (Negative) Urine Ketones (Negative) Urine Blood (Negative) Urine Nitrite (Negative) Urine Bilirubin (Negative) Urine Urobilinogen (Negative) Ur Leukocyte Esterase (Negative) COVID-19 Eval Order SARS-CoV-2 (PCR) (Negative) Influenza Type A (PCR) (Neg) Influenza Type B (PCR) (Neg) RSV (RT-PCR) (Neg) 06/23/20 06/23/20 06/23/20 Range/Units 04:03 04:03 04:03 WBC (4.8-10.8) K/uL RBC (4.7-6.1) M/uL Hgb (14.0-18.0) g/dL Hct (42-52) % MCV (80-100) fL MCH (25-34) pg MCHC (32-36) g/dL RDW Std Deviation (36.4-46.3) fL RDW Coeff of Adan (11.5-14.5) % Plt Count (130-400) K/uL MPV (7.4-10.4) fL Immature Gran % (Auto) % Neut % (Auto) % Lymph % (Auto) % Tyrrell % (Auto) % Eos % (Auto) % Baso % (Auto) % Neut # (Auto) (1.4-6.5) K/uL Lymph # (Auto) (1.2-3.4) K/uL Tyrrell # (Auto) (0.11-0.59) K/uL Eos # (Auto) (0-0.5) K/uL Baso # (Auto) (0-0.2) K/uL Immature Gran # (Auto) (0.00-0.02) K/uL PT 10.4 (9.0-12.0) Seconds INR 1.0 (0.9-1.1) Sodium 134 L (136-145) mmol/L Potassium 4.0 (3.5-5.1) mmol/L Chloride 101 (98-107) mmol/L Carbon Dioxide 26 (21-32) mmol/L Anion Gap 7.0 (3-11) BUN 19 H (7-18) mg/dl Creatinine 1.11 (0.6-1.4) mg/dl Est Cr Clr Drug Dosing Not Reportable Est GFR ( Amer) 78.7 Est GFR (Non-Af Amer) 67.9 BUN/Creatinine Ratio 17.1 (10-20) Glucose 190 H (70-99) mg/dl POC Glucose (70-99) mg/dl Lactate (0.4-2.0) mmol/L Calcium 8.7 (8.5-10.1) mg/dl Magnesium 1.9 (1.8-2.4) mg/dl Total Bilirubin 0.9 (0.2-1) mg/dl Direct Bilirubin 0.3 H (0-0.2) mg/dl AST 14 L (15-37) U/L ALT 31 (12-78) U/L Alkaline Phosphatase 141 H (45-117) U/L Troponin I < 0.015 (0-0.045) ng/ml Total Protein 7.6 (6.4-8.2) gm/dl Albumin 3.6 (3.4-5.0) gm/dl Lipase 71 L (73-393) U/L Procalcitonin 0.23 (0-0.5) ng/ml Urine Color Urine Appearance (Clear) Urine pH (4.5-7.5) Ur Specific [place] (1.000-1.030) Urine Protein (Negative) Urine Glucose (UA) (Negative) Urine Ketones (Negative) Urine Blood (Negative) Urine Nitrite (Negative) Urine Bilirubin (Negative) Urine Urobilinogen (Negative) Ur Leukocyte Esterase (Negative) COVID-19 Eval Order SARS-CoV-2 (PCR) (Negative) Influenza Type A (PCR) (Neg) Influenza Type B (PCR) (Neg) RSV (RT-PCR) (Neg) 06/23/20 06/23/20 06/23/20 Range/Units 04:28 04:28 06:00 WBC (4.8-10.8) K/uL RBC (4.7-6.1) M/uL Hgb (14.0-18.0) g/dL Hct (42-52) % MCV (80-100) fL MCH (25-34) pg MCHC (32-36) g/dL RDW Std Deviation (36.4-46.3) fL RDW Coeff of Adan (11.5-14.5) % Plt Count (130-400) K/uL MPV (7.4-10.4) fL Immature Gran % (Auto) % Neut % (Auto) % Lymph % (Auto) % Tyrrell % (Auto) % Eos % (Auto) % Baso % (Auto) % Neut # (Auto) (1.4-6.5) K/uL Lymph # (Auto) (1.2-3.4) K/uL Tyrrell # (Auto) (0.11-0.59) K/uL Eos # (Auto) (0-0.5) K/uL Baso # (Auto) (0-0.2) K/uL Immature Gran # (Auto) (0.00-0.02) K/uL PT (9.0-12.0) Seconds INR (0.9-1.1) Sodium (136-145) mmol/L Potassium (3.5-5.1) mmol/L Chloride (98-107) mmol/L Carbon Dioxide (21-32) mmol/L Anion Gap (3-11) BUN (7-18) mg/dl Creatinine (0.6-1.4) mg/dl Est Cr Clr Drug Dosing Est GFR ( Amer) Est GFR (Non-Af Amer) BUN/Creatinine Ratio (10-20) Glucose (70-99) mg/dl POC Glucose (70-99) mg/dl Lactate (0.4-2.0) mmol/L Calcium (8.5-10.1) mg/dl Magnesium (1.8-2.4) mg/dl Total Bilirubin (0.2-1) mg/dl Direct Bilirubin (0-0.2) mg/dl AST (15-37) U/L ALT (12-78) U/L Alkaline Phosphatase (45-117) U/L Troponin I (0-0.045) ng/ml Total Protein (6.4-8.2) gm/dl Albumin (3.4-5.0) gm/dl Lipase (73-393) U/L Procalcitonin (0-0.5) ng/ml Urine Color Yellow Urine Appearance Clear (Clear) Urine pH 5.5 (4.5-7.5) Ur Specific [place] 1.016 (1.000-1.030) Urine Protein 2+ H (Negative) Urine Glucose (UA) Negative (Negative) Urine Ketones Negative (Negative) Urine Blood Trace H (Negative) Urine Nitrite Negative (Negative) Urine Bilirubin Negative (Negative) Urine Urobilinogen Negative (Negative) Ur Leukocyte Esterase Trace H (Negative) COVID-19 Eval Order CovFluRsv at [facility] SARS-CoV-2 (PCR) NEGATIVE (Negative) Influenza Type A (PCR) Negative (Neg) Influenza Type B (PCR) Negative (Neg) RSV (RT-PCR) Negative (Neg) Diagnostic Findings CT Abdomen - unremarkable. No diverticulitis CXR - no consolidation ECG Additional Comments: ST, no ischemic changes Code Status & VTE Plan VTE Prophylaxis Plan VTE Prophylaxis will be ordered: Yes PG Care Time/CCT Total # of Minutes Spent Total Time Spent with Patient: Total time spent is greater than 50% in coordination of care (as documented) at patient's floor/unit and/or counseling patient: Coding Level of Care Code 45461 Initial Inpt Care Lvl 3 Diagnoses Sepsis A41.9 Sepsis acute organ dysfunction status: unspecified Sepsis type: sepsis due to unspecified organism GERD without esophagitis K21.9 BPH loc w urin obs/LUTS N40.1 Hyperlipidemia E78.5 Hyperlipidemia type: unspecified Hypertension I10 Hypertension type: essential hypertension Diabetes E11.9 Diabetes mellitus type: type 2 Diabetes mellitus technician terminal and repeater insulin use: without technician terminal and repeater use Diabetes mellitus complication status: without complication Gouty arthropathy, unspecified M10.9 Migrainous headache without aura G43.009 Status migrainosus presence: without status migrainosus Intractability: not intractable (1) Sepsis Sepsis acute organ dysfunction status: unspecified Sepsis type: sepsis due to unspecified organism Qualified Code(s): A41.9 - Sepsis, unspecified organism (2) Migrainous headache without aura Status migrainosus presence: without status migrainosus Intractability: not intractable Qualified Code(s): G43.009 - Migraine without aura, not intractable, without status migrainosus (3) Hyperlipidemia Hyperlipidemia type: unspecified Qualified Code(s): E78.5 - Hyperlipidemia, unspecified (4) Hypertension Hypertension type: essential hypertension Qualified Code(s): I10 - Essential (primary) hypertension (5) Diabetes Diabetes mellitus type: type 2 Diabetes mellitus technician terminal and repeater insulin use: without technician terminal and repeater use Diabetes mellitus complication status: without complication Qualified Code(s): E11.9 - Type 2 diabetes mellitus without complications
--- NOTE | 2020-06-23 07:47 | CT Scan Report ---
CT head/brain wo con CLINICAL HISTORY: diffuse headache COMPARISON STUDY: MRI dated 05/21/2020 TECHNIQUE: Axial CT of the brain is performed from the vertex to the skull base. IV contrast was not administered for this examination. A dose lowering technique was utilized adhering to the principles of ALARA. CT DOSE: 614.27 mGy.cm FINDINGS: No intra or extra-axial mass lesions are visualized. There is no CT evidence of acute cortical infarc tion. There is no evidence of midline shift. There is no acute hemorrhage. No calvarial fractures ar e visualized. There is no evidence of pathologic ventricular dilatation. There is no evidence of acute sinusitis IMPRESSION: No acute intracranial findings ACT 112: Negative or not required by law. Electronically signed by: Thuan Casas M.D. 06/23/2020 7:46 AM
--- NOTE | 2020-06-23 08:32 | CT Scan Report ---
CT SCAN OF THE ABDOMEN AND PELVIS WITHOUT CONTRAST CLINICAL HISTORY: fever lower abdominal discomfort COMPARISON STUDY: No previous studies for comparison. TECHNIQUE: CT scan of the abdomen and pelvis was performed from the lung bases to the proximal femurs . Images are reviewed in the axial, sagittal, and coronal planes. IV contrast was not administered fo r this examination. A dose lowering technique was utilized adhering to the principles of ALARA. CT DOSE: 1947.76 mGy.cm FINDINGS: Lower chest: There is gynecomastia. There are no pleural effusions. There is mild basilar atelectasis Liver: There is hepatic steatosis. No focal masses are visualized in this noncontrast study Gallbladder: Cholelithiasis. No pericholecystic edema identified Spleen: Normal in size and attenuation. Pancreas: Unremarkable. Adrenal glands: Unremarkable. Kidneys: No renal, ureteral, or bladder calculi are visualized. Bowel: There are no transition zones to indicate bowel obstruction. There is no evidence of acute div erticulitis. There is no evidence of acute appendicitis. Postsurgical changes involve the stomach Peritoneum: There is no intraperitoneal free air or abdominal ascites. Vasculature: The abdominal aorta is normal in course and caliber. Adenopathy: None. Pelvic viscera: The bladder, and pelvic viscera are unremarkable. Skeletal structures: Postsurgical changes are present within the lumbar spine IMPRESSION: 1. No evidence of bowel obstruction. No evidence of free air 2. No evidence of acute appendicitis. No evidence of acute diverticulitis 3. Hepatic steatosis 4. Cholelithiasis. 5. No renal, ureteral, or bladder calculi identified. ACT 112: Negative or not required by law. Electronically signed by: Thuan Casas M.D. 06/23/2020 8:31 AM
--- NOTE | 2020-06-23 08:48 | XRay Report ---
XR chest 1V portable CLINICAL HISTORY: weakness COMPARISON STUDY: 05/15/2020 FINDINGS: The cardiac and mediastinal contours are normal. There is no evidence of focal pulmonary co nsolidation. There is no evidence of failure. No pleural effusions are visualized.[There are postsurg ical changes of a right shoulder arthroplasty. IMPRESSION: No active disease in the chest. ACT 112: Negative or not required by law. Electronically signed by: Thuan Casas M.D. 06/23/2020 8:47 AM
[2020-06-23] MEDS ORDERED: CARBOHYDRATES FOR HYPOGLYCEMIA PO PRN (09:07)
[2020-06-23] MEDS ORDERED: ACETAMINOPHEN 325 MG TAB PO PRN (09:07)
[2020-06-23] MEDS ORDERED: GLUCOSE 10 TABS/TUBE PO PRN (09:07)
[2020-06-23] MEDS ORDERED: CYCLOBENZAPRINE HCL 5 MG TAB PO PRN (09:07)
[2020-06-23] MEDS ORDERED: ONDANSETRON INJ 2 MG/ML 2 ML VIAL IV PRN (09:07)
[2020-06-23] MEDS ORDERED: IBUPROFEN 200 MG TAB PO PRN (09:07)
[2020-06-23] MEDS ORDERED: GLUCAGON FOR INJ 1 MG VIAL SQ PRN (09:07)
[2020-06-23] MEDS ORDERED: prednisoLONE acetate 1% OP SUSP 5 ML BTL OP SCH (09:07)
[2020-06-23] MEDS ORDERED: DOCUSATE SODIUM 100 MG CAP PO PRN (09:07)
[2020-06-23] MEDS ORDERED: GLUCOSE 40% GEL 15 GM TUBE PO PRN (09:07)
[2020-06-23] MEDS ORDERED: DEXTROSE 50% 50 ML SYRINGE IV PRN (09:07)
--- NOTE | 2020-06-23 09:41 | XRay Report ---
XR shoulder RT min 2V routine CLINICAL HISTORY: Fever. History of total right shoulder arthroplasty COMPARISON: May 31, 2020 DISCUSSION: There are postsurgical changes of a reverse total right shoulder arthroplasty. No fractur es or dislocations are visualized. No cortical destructive lesions are evident. IMPRESSION: 1. Postsurgical changes of a reverse total right shoulder arthroplasty 2. Interval removal of the skin wendie ACT 112: Negative or not required by law. Electronically signed by: Thuan Casas M.D. 06/23/2020 9:40 AM
[2020-06-23 09:42] LABS: Phosphorus 2.5 mg/dl (2.5-4.9)
[2020-06-23] MEDS ORDERED: VANCOMYCIN HCL 1,000 MG in SODIUM CHLORIDE 0.9% 250 ML IV STA (09:52)
--- NOTE | 2020-06-23 10:04 | Ultrasound Report ---
US liver CLINICAL HISTORY: Abnormal LFTs COMPARISON STUDY: CT scan dated 06/23/2020 FINDINGS: The pancreas appears normal as visualized. The liver is echogenic consistent with hepatic steatosis. There is no ductal dilatation. The common b ile duct measures 6 mm. There are multiple gallstones. There is no gallbladder wall thickening. There is no pericholecystic fluid. There is no right-sided hydronephrosis. IMPRESSION: 1. Cholelithiasis. No ductal dilatation 2. Increased hepatic echogenicity consistent with hepatic steatosis ACT 112: Negative or not required by law. Electronically signed by: Thuan Casas M.D. 06/23/2020 10:02 AM
--- NOTE | 2020-06-23 10:35 | Electrocardiogram Report ---
Test Reason : Blood Pressure : / mmHG Vent. Rate : 118 BPM Atrial Rate : 118 BPM P-R Int : 162 ms QRS Dur : 078 ms QT Int : 296 ms P-R-T Axes : 040 026 049 degrees QTc Int : 414 ms Sinus tachycardia Otherwise normal ECG When compared with ECG of 01-MAR-2019 13:37, No significant change was found Confirmed by Yunier Mercado ([id number]) on 06/23/2020 10:34:59 AM Referred By: REFERRED SELF Confirmed By:Yunier Mercado
[2020-06-23] MEDS: PIPERACILLIN/TAZOBACTAM 4.5 GM in DEXTROSE 5% 100 ML IV SCH ×2 (10:40→18:32)
[2020-06-23] MEDS: SODIUM CHLORIDE 0.9% 1000ML 1,000 ML IV SCH ×2 (10:40→18:32)
[2020-06-23] MEDS: ARTIFICIAL TEARS OP SCH ×2 (10:41→22:09)
[2020-06-23] MEDS: KETOROLAC 0.5% OP SOLN 5 ML BTL OPR SCH ×4 (10:41→22:08)
[2020-06-23] MEDS: ENOXAPARIN INJ 40 MG/0.4 ML SYR SQ SCH (10:42)
[2020-06-23] MEDS: INSULIN ASPART 100 UNITS/ML 3 ML PEN SC SCH ×4 (10:43→20:44)
[2020-06-23] MEDS: INSULIN GLARGINE SOLOSTAR 100 UNITS/ML 3 ML PEN SC SCH ×2 (10:43→20:44)
[2020-06-23] MEDS: prednisoLONE acetate 1% OP SUSP 5 ML BTL OP SCH ×2 (12:22→20:45)
--- NOTE | 2020-06-23 12:23 | Pharmacy Report ---
Pharmacy Abx Dose Short Note - Date of Service June 23, 2020 - Assessment & Plan Assessment 70 year old M receiving IV Vancomycin and Zosyn for treatment of empiric treatment of sepsis secondary to unclear source; possible pyelonephritis Day # 1 of antimicrobial therapy. * Renal function appears at baseline. Recent sCr = 1.11 mg/dL. Estimated pharmacokinetic parameters: * Ke ~0.073/hr; T1/2 ~9.5 hrs * Patient received Vancomycin 1750mg IV x 1 in the ED as a loading dose; this is only 15mg/kg * Conservative Vancomycin dosing for BMI >35 to avoid drug accumulation Plan Vancomycin * Give additional Vancomycin 1000mg IV x 1 now to make a total loading dose [place] 2750mg (~23mg/kg) today * Start Vancomycin 1500mg (~13mg/kg) IV q12 as maintenance regimen * Goal trough level for sepsis : 15 to 20 mcg/mL * No Vancomycin level ordered at this time due to empiric indication; order if therapy continues >48 hours Zosyn * Zosyn 4.5g IV given as loading dose in the ED * Initiate Zosyn 4.5g IV q8 (extended infusion) for CrCl >20 mL/min Pharmacy will continue to follow and will adjust dose/frequency as necessary. Thank you.
--- NOTE | 2020-06-23 16:50 | Communication Note ---
Date of Service: June 23, 2020 Seen in follow-up from early a.m. admission Notes that he is feeling better, resting, less dizzy and woozy than earlier. On directed questioning it is also clear that his dysuria has improved as the day has progressed. Vitals noted, in general he is awake and alert pleasant no distress. HEENT normocephalic atraumatic mucous membranes moist. Breathing unlabored no accessory muscle use good effort. Skin shows no rashes no pallor or icterus. Neuro shows no focal deficits. UTI with sepsis present on admissioncontinue current antibiotics for further reviewonce urine culture returns likely can streamline antibiotics. Could consider DC Vanco even sooner than that, but given overall presentation and recent surgery will hold on this for now just to allow more time for serial exams. DVT prophylaxisLovenox
[2020-06-23] MEDS: allopurinoL 300 MG TAB PO SCH (20:40)
[2020-06-23] MEDS: amLODIPine BESYLATE 5 MG TAB PO SCH (20:40)
[2020-06-23] MEDS: buPROPion SR 100 MG TABCR PO SCH (20:40)
[2020-06-23] MEDS: AMITRIPTYLINE HCL 100 MG TAB PO SCH (20:41)
[2020-06-23] MEDS: PANTOprazole 40 MG TAB PO SCH (20:41)
[2020-06-23] MEDS: MELOXICAM 7.5 MG TAB PO SCH (20:41)
[2020-06-23] MEDS: GABAPENTIN 300 MG CAP PO SCH (20:41)
[2020-06-23] MEDS: TAMSULOSIN HCL 0.4 MG CAP PO SCH (20:42)
[2020-06-23] MEDS: ATORVASTATIN 20 MG TAB PO SCH (20:42)
[2020-06-23] MEDS: VANCOMYCIN HCL 1,500 MG in SODIUM CHLORIDE 0.9% 500 ML IV SCH (22:24)
[2020-06-24] MEDS: PIPERACILLIN/TAZOBACTAM 4.5 GM in DEXTROSE 5% 100 ML IV SCH ×3 (02:10→17:14)
--- NOTE | 2020-06-24 07:06 | Hospitalist Progress Note ---
Date of Service June 24, 2020 Assessment & Plan (1) Sepsis: Hill Smith is a 70 y/o M w/ hx of BPH who presents w/ urinary symptoms and lower abdominal pain likely secondary to acute UTI. Urine culture is growing gram neg bacteria. sepsis, likely 2/2 UTI Febrile, tachycardic, leukocytosis. Negative for influenza, RSV and Covid. Lungs CTA, Abdominal CT unremarkable. - + CVA ttp on admission. none on my exam 06/24 - per patient, some mild confusion and headache on admission, better now - continue empiric vanc and zosyn -Check RUQUS- no hydronephrosis on right. + hepatic steatosis -Check Xray right shoulder - no pain. xr not suggestive of infection -wbc 17.13->10.22. -Tylenol PRN fever acute urinary tract infection - systemic symptoms (fever); pyelo is on differential - RLQ pain less suggestive of pyelo; patient states he is s/p appendectomy. CT abd w/o contrast not suggestive of appendicitis. will monitor clinically and recheck in AM - tx as per above GERD Chronic. Stable -Continue Omeprazole BPH Chronic -Monitor UOP -Straight cath as needed -Continue FLomax HLD Chronic. Stable -Continue Atorvastatin HTN Chronic. Elevated currently -Continue Amlodipine 5mg po daily -Monitor diabetes mellitus Chronic. -Lantus 10u BID -ISS -Goal BS 100 - 140 -Hold Metformin gout Chronic. Stable without flare -Continue Allopurinol migraine headache without aura Chronic -Contineu Elavil 100mg po qPM F/E/N - not on mIVF. CC/AHA diet as tolerated Ppx - Lovenox Code- Full Dispo - Admit to medical with telemetry (2) GERD without esophagitis: (3) BPH loc w urin obs/LUTS: (4) Hyperlipidemia: (5) Hypertension: (6) Diabetes: (7) Gouty arthropathy, unspecified: (8) Migrainous headache without aura: Admission and Anticipated Discharge Date Admission Date: June 23, 2020 Supervising Physician Co-Signing Physician Notes I also saw the patient and confirmed tarango portions of the history and exam. I agree with the impression and plan as noted in the resident documentation. Upon exam this afternoon, the patient reports feeling much better as compared to yesterday. He does have very mild right lower abdominal quadrant discomfort, though he tells me this is better when compared to yesterday. He does have some dysuria today. Exam 126/72, 88, 20, 96% on room air. Nontoxic. No acute distress. Heart regular. Lungs clear. Data White blood cell count 10.2, down from 17.1 yesterday. Hemoglobin 11.3. BMP is unremarkable Urine culture shows gram-negative bacilli, speciation pending. Impression Sepsis, Urinary tract infection, Present upon admission History of BPH with obstruction Hypertension diabetes Plan Continue current Rx until blood and urine cultures finalized Very mild right lower quadrant abdominal pain nonspecific this point, continue to monitor. Reports decreased appetite also will continue IV fluids. Subjective Patient feels better than he did yesterday.+fatigue x 1 week. Denies hx blood clot heart atk stroke. - Hx of gastric bypass - No incontinence. No numb/ting. - 4/10 lower mid abd pain. - + dysuria since yesterday. no hematuria. + frequency x 10 days. - + lack of appetite. Review of Systems Review of Systems: Constitutional: Denies fevers, chills, unintentional wt loss Cardiovascular: Denies chest pain Respiratory: Denies shortness of breath Gastrointestinal: Denies vomiting, constipation, diarrhea Genitourinary: _ mild dysuria Musculoskeletal: Denies weakness, muscle aches/pain, joint aches/pain Neurological: Denies headache, numbness, tingling, focal weakness Physical Exam Physical Exam: General: Grossly A&O. NAD. Cooperative. HEENT: Atraumatic, normocephalic. Pulm: CTAB. -wheezes, -rales, -rhonchi. No respiratory distress. Cardiac: RRR, -mrg. Very minimal trace pitting LE edema. Abdominal: RLQ TTP, no rebound. Abd is soft, nondistended. Back: No CVA TTP. Results & Data Results & Data ([facility]) Vital Signs (Past 12 Hours) Vital Signs Temp Pulse Resp BP Pulse Ox 06/24/20 04:34 37.6 C H 93 H 18 128/71 93 06/23/20 22:43 36.9 C 86 18 117/67 95 06/23/20 19:07 36.6 C 88 18 112/66 94 Resident Activity Tracking Resident Involvement: Resident Care Provided Care Provided: Adult Hospital Medicine (1) Diabetes Diabetes mellitus complication status: without complication Diabetes mellitus remote computer terminal operator insulin use: without remote computer terminal operator use Diabetes mellitus type: type 2 Qualified Code(s): E11.9 - Type 2 diabetes mellitus without complications (2) Migrainous headache without aura Intractability: not intractable Status migrainosus presence: without status migrainosus Qualified Code(s): G43.009 - Migraine without aura, not intracta ble, without status migrainosus (3) Hyperlipidemia Hyperlipidemia type: unspecified Qualified Code(s): E78.5 - Hyperlipidemia, unspecified (4) Sepsis Sepsis acute organ dysfunction status: unspecified Sepsis type: sepsis due to unspecified organism Qualified Code(s): A41.9 - Sepsis, unspecified organism (5) Hypertension Hypertension type: essential hypertension Qualified Code(s): I10 - Essential (primary) hypertension
[2020-06-24 07:47] LABS: Basophils # (auto) 0.02 K/uL (0-0.2); Basophils % (auto) 0.2 %; Eosinophils # (auto) 0.27 K/uL (0-0.5); Eosinophils % (auto) 2.6 %; Hemoglobin 11.3 g/dL (14.0-18.0); Immature Granulocytes # (auto) 0.03 K/uL (0.00-0.02); Immature Granulocytes % (auto) 0.3 %; Lymphocytes # (auto) 1.47 K/uL (1.2-3.4); Lymphocytes % (auto) 14.4 %; Mean Corpuscular Hemoglobin 31.4 pg (25-34); Mean Corpuscular Hgb Conc 34.2 g/dL (32-36); Mean Corpuscular Volume 91.7 fL (80-100); Mean Platelet Volume 9.5 fL (7.4-10.4); Monocytes # (auto) 0.93 K/uL (0.11-0.59); Monocytes % (auto) 9.1 %; Neutrophils % (auto) 73.4 %; Platelet Count 275 K/uL (130-400); RDW Coefficient of Variation 13.8 % (11.5-14.5); RDW Standard Deviation 46.3 fL (36.4-46.3); White Blood Count 10.22 K/uL (4.8-10.8)
[2020-06-24] MEDS: KETOROLAC 0.5% OP SOLN 5 ML BTL OPR SCH ×4 (08:09→20:04)
[2020-06-24] MEDS: prednisoLONE acetate 1% OP SUSP 5 ML BTL OP SCH ×3 (08:09→20:02)
[2020-06-24] MEDS: ARTIFICIAL TEARS OP SCH ×2 (08:10→20:06)
[2020-06-24] MEDS: INSULIN GLARGINE SOLOSTAR 100 UNITS/ML 3 ML PEN SC SCH ×2 (08:11→20:41)
[2020-06-24] MEDS: INSULIN ASPART 100 UNITS/ML 3 ML PEN SC SCH ×4 (08:11→20:37)
[2020-06-24 08:31] LABS: Alanine Aminotransferase 25 U/L (12-78); Albumin Level 2.8 gm/dl (3.4-5.0); Alkaline Phosphatase 97 U/L (45-117); Aspartate Aminotransferase 12 U/L (15-37); BUN Creatinine Ratio 10.6 (10-20); Bilirubin,Total 0.6 mg/dl (0.2-1); Blood Urea Nitrogen 10 mg/dl (7-18); Calcium 8.4 mg/dl (8.5-10.1); Carbon Dioxide 27 mmol/L (21-32); Chloride 107 mmol/L (98-107); Creatinine Clr Calc Pharmacy 97.7 ml/min; Est GFR (African American) 94.9; Est GFR (Non-African American) 81.9; Glucose 97 mg/dl (70-99); Potassium 3.7 mmol/L (3.5-5.1); Sodium 138 mmol/L (136-145); Total Protein 6.1 gm/dl (6.4-8.2)
[2020-06-24 09:05] LABS: Bilirubin Direct < 0.1 mg/dl (0-0.2)
[2020-06-24] MEDS: ENOXAPARIN INJ 40 MG/0.4 ML SYR SQ SCH (10:32)
[2020-06-24] MEDS: VANCOMYCIN HCL 1,500 MG in SODIUM CHLORIDE 0.9% 500 ML IV SCH ×2 (10:33→21:13)
[2020-06-24] MEDS: allopurinoL 300 MG TAB PO SCH (20:00)
[2020-06-24] MEDS: TAMSULOSIN HCL 0.4 MG CAP PO SCH (20:00)
[2020-06-24] MEDS: ATORVASTATIN 20 MG TAB PO SCH (20:00)
[2020-06-24] MEDS: PANTOprazole 40 MG TAB PO SCH (20:00)
[2020-06-24] MEDS: amLODIPine BESYLATE 5 MG TAB PO SCH (20:00)
[2020-06-24] MEDS: buPROPion SR 100 MG TABCR PO SCH (20:01)
[2020-06-24] MEDS: GABAPENTIN 300 MG CAP PO SCH (20:01)
[2020-06-24] MEDS: MELOXICAM 7.5 MG TAB PO SCH (20:01)
[2020-06-24] MEDS: AMITRIPTYLINE HCL 100 MG TAB PO SCH (20:02)
[2020-06-25] MEDS: PIPERACILLIN/TAZOBACTAM 4.5 GM in DEXTROSE 5% 100 ML IV SCH (02:02)
--- NOTE | 2020-06-25 06:44 | Hospitalist Progress Note ---
Date of Service June 25, 2020 Assessment & Plan (1) Sepsis: Hill Smith is a 70 y/o M w/ hx of BPH who presents w/ urinary symptoms and lower abdominal pain likely secondary to acute UTI. Urine culture is growing ecoli (resistant to Unasyn). sepsis, likely 2/2 UTI Febrile, tachycardic, leukocytosis on admission. Negative for influenza, RSV and Covid. Lungs CTA, Abdominal CT unremarkable. - + CVA ttp on admission. none on subsequent exams - per patient, some mild confusion and headache on admission, confusion resolved, but still has mild DUMONT - completed empiric vanc and zosyn x 48 hrs. started IV ceftriaxone 2 g daily on 06/25 imaging workup at admission to r/o infection - RUQUS- no hydronephrosis on right. + hepatic steatosis Xray right shoulder - no pain. xr not suggestive of infection -wbc 17.13->10.22->6.5 (06/25). Hb stable 11.7. bmp wnl. Cr 1.03, stable -Tylenol PRN for fever; patient has been afebrile x 24 hrs+ acute urinary tract infection - systemic symptoms (fever); pyelo is on differential, less likely given lack of CVA or abdominal ttp on reexamination - RLQ pain less suggestive of pyelo; patient states he is s/p appendectomy. CT abd w/o contrast not suggestive of appendicitis. - still has dysuria as of 06/25; continue abx R sided musculoskeletal pain at hip - per exam on 06/25, pain is focally at bone (iliac crest) and not at abdomen - therefore lower suspicion of pyelo or abdominal etiology - considered msk etiologies such as sacroilitis, tendonitis, muscle strain, arthritis - outpatient conservative treatment GERD Chronic. Stable -Continue Omeprazole BPH Chronic -Monitor UOP -Straight cath as needed -Continue FLomax HLD Chronic. Stable -Continue Atorvastatin HTN Chronic. Elevated currently -Continue Amlodipine 5mg po daily -Monitor diabetes mellitus Chronic. -Lantus 10u BID -ISS -Goal BS 100 - 140 -Hold Metformin gout Chronic. Stable without flare -Continue Allopurinol migraine headache without aura Chronic -Contineu Elavil 100mg po qPM F/E/N - not on mIVF. CC/AHA diet as tolerated Ppx - Lovenox 40 mg SQ daily Code- Full Dispo - med/surg w/ tele (2) GERD without esophagitis: (3) BPH loc w urin obs/LUTS: (4) Hyperlipidemia: (5) Hypertension: (6) Diabetes: (7) Gouty arthropathy, unspecified: (8) Migrainous headache without aura: (9) Hip pain, right: Admission and Anticipated Discharge Date Admission Date: June 23, 2020 Supervising Physician Co-Signing Physician Notes I also saw the patient and confirmed tarango portions of the history and exam. I agree with the impression and plan as noted in the resident documentation. Upon exam this afternoon, the patient reports feeling much better as compared to yesterday. His appetite is still somewhat decreased although he tolerated a small breakfast and lunch without nausea or vomiting. He continues to complain of right sided pain and upon further investigation/examination today, the pain seems to be most consistent with a right hip arthritic type pain. He does tell us that he has had injections of his right hip previously and that the pain he has now is fairly consistent with what he has had previously. Not so much pain at rest but he does note increased pain with walking. He does note some mild dysuria but this is improving as well. Exam 135/67, 89, 18, 36.6, 95% on room air Nontoxic. No acute distress. Heart regular. Lungs clear. Upon palpation, he has tenderness on the right anterior superior iliac spine. The right lower quadrant is soft and nontender with palpation. Laboratory White blood cell count has normalized at 6.50. Hemoglobin stable at 11.7. Renal function preserved with a BUN of 11, creatinine 1.03. Urine culture shows E. coli, greater 100,000 colonies, sensitive to ceftriaxone. Impression Sepsis, Urinary tract infection, POA History of BPH with obstruction Hypertension diabetes Plan Generally improving; the right sided discomfort noted yesterday I now feel is related to musculoskeletal etiology Antibiotics changed to Rocephin PT/OT consult Subjective Patient is feeling ok. No new symptoms. RLQ tender only when pressed on it. +moderate dysuria. No hematuria, incontinence, groin numbness. No F/C, N/V. Hx total hip replacement on R, performed at [facility]. Review of Systems Review of Systems: Constitutional: Denies fever, chills, weight change Eyes: Denies blurry vision, vision changes ENT: Denies sore throat, sinus pain Cardiovascular: Denies chest pain, palpitations Respiratory: Denies shortness of breath Gastrointestinal: Denies abdominal pain, nausea, vomiting, constipation, diarrhea. + flatus. no BM since arrival. Genitourinary: See HPI Musculoskeletal: Denies weakness, muscle aches/pain, joint aches/pain Neurological: Denies numbness, tingling, focal weakness. + DUMONT (goes from back to front. + photophobia), has had for past 2 months. Physical Exam Physical Exam: General: Grossly A&O. NAD. Cooperative. HEENT: Atraumatic, normocephalic. Pulm: CTAB. -wheezes, -rales, -rhonchi. No respiratory distress. Cardiac: RRR, -mrg. No LE edema Abdominal: Nontender, nondistended, soft. Msk: TTP at lowest R rib and at R iliac crest. Not tender at abd. Results & Data Results & Data ([facility]) Vital Signs (Past 12 Hours) Vital Signs Temp Pulse Pulse Resp BP Pulse Ox 06/25/20 03:53 36.8 C 77 18 111/65 93 06/24/20 23:06 36.5 C 88 18 130/80 93 06/24/20 22:20 90 06/24/20 19:00 36.9 C 88 18 135/76 94 Resident Activity Tracking Resident Involvement: Resident Care Provided Care Provided: Adult Hospital Medicine (1) Diabetes Diabetes mellitus complication status: without complication Diabetes mellitus long term care social worker insulin use: without long term care social worker use Diabetes mellitus type: type 2 Qualified Code(s): E11.9 - Type 2 diabetes mellitus without complications (2) Migrainous headache without aura Intractability: not intractable Status migrainosus presence: without status migrainosus Qualified Code(s): G43.009 - Migraine without aura, not intractable, without status migrainosus (3) Hyperlipidemia Hyperlipidemia type: unspecified Qualified Code(s): E78.5 - Hyperlipidemia, unspecified (4) Sepsis Sepsis acute organ dysfunction status: unspecified Sepsis type: sepsis due to unspecified organism Qualified Code(s): A41.9 - Sepsis, unspecified organism (5) Hypertension Hypertension type: essential hypertension Qualified Code(s): I10 - Essential (primary) hypertension
[2020-06-25 07:21] LABS: Basophils # (auto) 0.03 K/uL (0-0.2); Basophils % (auto) 0.5 %; Eosinophils # (auto) 0.24 K/uL (0-0.5); Eosinophils % (auto) 3.7 %; Hematocrit (blood only) 34.9 % (42-52); Hemoglobin 11.7 g/dL (14.0-18.0); Immature Granulocytes # (auto) 0.04 K/uL (0.00-0.02); Immature Granulocytes % (auto) 0.6 %; Lymphocytes # (auto) 1.64 K/uL (1.2-3.4); Lymphocytes % (auto) 25.2 %; Mean Corpuscular Hemoglobin 30.5 pg (25-34); Mean Corpuscular Hgb Conc 33.5 g/dL (32-36); Mean Corpuscular Volume 91.1 fL (80-100); Mean Platelet Volume 9.2 fL (7.4-10.4); Monocytes # (auto) 0.59 K/uL (0.11-0.59); Monocytes % (auto) 9.1 %; Neutrophils # (auto) 3.96 K/uL (1.4-6.5); Neutrophils % (auto) 60.9 %; Platelet Count 250 K/uL (130-400); RDW Coefficient of Variation 13.7 % (11.5-14.5); RDW Standard Deviation 45.1 fL (36.4-46.3); Red Blood Count 3.83 M/uL (4.7-6.1)
[2020-06-25] MEDS: ARTIFICIAL TEARS OP SCH ×2 (07:39→21:22)
[2020-06-25] MEDS: KETOROLAC 0.5% OP SOLN 5 ML BTL OPR SCH ×4 (07:39→21:21)
[2020-06-25] MEDS: prednisoLONE acetate 1% OP SUSP 5 ML BTL OP SCH ×3 (07:39→21:21)
[2020-06-25 08:02] LABS: BUN Creatinine Ratio 10.4 (10-20); Calcium 8.8 mg/dl (8.5-10.1); Est GFR (African American) 86.1; Est GFR (Non-African American) 74.3; Potassium 3.8 mmol/L (3.5-5.1)
[2020-06-25] MEDS: INSULIN GLARGINE SOLOSTAR 100 UNITS/ML 3 ML PEN SC SCH ×2 (08:10→21:23)
[2020-06-25] MEDS: INSULIN ASPART 100 UNITS/ML 3 ML PEN SC SCH ×4 (08:10→21:23)
[2020-06-25] MEDS: ENOXAPARIN INJ 40 MG/0.4 ML SYR SQ SCH (08:11)
[2020-06-25] MEDS: VANCOMYCIN HCL 1,500 MG in SODIUM CHLORIDE 0.9% 500 ML IV SCH (09:51)
[2020-06-25] MEDS: cefTRIAXone SODIUM 2,000 MG in DEXTROSE 5% 50 ML IV SCH (13:01)
[2020-06-25] MEDS: PANTOprazole 40 MG TAB PO SCH (21:22)
[2020-06-25] MEDS: allopurinoL 300 MG TAB PO SCH (21:22)
[2020-06-25] MEDS: amLODIPine BESYLATE 5 MG TAB PO SCH (21:22)
[2020-06-25] MEDS: GABAPENTIN 300 MG CAP PO SCH (21:22)
[2020-06-25] MEDS: buPROPion SR 100 MG TABCR PO SCH (21:22)
[2020-06-25] MEDS: TAMSULOSIN HCL 0.4 MG CAP PO SCH (21:22)
[2020-06-25] MEDS: MELOXICAM 7.5 MG TAB PO SCH (21:22)
[2020-06-25] MEDS: AMITRIPTYLINE HCL 100 MG TAB PO SCH (21:23)
[2020-06-25] MEDS: ATORVASTATIN 20 MG TAB PO SCH (21:23)
--- NOTE | 2020-06-26 07:06 | Hospitalist Progress Note ---
Date of Service June 26, 2020 Assessment & Plan (1) Sepsis: Hill Smith is a 70 y/o M w/ hx of BPH who presents w/ urinary symptoms and lower abdominal pain likely secondary to acute UTI. Urine culture is growing ecoli (resistant to Unasyn). sepsis, likely 2/2 UTI Febrile, tachycardic, leukocytosis on admission. Negative for influenza, RSV and Covid. Lungs CTA, Abdominal CT unremarkable. - + CVA ttp on admission. none on subsequent exams - per patient, some mild confusion and headache on admission, confusion resolved, but still has mild DUMONT - completed empiric vanc and zosyn x 48 hrs. started IV ceftriaxone 2 g daily on 06/25 imaging workup at admission to r/o infection - RUQUS- no hydronephrosis on right. + hepatic steatosis Xray right shoulder - no pain. xr not suggestive of infection -wbc 17.13->10.22->6.5 (06/25). Hb stable 11.7. bmp wnl. Cr 1.03, stable -Tylenol PRN for fever; patient has been afebrile x 24 hrs+ acute urinary tract infection - systemic symptoms (fever); pyelo is on differential, less likely given lack of CVA or abdominal ttp on reexamination - RLQ pain less suggestive of pyelo; patient states he is s/p appendectomy. CT abd w/o contrast not suggestive of appendicitis. - still has dysuria as of 06/25; continue abx R sided musculoskeletal pain at hip - per exam on 06/25, pain is focally at bone (iliac crest) and not at abdomen - therefore lower suspicion of pyelo or abdominal etiology - considered msk etiologies such as sacroilitis, tendonitis, muscle strain, arthritis - outpatient conservative treatment GERD Chronic. Stable -Continue Omeprazole BPH Chronic -Monitor UOP -Straight cath as needed -Continue FLomax HLD Chronic. Stable -Continue Atorvastatin HTN Chronic. Elevated currently -Continue Amlodipine 5mg po daily -Monitor diabetes mellitus Chronic. -Lantus 10u BID -ISS -Goal BS 100 - 140 -Hold Metformin gout Chronic. Stable without flare -Continue Allopurinol migraine headache without aura Chronic -Contineu Elavil 100mg po qPM F/E/N - not on mIVF. CC/AHA diet as tolerated Ppx - Lovenox 40 mg SQ daily Code- Full Dispo - med/surg w/ tele (2) GERD without esophagitis: (3) BPH loc w urin obs/LUTS: (4) Hyperlipidemia: (5) Hypertension: (6) Diabetes: (7) Gouty arthropathy, unspecified: (8) Migrainous headache without aura: (9) Hip pain, right: Admission and Anticipated Discharge Date Admission Date: June 23, 2020 Review of Systems Review of Systems: Constitutional: Denies fever, chills, weight change Eyes: Denies blurry vision, vision changes ENT: Denies sore throat, sinus pain Cardiovascular: Denies chest pain, palpitations Respiratory: Denies shortness of breath Gastrointestinal: Denies abdominal pain, nausea, vomiting, constipation, diarrhea Genitourinary: Denies urinary symptoms including dysuria Musculoskeletal: Denies weakness, muscle aches/pain, joint aches/pain Neurological: Denies headache, numbness, tingling, focal weakness Physical Exam Physical Exam: General: Grossly A&O. NAD. Cooperative. HEENT: Atraumatic, normocephalic. EOMI Pulm: CTAB. -wheezes, -rales, -rhonchi. No respiratory distress. Cardiac: RRR, -mrg. Radial pulses intact and symmetrical. Abdominal: Nontender, nondistended, soft. Results & Data Results & Data ([facility]) Vital Signs (Past 12 Hours) Vital Signs Temp Pulse Pulse Resp BP BP Pulse Ox 06/26/20 04:00 36.4 C L 77 18 119/61 95 06/26/20 00:23 36.4 C L 89 18 128/70 93 06/26/20 00:00 88 06/25/20 21:55 82 06/25/20 20:00 36.7 C 96 H 18 144/80 H 95 (1) Sepsis Sepsis acute organ dysfunction status: unspecified Sepsis type: sepsis due to unspecified organism Qualified Code(s): A41.9 - Sepsis, unspecified organism (2) Hyperlipidemia Hyperlipidemia type: unspecified Qualified Code(s): E78.5 - Hyperlipidemia, unspecified (3) Hypertension Hypertension type: essential hypertension Qualified Code(s): I10 - Essential (primary) hypertension (4) Diabetes Diabetes mellitus type: type 2 Diabetes mellitus equipment operator intermodal yard insulin use: without equipment operator intermodal yard use Diabetes mellitus complication status: without complication Qualified Code(s): E11.9 - Type 2 diabetes mellitus without complications (5) Migrainous headache without aura Status migrainosus presence: without status migrainosus Intractability: not intractable Qualified Code(s): G43.009 - Migraine without aura, not intractable, without status migrainosus
[2020-06-26 07:42] LABS: Basophils # (auto) 0.03 K/uL (0-0.2); Basophils % (auto) 0.5 %; Eosinophils # (auto) 0.33 K/uL (0-0.5); Hematocrit (blood only) 36.1 % (42-52); Hemoglobin 12.3 g/dL (14.0-18.0); Immature Granulocytes # (auto) 0.04 K/uL (0.00-0.02); Immature Granulocytes % (auto) 0.7 %; Lymphocytes # (auto) 1.72 K/uL (1.2-3.4); Lymphocytes % (auto) 31.4 %; Mean Corpuscular Hemoglobin 30.6 pg (25-34); Mean Corpuscular Hgb Conc 34.1 g/dL (32-36); Mean Corpuscular Volume 89.8 fL (80-100); Mean Platelet Volume 9.4 fL (7.4-10.4); Monocytes # (auto) 0.83 K/uL (0.11-0.59); Monocytes % (auto) 15.2 %; Neutrophils # (auto) 2.52 K/uL (1.4-6.5); Neutrophils % (auto) 46.2 %; Platelet Count 318 K/uL (130-400); RDW Coefficient of Variation 13.4 % (11.5-14.5); RDW Standard Deviation 44.2 fL (36.4-46.3); Red Blood Count 4.02 M/uL (4.7-6.1); White Blood Count 5.47 K/uL (4.8-10.8)
[2020-06-26] MEDS: INSULIN ASPART 100 UNITS/ML 3 ML PEN SC SCH ×2 (08:01→11:52)
[2020-06-26] MEDS: KETOROLAC 0.5% OP SOLN 5 ML BTL OPR SCH ×2 (08:02→11:52)
[2020-06-26] MEDS: INSULIN GLARGINE SOLOSTAR 100 UNITS/ML 3 ML PEN SC SCH (08:02)
[2020-06-26] MEDS: cefTRIAXone SODIUM 2,000 MG in DEXTROSE 5% 50 ML IV SCH (08:02)
[2020-06-26] MEDS: prednisoLONE acetate 1% OP SUSP 5 ML BTL OP SCH (08:02)
[2020-06-26] MEDS: ARTIFICIAL TEARS OP SCH (08:02)
[2020-06-26 08:16] LABS: BUN Creatinine Ratio 13.7 (10-20); Calcium 9.2 mg/dl (8.5-10.1); Creatinine Clr Calc Pharmacy 85.9 ml/min; Est GFR (African American) 82.2; Potassium 4.2 mmol/L (3.5-5.1)
[2020-06-26] MEDS: ENOXAPARIN INJ 40 MG/0.4 ML SYR SQ SCH (08:46)
--- NOTE | 2020-06-26 14:02 | Discharge Summary ---
Date of Service June 26, 2020 Admission HPI Per Admitting Provider Hill Smith is a 70yo C male presenting with fever/chills as well as dry cough and ongoing headache. Patient reports symptoms began yesterday with a dry cough - fever to 103 and headache. He also reports dizziness and some confusion. He fell out of bed earlier today going to the bathroom and was unable to get himself off the floor due to profound weakness. He reports increased urinary frequency last week as well as urgency. He had dysuria today. Patient denies visual changes, abdominal pain, nausea, vomiting, diarrhea or constipation. Denies rashes, joint pain or swelling Patient had a shoulder replacement performed [address] Bingham. Surgery went well with no complications. He states he has very minimal pain at the site. Wound is healing well with no drainage, erythema or dehiscence. No travel. No sick contacts. Patient has received both doses of Covid-19 vaccine. ER Course: Vancomycin, Zosyn, NSS x 2L Admission Exam Per Admitting Provider Hill Smith is a 70yo C male presenting with fever/chills as well as dry cough and ongoing headache. Patient reports symptoms began yesterday with a dry cough - fever to 103 and headache. He also reports dizziness and some confusion. He fell out of bed earlier today going to the bathroom and was unable to get himself off the floor due to profound weakness. He reports increased urinary frequency last week as well as urgency. He had dysuria today. Patient denies visual changes, abdominal pain, nausea, vomiting, diarrhea or constipation. Denies rashes, joint pain or swelling Patient had a shoulder replacement performed [address] Bingham. Surgery went well with no complications. He states he has very minimal pain at the site. Wound is healing well with no drainage, erythema or dehiscence. No travel. No sick contacts. Patient has received both doses of Covid-19 vaccine. ER Course: Vancomycin, Zosyn, NSS x 2L Principal Diagnosis complicated UTI Discharge Exam General: Grossly A&O. NAD. Cooperative. HEENT: Atraumatic, normocephalic. Pulm: CTAB. -wheezes, -rales, -rhonchi. No respiratory distress. Cardiac: RRR, -mrg. Radial pulses intact and symmetrical. No LE edema. Abdominal: Nontender, nondistended, soft. Musculoskeletal: Mild TTP at tip or right anterior ribcage and at right anterior iliac crest. Discharge Data Allergies Allergy/AdvReac Type Severity Reaction Status Date / Time imipenem Allergy Severe Hives, Verified 06/23/20 04:12 dyspnea (tolerates Cefazolin) latex Allergy Severe Dyspnea Verified 06/23/20 04:12 Sulfa (Sulfonamide Allergy Severe Dyspnea Verified 06/23/20 04:12 Antibiotics) adhesive tape Allergy Unknown Rash Verified 06/23/20 04:12 Fish Containing Products Allergy Unknown Unknown Verified 06/24/20 11:47 iodine Allergy Unknown Dyspnea Verified 06/23/20 04:12 with contrast dyes (tolerates topical use) moxifloxacin Allergy Unknown Respiratory Verified 06/23/20 04:12 distress, hives peach Allergy Unknown Unknown Verified 06/24/20 11:46 mustard Allergy Unknown Verified 06/23/20 04:12 shellfish derived Allergy Unknown Verified 06/23/20 04:12 watermelon Allergy Unknown Verified 06/23/20 04:12 Primaxin SOLR Allergy Unknown Dyspnea Uncoded 06/23/20 04:12 Consultations 06/23/20 05:42 ED Decision to Admit Stat Ordered Studies 06/23/20 03:28 CT abd pelvis wo con Urgent 06/23/20 05:04 CT head/brain wo con Urgent 06/23/20 09:07 US liver Routine Hospital Course (1) Sepsis: Hill Smith is a 70 y/o M w/ hx of BPH who presented to [facility] w/ urinary symptoms and lower abdominal pain likely secondary to acute UTI. Urine culture grew e coli (resistant to Unasyn). Follow up w/ PCP in 1 week. sepsis, likely 2/2 complicated UTI (resolved) Febrile, tachycardic, leukocytosis on admission. Negative for influenza, RSV and Covid. Lungs CTA, Abdominal CT unremarkable. - + CVA ttp on admission. none on subsequent exams - per patient, some mild confusion and headache on admission, confusion resolved, but still has mild DUMONT - completed vanc and zosyn x 2 days and ceftriaxone IV x 2 days. Will complete 7 days of cefdinir 300 mg PO BID as outpatient. imaging workup at admission to r/o infection - RUQUS- no hydronephrosis on right. + hepatic steatosis Xray right shoulder - no pain. xr not suggestive of infection - leukocytosis resolved by dispo acute urinary tract infection - systemic symptoms (fever); pyelo is on differential, less likely given lack of CVA or abdominal ttp on reexamination - patient states he is s/p appendectomy. CT abd w/o contrast not suggestive of appendicitis. - dysuria much improved by day of dispo R sided musculoskeletal pain at hip - per exam on 06/25, pain is focally at bone (iliac crest) and not at abdomen - therefore lower suspicion of pyelo or abdominal etiology - considered msk etiologies such as arthritis, sacroilitis, tendonitis, muscle strain - outpatient conservative treatment GERD Chronic. Stable -Continued Omeprazole BPH Chronic -Continued Flomax HLD Chronic. Stable -Continued Atorvastatin HTN Chronic. Elevated currently -Continued Amlodipine 5mg po daily diabetes mellitus Chronic. ISS during admission. Restart home metformin upon dispo gout Chronic. Stable without flare -Continue Allopurinol migraine headache without aura Chronic -Continued Elavil 100mg po qPM Code- Full (2) GERD without esophagitis: (3) BPH loc w urin obs/LUTS: (4) Hyperlipidemia: (5) Hypertension: (6) Diabetes: (7) Gouty arthropathy, unspecified: (8) Migrainous headache without aura: (9) Hip pain, right: Total Time Total Time Spent Total Time Spent (In Minutes): 20 mins Discharge Plan Discharge Items Patient Disposition: Home - Self-Care Reason For Visit: SEPSIS Discharge Diagnosis: complicated UTI Activity: Per Instructions section Non-emergency contact: Primary Care Provider Call non-emergency contact if: you have any medication questions, your pain is not controlled and you have a fever Follow-up/Referrals: Bing Ramos DO [Primary Care Provider] - 07/01/20 3:20 pm () Diet: Regular Addtl Attending Provider Instructions: Hi Mr. Smith, You were admitted to [facility] from 06/23/20-06/26/20 initially for fever and mild confusion. Workup showed that you had a urinary tract infection from e coli bacteria. You were treated with 4 days of IV antibiotics. Please complete 7 days of oral antibiotics with cefdinir 300 mg twice a day starting on 06/27/20, with the last day on 07/03/20. The prescription has been sent to [facility] in [place]. By the day of discharge (06/26/20), you stated that the burning with urination had improved significantly and that you did not have any abdominal pain. You had some tenderness at your hip and right tip of ribcage, but that is most likely from arthritis. Imaging showed gall stones without gallbladder inflammation. It also showed fatty liver which can be followed up with your PCP. Shoulder xray did not suggest infection. Follow up with your PCP (Dr. Ramos) in 1 week. If you develop any new or worsening symptoms including fever, chills, sweats, chest pain, chest pressure, difficulty breathing, uncontrolled nausea/vomiting, rash, wheezing, passing out or nearly passing out, bleeding, black/bloody bowel movements, or other new or concerning symptoms please call your primary care physician, or call 911 for re-evaluation in the emergency department if you are very concerned. Pending Studies at Discharge: No Stand-Alone Forms: My [facility], Smoking Cessation Medications and DC Order Prescriptions: New cefdinir 300 mg capsule 300 mg PO BID 7 Days Qty: 14 RF: 0 Continued gabapentin 300 mg capsule 300 mg PO HS Qty: 90 RF: 1 (DME) BD PrecisionGlide Non-Sterile 25 gauge x 5/8" needle See Dose Instructions .ROUTE .MEDSUPPLY Qty: 100 RF: 0 cyanocobalamin (vitamin B-12) 1,000 mcg/mL solution 1,000 mcg IM MONTHLY Qty: 10 RF: 1 meloxicam 15 mg tablet 15 mg PO HS Qty: 90 RF: 1 allopurinol 300 mg tablet 300 mg PO HS Qty: 90 RF: 1 tamsulosin 0.4 mg capsule 0.4 mg PO HS Qty: 90 RF: 3 bupropion HCl [Wellbutrin SR] 100 mg tablet sustained-release 12 hr 200 mg PO HS Qty: 180 RF: 1 amlodipine 5 mg tablet 5 mg PO PM Qty: 90 RF: 2 cholecalciferol (vitamin D3) 2,000 unit capsule 2,000 units PO HS RF: 0 epinephrine 0.3 mg/0.3 mL auto-injector 0.3 mg IM .COMPLEX PRN (Reason: bronchodilation) Qty: 2 RF: 0 amitriptyline 100 mg tablet 100 mg PO PM RF: 0 sumatriptan succinate [Imitrex] 100 mg tablet 100 mg PO .COMPLEX PRN (Reason: migraine headache) Qty: 27 RF: 0 ibuprofen 200 mg Tablet 400 mg PO Q6H PRN (Reason: Pain) RF: 0 cyclobenzaprine 5 mg tablet 5 mg PO HS PRN (Reason: muscle spasm) RF: 0 atorvastatin 20 mg tablet 20 mg PO PM RF: 0 omeprazole 40 mg capsule,delayed release(DR/EC) 40 mg PO PM RF: 0 metformin 1,000 mg tablet 2,000 mg PO QAM RF: 0 prednisolone acetate 1 % Drops,Suspension 1 drp OPR TID RF: 0 ketorolac 0.5 % Drops 1 drp OPR QID RF: 0 Refresh Relieva 0.5-0.9 % Drops 1 drp OPB BID RF: 0 sodium chloride eye wash,cup 1 drp OPB BID RF: 0 oxycodone 5 mg Tablet 5 - 10 mg PO Q4H PRN (Reason: pain) Qty: 30 RF: 0 multivitamin Tablet 1 tab PO DAILY RF: 0 Discharge Orders: Discharge Order (Routine); Ordered 06/26/20 Ordered By: Al Ferguson Admission Data Admit Date/Time: 06/23/20 06:34 Attending Provider: Carlos Romero Admit Provider: Rupa Serrano Primary Care Provider: Bing Ramos. Other Providers: Rupa Serrano Other Interventions: Discharge Summary Assessment (RN) Last Done: 06/26/20 12:09 Supervising Physician Co-Signing Physician Notes I also saw the patient and confirmed tarango portions of the history and exam. I agree with the impression and plan as noted in the resident documentation. Upon exam this morning, he is out of bed sitting in a chair without complaints. Reports that the right-sided pain he had previously has resolved, even with walking. His dysuria has markedly improved -continues to improve with each urination. Exam 125/79, 88, 20, 36.6, 96% on room air Nontoxic. No acute distress. Heart regular. Lungs clear. Abdomen soft and nontender. Laboratory White blood cell count 5.47, hemoglobin 12.3, platelet count 318. BMP shows sodium 139, potassium 4.2, BUN 15, creatinine 1.07. Impression Sepsis, Urinary tract infection, POA History of BPH with obstruction Hypertension diabetes Plan Patient stable ready for discharge today. He is looking forward to going home. Reviewed signs and symptoms of progressive infection. Reviewed need for follow-up with his primary care physician in 1 to 2 weeks. Medications, including the added antibiotic, reviewed with the patient. Resident Activity Tracking Resident Involvement: Resident Care Provided Care Provided: Adult [facility]
== END 2020-06-26 13:27 | disposition home or self-care (01) ==
LOC: ED 03:10 → SUATTDRO 06:34 → INTOOBSV 06:34 → 2N 06:34

== ENCOUNTER 2021-10-24 11:39 | Observation (INO) ==
--- NOTE | 2021-09-01 21:22 | PAT Medication Instructions ---
Medication Instructions Date of Service September 01, 2021 Home Medications Medication Instructions Recorded epinephrine 0.3 mg/0.3 mL 0.3 mg IM .COMPLEX PRN #2 ea 11/07/19 injection, auto-injector sumatriptan succinate 100 mg 100 mg PO .COMPLEX PRN #27 tab 01/01/21 tablet (Imitrex) cyclobenzaprine 5 mg tablet 5 mg PO HS PRN #90 tab 03/24/21 needle (disp) 25 gauge 25 gauge x #100 ea 04/01/21 5" (BD PrecisionGlide Non-Sterile) hydromorphone 2 mg tablet 2 mg PO Q6H PRN #20 tab 04/15/21 (Dilaudid) cyanocobalamin (vitamin B-12) 1,000 mcg IM MONTHLY #10 ml 05/12/21 1,000 mcg/mL injection solution meloxicam 15 mg tablet 15 mg PO HS #90 tab 06/10/21 bupropion HCl 100 mg tablet 100 mg PO BID #180 tab 06/24/21 tamsulosin 0.4 mg capsule 0.4 mg PO HS #90 cap 07/21/21 metformin 1,000 mg tablet 2,000 mg PO QAM #180 tab 07/24/21 allopurinol 300 mg tablet 300 mg PO HS #90 tab 08/08/21 gabapentin 300 mg capsule 300 mg PO HS #90 cap 08/08/21 cholecalciferol (vitamin D3) 50 mcg (2,000 unit) capsule 2,000 units PO HS ibuprofen 200 mg tablet 400 mg PO Q6H PRN epinephrine 0.3 mg/0.3 mL injection, auto-injector 0.3 mg IM .COMPLEX PRN multivitamin 1 tab PO HS sumatriptan succinate 100 mg tablet (Imitrex) 100 mg PO .COMPLEX PRN cyclobenzaprine 5 mg tablet 5 mg PO HS PRN hydromorphone 2 mg tablet (Dilaudid) 2 mg PO Q6H PRN cyanocobalamin (vitamin B-12) 1,000 mcg/mL injection solution 1,000 mcg IM MONTHLY meloxicam 15 mg tablet 15 mg PO HS bupropion HCl 100 mg tablet 100 mg PO BID tamsulosin 0.4 mg capsule 0.4 mg PO HS metformin 1,000 mg tablet 2,000 mg PO QAM allopurinol 300 mg tablet 300 mg PO HS gabapentin 300 mg capsule 300 mg PO HS amitriptyline 100 mg tablet 100 mg PO HS amlodipine 5 mg tablet 5 mg PO HS finasteride 5 mg tablet 5 mg PO HS fluticasone propionate 50 mcg/actuation nasal spray,suspension (Flonase Allergy Relief) 2 spray INTRANASAL BID PRN simvastatin 20 mg tablet 20 mg PO HS Continue as directed epinephrine 0.3 mg/0.3 mL injection, auto-injector 0.3 mg IM .COMPLEX PRN (if needed) ASK your surgeon for instructions ibuprofen 200 mg tablet 400 mg PO Q6H PRN ASK your prescriber and surgeon amitriptyline 100 mg tablet 100 mg PO HS DO NOT take the morning of surgery cyanocobalamin (vitamin B-12) 1,000 mcg/mL injection solution 1,000 mcg IM MONTHLY metformin 1,000 mg tablet 2,000 mg PO QAM Take morning of surgery With a small sip of water, OTHERWISE NOTHING TO EAT OR DRINK AFTER MIDNIGHT: sumatriptan succinate 100 mg tablet (Imitrex) 100 mg PO .COMPLEX PRN (if needed) hydromorphone 2 mg tablet (Dilaudid) 2 mg PO Q6H PRN (okay to take up to 4 hours prior to surgery if needed) bupropion HCl 100 mg tablet 100 mg PO BID fluticasone propionate 50 mcg/actuation nasal spray,suspension (Flonase Allergy Relief) 2 spray INTRANASAL BID PRN (if needed) Take evening before surgery cholecalciferol (vitamin D3) 50 mcg (2,000 unit) capsule 2,000 units PO HS multivitamin 1 tab PO HS sumatriptan succinate 100 mg tablet (Imitrex) 100 mg PO .COMPLEX PRN (if needed) cyclobenzaprine 5 mg tablet 5 mg PO HS PRN (if needed) hydromorphone 2 mg tablet (Dilaudid) 2 mg PO Q6H PRN (if needed) bupropion HCl 100 mg tablet 100 mg PO BID tamsulosin 0.4 mg capsule 0.4 mg PO HS allopurinol 300 mg tablet 300 mg PO HS gabapentin 300 mg capsule 300 mg PO HS amlodipine 5 mg tablet 5 mg PO HS finasteride 5 mg tablet 5 mg PO HS fluticasone propionate 50 mcg/actuation nasal spray,suspension (Flonase Allergy Relief) 2 spray INTRANASAL BID PRN (if needed) simvastatin 20 mg tablet 20 mg PO HS Other Notes If you have any questions please call us at [phone] or [phone] or [phone] or [phone]
--- NOTE | 2021-09-03 14:19 | Anesthesiology Consultation ---
Date of Service September 03, 2021 Assessment & Plan (1) Encounter for pre-operative examination: Chart Review Chart Review: Acceptable Risk for Surgery (pending routine upcoming PCP appt (09/26/21) and preop Covid testing results ) and Patient seen in Pre Admission Testing - Awaiting routine PCP follow up scheduled 09/26/21 - Check BSG AM DOS Per PAT appt on 09/03/21, patient denies any recent travel or large group activities. No known Covid positive exposures or Covid related symptoms. No known Covid infection in the past 90 days. Pt is vaccinated for Covid. Preop Covid testing scheduled 2-4 days prior to surgery = will await results. Educated on importance of self quarantining, social distancing and wearing mask in public for the patient one week prior to surgery and after Covid testing done History Surgery Operation Date: 10/24/21 11:35 Proposed Procedures p Left Reverse Total Shoulder Arthroplasty - Sd Bingham, Height/Weight Height: 5 ft 11 in Weight: 121.3 kg Allergies Allergy/AdvReac Type Severity Reaction Status Date / Time imipenem Allergy Severe Hives, Verified 08/29/21 10:18 dyspnea (tolerates Cefazolin) latex Allergy Severe Dyspnea, Verified 08/29/21 10:18 swelling of throat Sulfa (Sulfonamide Allergy Severe Dyspnea Verified 08/29/21 10:18 Antibiotics) adhesive tape Allergy Unknown Rash Verified 08/29/21 10:18 Fish Containing Products Allergy Unknown Unknown Verified 08/29/21 10:18 iodine Allergy Unknown Dyspnea Verified 08/29/21 10:18 with contrast dyes (tolerates topical use) moxifloxacin Allergy Unknown Respiratory Verified 08/29/21 10:18 distress, hives peach Allergy Unknown Unknown Verified 08/29/21 10:18 mustard Allergy Unknown Verified 08/29/21 10:18 shellfish derived Allergy Unknown Verified 08/29/21 10:18 watermelon Allergy Unknown Verified 08/29/21 10:18 Primaxin SOLR Allergy Unknown Dyspnea Uncoded 08/29/21 10:18 Medications Home Medications Medication Instructions Recorded Confirmed Last Taken cholecalciferol (vitamin D3) 50 2,000 units PO HS cap 11/11/18 08/29/21 03/05/21 20:00 mcg (2,000 unit) capsule ibuprofen 200 mg tablet 400 mg PO Q6H PRN 02/22/19 08/29/21 03/05/21 20:00 epinephrine 0.3 mg/0.3 mL 0.3 mg IM .COMPLEX PRN #2 ea 11/07/19 08/29/21 Unknown injection, auto-injector multivitamin 1 tab PO HS 06/23/20 08/29/21 03/05/21 20:00 sumatriptan succinate 100 mg 100 mg PO .COMPLEX PRN #27 tab 01/01/21 08/29/21 Unknown tablet (Imitrex) cyclobenzaprine 5 mg tablet 5 mg PO HS PRN #90 tab 03/24/21 08/29/21 Unknown needle (disp) 25 gauge 25 gauge x #100 ea 04/01/21 08/12/21 Unknown 5/8" (BD PrecisionGlide Non-Sterile) hydromorphone 2 mg tablet 2 mg PO Q6H PRN #20 tab 04/15/21 08/29/21 Unknown (Dilaudid) cyanocobalamin (vitamin B-12) 1,000 mcg IM MONTHLY #10 ml 05/12/21 08/29/21 Unknown 1,000 mcg/mL injection solution meloxicam 15 mg tablet 15 mg PO HS #90 tab 06/10/21 08/29/21 Unknown bupropion HCl 100 mg tablet 100 mg PO BID #180 tab 06/24/21 08/29/21 Unknown tamsulosin 0.4 mg capsule 0.4 mg PO HS #90 cap 07/21/21 08/29/21 Unknown metformin 1,000 mg tablet 2,000 mg PO QAM #180 tab 07/24/21 08/29/21 Unknown allopurinol 300 mg tablet 300 mg PO HS #90 tab 08/08/21 08/29/21 Unknown gabapentin 300 mg capsule 300 mg PO HS #90 cap 08/08/21 08/29/21 Unknown amitriptyline 100 mg tablet 100 mg PO HS 08/29/21 08/29/21 Unknown amlodipine 5 mg tablet 5 mg PO HS 08/29/21 08/29/21 Unknown finasteride 5 mg tablet 5 mg PO HS 08/29/21 08/29/21 Unknown fluticasone propionate 50 2 spray INTRANASAL BID PRN 08/29/21 08/29/21 Unknown mcg/actuation nasal spray,suspension (Flonase Allergy Relief) simvastatin 20 mg tablet 20 mg PO HS 08/29/21 08/29/21 Unknown Past Medical History Medical History BPH loc w urin obs/LUTS Depression Gout No recent issues Hyperlipidemia Hypertension Prediabetes Reason for Metformin Sleep apnea No device Tinnitus 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 Exercise / Class Metabolic Activity II 4-5 Yardwork/Stairs/Walk up hill (one flight of stairs - no chest pain or SOB ) Past Family History Family History Father Family history of diabetes mellitus Kidney stones Other No family history of adverse response to anesthesia Denies family history of Ovarian cancer Prostate cancer Myocardial infarction Breast cancer Colorectal cancer Past Surgical History Surgical History 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) right eye (03/2020) History of appendectomy History of arthroplasty of left knee (2009) History of arthroscopic knee surgery (2002) R knee, ACL repair History of arthroscopic surgery of elbow Left History of carpal tunnel surgery R/L History of cataract surgery R/L History of neck surgery (11/2010) Removal anterior cervical instrumentation C4-C5, exploration of fusion, anterior cervical diskectomy with bilateral foraminotomy C3-C4, anterior cervical fusion C3-C4 > ROM WNL History of partial colectomy (1984) secondary to diverticulitis History of total right hip arthroplasty Hx of lumbosacral spine surgery (03/2019) L4-S1 decompression/fusion (03/17/19): Grade view 1, MAC#3, ETT 8.0 at [facility] Hx of thumb surgery left for cyst removal Nausea and vomiting after administration of anesthetic agent S/P arthroscopy of shoulder (1999) Right Left shoulder arthroscopy/RCR (03/06/21): LMA#5 + PNB at [facility]. No issues per post-op anesthesia progress note. S/P gastric bypass (01/2004) Radha en Y S/p reverse total shoulder arthroplasty (05/31/20) Right S/P rotator cuff repair (2000) Right/Left S/P tonsillectomy Past Anesthesia History No Hx of Anesthesia Complications (with exception to PONV ) and No Family Hx of Anesthesia Complications History of PONV No Hx of Motion Sickness and History of PONV (improved when pre-treated with IV anti nausea medication ) Social History Smoking Status: Former smoker Do You Dip or Chew Tobacco: No Smoking End Date: 1984 Hx Alcohol Use: No Hx Substance Use: No substance use type: does not use Review of Systems Patient denies chest pain, shortness of breath, dyspnea on exertion, reflux, cough, wheezing, palpitations. No hx of seizures, stroke, SC. No hx of blood clots or blood transfusions Physical Exam Vital Signs VITALS BP 130/70 P 89 TEMP 98.0 SP02 94% RESP 16 Constitutional no acute distress ENMT Mouth: no TMJ clicking Thyromental Distance: > or= 3.5 Finger Breadths (3.5) Mallampati Class: III Top partial denture Missing molar on bottom Neck + limited neck extension (moderate ) Respiratory normal respiratory effort; no respiratory distress Auscultation: lungs clear to auscultation bilaterally; no wheezes Cardiovascular Rate/Rhythm: regular rate and regular rhythm Heart Sounds: no murmur Vessels: no carotid bruit Musculoskeletal Spine: no pain with cervical ROM Extremities: extremities normal to inspection Psychiatric Orientation: alert Lab Results Anesthesia Preop Results Results Anesthesia Widget: WBC 6.64 K/uL (4.8-10.8) 09/03/21 Hgb 13.3 g/dL (14.0-18.0) L 09/03/21 Hct 38.8 % (42-52) L 09/03/21 Plt 255 K/uL (130-400) 09/03/21 Na 140 mmol/L (136-145) 09/03/21 K 4.1 mmol/L (3.5-5.1) 09/03/21 Cl 108 mmol/L (98-107) H 09/03/21 CO2 22 mmol/L (21-32) 09/03/21 BUN 24 mg/dl (6-23) H 09/03/21 Creat 1.09 mg/dl (0.6-1.4) 09/03/21 Glucose Level 109 mg/dl (70-99(Fasting)) H 09/03/21 PT 10.0 Seconds (9.0-12.0) 09/03/21 PTT 24.4 Seconds (21.0-31.0) 09/03/21 INR 0.9 (0.9-1.1) 09/03/21 HA1c 6.7 % (4.5-5.6) H 09/03/21 Blood Type A Positive 09/03/21 Antibody Screen NEGATIVE 09/03/21 Testing Electrocardiogram Date: 09/03/21 Findings: + NSR @ (90bpm ) Normal EKG per cardio Chest X-Ray Date: 09/03/21 Findings: + NAD Echocardiogram Date: 04/24/19 EF: 55-60% LV Function: normal RWMA: + none Other Findings: + LVH (borderline/concentric ) and + diastolic dysfunction (Grade I ) Valvular Disease: + no significant valvular disease Other Testing Brain MRI 05/21/20= No acute intracranial abnormality
--- NOTE | 2021-10-23 09:03 | History & Physical Report ---
Date of Service October 23, 2021 Assessment & Plan (1) Rotator cuff arthropathy of left shoulder: We will proceed with a left reverse shoulder arthroplasty. Postoperatively he will be kept overnight in the hospital for postoperative medical management. He plans to use energy physical therapy upon discharge. History of Present Illness Chief Complaint: Chronic retracted rotator cuff tear of the left shoulder. Primary Care Provider: Bing Ramos DO Ed is a pleasant 71-year-old male who I did a right reverse shoulder arthroplasty on a year and a half ago. He is done very well with that. He was then having some left shoulder pain. MRI showed a repairable rotator cuff tear. He underwent a rotator cuff repair 8 months ago. Unfortunately has not done well. He has not been able to regain his range of motion. Follow-up MRI showed massive retear of the rotator cuff. After failing conservative treatment, he elected proceed with a left reverse shoulder arthroplasty.. Allergies Allergy/AdvReac Type Severity Reaction Status Date / Time imipenem Allergy Severe Hives, Verified 10/20/21 13:38 dyspnea (tolerates Cefazolin) latex Allergy Severe Dyspnea, Verified 10/20/21 13:38 swelling of throat Sulfa (Sulfonamide Allergy Severe Dyspnea Verified 10/20/21 13:38 Antibiotics) adhesive tape Allergy Unknown Rash Verified 10/20/21 13:38 Fish Containing Products Allergy Unknown Unknown Verified 10/20/21 13:38 iodine Allergy Unknown Dyspnea Verified 10/20/21 13:38 with contrast dyes (tolerates topical use) moxifloxacin Allergy Unknown Respiratory Verified 10/20/21 13:38 distress, hives peach Allergy Unknown Unknown Verified 10/20/21 13:38 mustard Allergy Unknown Verified 10/20/21 13:38 shellfish derived Allergy Unknown Verified 10/20/21 13:38 watermelon Allergy Unknown Verified 10/20/21 13:38 Primaxin SOLR Allergy Unknown Dyspnea Uncoded 10/20/21 13:38 Home Medications Medication Instructions Recorded Confirmed Type cholecalciferol (vitamin D3) 50 2,000 units PO HS 11/11/18 10/20/21 History mcg (2,000 unit) capsule ibuprofen 200 mg tablet 400 mg PO Q6H PRN Pain 02/22/19 10/20/21 History multivitamin 1 tab PO HS 06/23/20 10/20/21 History sumatriptan succinate 100 mg 100 mg PO .COMPLEX PRN migraine 01/01/21 10/20/21 Rx tablet (Imitrex) headache #27 tabs needle (disp) 25 gauge 25 gauge x #100 ea 04/01/21 10/20/21 Rx 5/8" (BD PrecisionGlide Non-Sterile) hydromorphone 2 mg tablet 2 mg PO Q6H PRN pain #20 tabs 04/15/21 10/20/21 Rx (Dilaudid) cyanocobalamin (vitamin B-12) 1,000 mcg IM MONTHLY #10 mL 05/12/21 10/20/21 Rx 1,000 mcg/mL injection solution meloxicam 15 mg tablet 15 mg PO HS #90 tabs 06/10/21 10/20/21 Rx bupropion HCl 100 mg tablet 100 mg PO BID #180 tabs 06/24/21 10/20/21 Rx tamsulosin 0.4 mg capsule 0.4 mg PO HS #90 caps 07/21/21 10/20/21 Rx metformin 1,000 mg tablet 2,000 mg PO QAM #180 tabs 07/24/21 10/20/21 Rx allopurinol 300 mg tablet 300 mg PO HS #90 tabs 08/08/21 10/20/21 Rx gabapentin 300 mg capsule 300 mg PO HS #90 caps 08/08/21 10/20/21 Rx amitriptyline 100 mg tablet 100 mg PO HS 08/29/21 10/20/21 History amlodipine 5 mg tablet 5 mg PO HS 08/29/21 10/20/21 History finasteride 5 mg tablet 5 mg PO HS 08/29/21 10/20/21 History simvastatin 20 mg tablet 20 mg PO HS 08/29/21 10/20/21 History fluticasone propionate 50 2 spray intranasal BID PRN allergy 09/10/21 10/20/21 Rx mcg/actuation nasal symptoms #48 grams spray,suspension (Flonase Allergy Relief) cyclobenzaprine 5 mg tablet 5 mg PO HS PRN muscle spasm #90 09/25/21 10/20/21 Rx tabs epinephrine 0.3 mg/0.3 mL 0.3 mg (0.3 mL) IM .COMPLEX PRN 09/26/21 10/20/21 Rx injection, auto-injector bronchodilation #2 ea ondansetron 4 mg disintegrating 4 mg PO Q8H PRN nausea and 10/09/21 10/20/21 Rx tablet vomiting #30 tabs Past Med/Surg History Medical History BPH loc w urin obs/LUTS Depression Diabetes Per PCP records (pt denies) On Metformin Dysfunction of right eustachian tube Gout No recent issues Hyperlipidemia Hypertension Sleep apnea No device Tinnitus 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 Surgical History 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) right eye (03/2020) History of appendectomy History of arthroplasty of left knee (2009) History of arthroscopic knee surgery (2002) R knee, ACL repair History of arthroscopic surgery of elbow Left History of carpal tunnel surgery R/L History of cataract surgery R/L History of neck surgery (11/2010) Removal anterior cervical instrumentation C4-C5, exploration of fusion, anterior cervical diskectomy with bilateral foraminotomy C3-C4, anterior cervical fusion C3-C4 > ROM WNL History of partial colectomy (1984) secondary to diverticulitis History of total right hip arthroplasty Hx of lumbosacral spine surgery (03/2019) L4-S1 decompression/fusion (03/17/19): Grade view 1, MAC#3, ETT 8.0 at [facility] Hx of thumb surgery left for cyst removal Nausea and vomiting after administration of anesthetic agent S/P arthroscopy of shoulder (1999) Right Left shoulder arthroscopy/RCR (03/06/21): LMA#5 + PNB at [facility]. No issues per post-op anesthesia progress note. S/P gastric bypass (01/2004) Radha en Y S/p reverse total shoulder arthroplasty (05/31/20) Right S/P rotator cuff repair (2000) Right/Left S/P tonsillectomy Family History Father Family history of diabetes mellitus Kidney stones Other No family history of adverse response to anesthesia Denies family history of Ovarian cancer Prostate cancer Myocardial infarction Breast cancer Colorectal cancer Social History Smoking Status: Never smoker Tobacco Type: Cigarettes packs per day: 3; Second Hand Exposure: No; Hx Alcohol Use: No Hx Substance Use: No Preferred Language: Burmese Communication Ability: Effective Visual Impairment: Limited Hearing Ability: Normal 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 (self employed catering, now closed) Feels Safe at Home: Yes Childhood Exposure to Second-Hand Smoke: Yes caffeine: Yes (Coffee x 2 per day. ) during the past year weight has: remained stable Dental Care, Regularly: Yes Physical Activity Frequency: Daily Seatbelt Use: always Sunscreen Use: Yes Assistive Devices: Denture - Upper and Glasses Review of Systems All systems reviewed & are unremarkable except as noted in HPI & below. Physical Exam On physical examination of the left shoulder, he has very limited range of motion. He has weakness throughout. He has pain in the subacromial space.. Constitutional WD/WN, vitals as above Eyes PERRL, conjunctivae normal, anicteric sclerae ENMT external ear and nose normal, oropharynx normal Neck trachea midline, no thyromegaly Respiratory normal respiratory effort Cardiovascular RRR, no murmur, no edema Gastrointestinal (Abdomen) normal bowel sounds, soft, nontender, no hepatosplenomegaly Psychiatric A+Ox3, euthymic affect Results & Data Results & Data Laboratory Results . Diagnostic Findings X-rays of the left shoulder do show superior migration of the humeral head on the glenoid. MRI of the left shoulder shows a chronic retracted rotator cuff tear. The cuff is retracted back to the level of the glenoid and there is significant fat atrophy of the muscle bellies.. PG Care Time/CCT Total # of Minutes Spent Total Time Spent with Patient: Total time spent is greater than 50% in coordination of care (as documented) at patient's floor/unit and/or counseling patient: Coding Level of Care Code None Diagnoses Rotator cuff arthropathy of left shoulder M12.812
[~2021-10-24 11:39] MED LIST changes: +GABAPENTIN 300 MG CAP PO SCH; -GABAPENTIN 600 MG DOSE PO SCH; +Ketorolac (*for OR use only*) 30 MG, dexAMETHasone 4 MG, KETAMINE HCL (**OR use only) 1... INFIL SCH; -ROPIVACAINE 0.5% HCL/PF 150 MG, BUPIVACAINE 0.75% MPF 20 ML, EPINEPHrine 30MG/30ML (OR ... INSTIL SCH
[2021-10-24] MEDS ORDERED: ATROPINE SULFATE 0.1 MG/ML 10ML SYR IV PRN (11:51)
[2021-10-24] MEDS ORDERED: MEPERIDINE HCL 25 MG/ML CARP/VIAL IV PRN (11:51)
[2021-10-24] MEDS ORDERED: LABETALOL HCL IV 5 MG/ML 20ML IV PRN (11:51)
[2021-10-24] MEDS ORDERED: ePHEDrine sulfate 50 MG/ML AMP IV PRN (11:51)
[2021-10-24] MEDS ORDERED: ONDANSETRON INJ 2 MG/ML 2 ML VIAL IV PRN ×2 (11:51→17:14)
[2021-10-24] MEDS ORDERED: HYDROmorphone INJ 1 MG/ML SYRINGE IV PRN (11:51)
[2021-10-24] MEDS ORDERED: PHENYLEPHRINE 100MCG/ML 5ML SYR IV PRN (11:51)
--- NOTE | 2021-10-24 13:00 | History & Physical Bridge Note ---
Date of Service October 24, 2021 History & Physical Bridge Note I have examined the patient, reviewed the History & Physical and in the interval since the performance of the History & Physical I have noted the following changes of clinical significance: no changes noted
[2021-10-24] MEDS ORDERED: fentaNYL citrate 100 MCG/2 ML VIAL ONE (13:33)
[2021-10-24] MEDS ORDERED: MIDAZOLAM HCL 1 MG/ML 2ML VIAL ONE (13:33)
[2021-10-24] MEDS ORDERED: ORTHO JOINT ANESTHETIC ONE (13:36)
[2021-10-24] MEDS ORDERED: DEXAMETHASONE SOD INJ 4 MG/ML VIAL ONE (14:49)
[2021-10-24] MEDS ORDERED: LIDOCAINE 2% MPF LOCAL 5 ML VIAL INFIL ONE (14:49)
[2021-10-24] MEDS ORDERED: ONDANSETRON INJ 2 MG/ML 2 ML VIAL ONE (14:49)
[2021-10-24] MEDS ORDERED: PROPOFOL IV EMULSION 10 MG/ML 20 ML VIAL IV ONE (14:49)
--- NOTE | 2021-10-24 15:21 | Operative Report ---
PG Post Operative Report Pre & Post Diagnosis Operation Date: 10/24/21 14:20 Preoperative diagnosis: Cuff tear arthropathy of the left shoulder Postoperative diagnosis: Cuff tear arthropathy of the left shoulder I identified the patient and participated in the time-out.: Yes Procedure Operation Date: 10/24/21 14:20 Left reverse shoulder arthroplasty Surgeon Sd Bingham DO Hose Operator Jassi Brunner PA-C Estimated Blood Loss 250 Findings Consistent with Post-Op Diagnosis Specimens Left humeral head Description of Procedure Implants used: I used a [employer]omet Comprehensive reverse total shoulder arthroplasty system with a size 11 press fit micro humeral stem, a standard humeral tray and a standard humeral bearing, a 25 mm baseplate with a 6.5 mm central screw and superior and inferior locking screws, and a size 40 mm eccentric glenosphere. Ed arrived at [facility] for the above procedure. He was seen in the preoperative holding area and the operative extremity was identified and signed. He was given a preoperative antibiotic, TXA, and an interscalene nerve block. He was taken back to the operating room, laid on table in supine position, and put under general anesthesia. He was then put into the beachchair position. The shoulder was then prepped and draped in sterile fashion. A timeout was done and the patient and the operative extremity was properly identified. A deltopectoral approach was used. Dissection was taken down through the fascia and the deltoid was retracted laterally and the conjoined tendon was retracted medially. The anterior shoulder was exposed. The biceps tendon was traumatically tenotomized. The subscapularis was then directly released off the lesser tuberosity with a peel technique. The inferior capsule was released and the humeral head was dislocated. A canal finding reamer was sent down the center of the humeral canal. Sequential reaming up to a size 11 reamer was done. Off that reamer, a proximal humeral resection guide was placed. The proximal humerus was resected at 135 of inclination and 25 of retroversion. Osteophytes were then removed and the glenoid was exposed. Time was spent doing a complete capsular and labral release. The glenoid guide was then placed in the inferior aspect of the glenoid. A 3.2 mm Steinmann pin was then placed into the glenoid vault at 10 of inclination. The glenoid baseplate was then reamed. The final size 25 mm baseplate was then impacted in the place. A 6.5 mm central screw was then placed followed by superior and inferior locking screws. A 40 mm eccentric glenosphere was then impacted into place. Surrounding soft tissues were then injected with 100 cc an orthopedic pain control cocktail. The proximal humerus was then exposed. Sequential broaching of the humerus up to a size 11 broach was done. Off that broach a standard humeral tray was trialed. The shoulder was then reduced, brought through a full range of motion, and felt to be stable. The shoulder was then dislocated and the broach was removed. The final size 11 micro press-fit humeral stem was then impacted into place. A standard humeral bearing was then snapped onto a standard humeral tray. The humeral tray was then impacted onto the humeral stem. The shoulder was once again reduced, brought through a full range of motion, and felt to be stable. The subscapularis was retracted and poor quality. The subscapularis was not repaired. A dilute betadyne lavage was then done for 3 minutes. The joint was then irrigated with normal saline solution. Hemostasis was obtained. The interval was closed with 2-0 Vicryl suture. The skin was then closed with 2-0 Vicryl and wendie. A Silverlon dressing was placed and the arm was rested in a regular arm sling. He was then extubated and transferred to a hospital bed. He taken to the postanesthesia care unit in stable condition. He tolerated the procedure well. Jassi Brunner PA-C, was present for the entire procedure. He was critical for patient positioning, prepping, draping, retraction exposure, wound closure and application of sterile dressing. I attest to the content of the Intraoperative Record and any orders documented therein. Any exceptions are noted below.
--- NOTE | 2021-10-24 15:26 | Operative Report ---
Post Operative Report Pre & Post Diagnosis Operation Date: 10/24/21 14:20 <No data on this case meets the specified criteria> I identified the patient and participated in the time-out.: Yes Procedure Operation Date: 10/24/21 14:20 <No data on this case meets the specified criteria> Surgeon Yulissa Bingham MD Desulfurizer Hand Jassi Brunner PA-C, Meche Dudley MD Estimated Blood Loss 250 Findings Consistent with Post-Op Diagnosis Consistent with post op diagnosis Specimens No specimens Description of Procedure I participated in prepping dressing and assisted Dr. Bingham during the procedure. Please see Dr. Bingham note. I attest to the content of the Intraoperative Record and any orders documented therein. Any exceptions are noted below.
[2021-10-24] MEDS: fentaNYL citrate 100 MCG/2 ML VIAL IV PRN ×3 (16:12→16:23)
--- NOTE | 2021-10-24 16:41 | Anesthesiology Progress Note ---
Date of Service October 24, 2021 Anesthesia Post Procedure Vital Signs Vital Signs: Temp Pulse Pulse Resp BP Pulse Ox O2 Del Method 10/24/21 16:30 36.5 C 78 12 147/75 H 95 Nasal Cannula 10/24/21 16:20 78 18 148/83 H 98 Nasal Cannula 10/24/21 16:10 81 13 153/73 H 96 Nasal Cannula 10/24/21 16:00 80 16 149/81 H 97 Oxymask 10/24/21 15:50 79 15 150/82 H 95 Oxymask 10/24/21 15:41 36.1 C L 84 14 150/82 H 95 Oxymask 10/24/21 12:25 36.8 C 91 H 20 170/78 H 95 Room Air O2 Flow Rate 10/24/21 16:30 2 10/24/21 16:20 4 10/24/21 16:10 4 10/24/21 16:00 5 10/24/21 15:50 5 10/24/21 15:41 5 10/24/21 12:25 Pain Intensity Left Shoulder: Pain Intensity: 4 Transfer of Care Handoff Completed per policy Notes Mental Status: alert / awake / arousable and participated in evaluation Patient Amnestic to Procedure: Yes Nausea / Vomiting: adequately controlled Pain: adequately controlled Airway Patency, RR, SpO2: stable & adequate BP & HR: stable & adequate Hydration State: stable & adequate Anesthetic Complications: no major complications apparent and Pt Satisfied with anesthetic care
[2021-10-24] MEDS ORDERED: METOCLOPRAMIDE HCL INJ 5 MG/ML 2 ML VIAL IV PRN (17:14)
[2021-10-24] MEDS ORDERED: SUMAtriptan succinate 100 MG TAB PO PRN (17:14)
[2021-10-24] MEDS ORDERED: EPINEPHrine ADULT AUTO-INJECT 0.3 MG SYR IM PRN (17:14)
[2021-10-24] MEDS ORDERED: bisacodyL 10 MG SUPP PR PRN (17:14)
[2021-10-24] MEDS ORDERED: PHARMACY GLYCEMIC MGMT CONSULT PRN (17:14)
[2021-10-24] MEDS ORDERED: MAGNESIUM HYDROXIDE SUSP 30 ML UDC PO PRN (17:14)
[2021-10-24] MEDS ORDERED: HYDROmorphone INJ 0.5 MG/0.5 ML SYR IV PRN (17:14)
[2021-10-24] MEDS ORDERED: FLUTICASONE PROPIONATE NA SPR 16 GM BTL PRN (17:14)
[2021-10-24] MEDS ORDERED: NALOXONE HCL 0.4 MG/1 ML VIAL/CARP IV PRN (17:14)
[2021-10-24] MEDS: KETOROLAC TROMETHAMINE 15 MG/ML VIAL IV SCH (17:42)
[2021-10-24] MEDS: SODIUM CHLORIDE 0.9% 1000ML 1,000 ML IV SCH (17:50)
[2021-10-24] MEDS: INSULIN ASPART PER UNIT SC SCH ×2 (18:13→21:25)
[2021-10-24] MEDS ORDERED: DEXTROSE 50% 50 ML SYRINGE IV PRN (18:15)
[2021-10-24] MEDS ORDERED: CARBOHYDRATES FOR HYPOGLYCEMIA PO PRN (18:15)
[2021-10-24] MEDS ORDERED: GLUCAGON FOR INJ 1 MG VIAL IM PRN (18:15)
[2021-10-24] MEDS ORDERED: GLUCOSE 10 TAB/TUBE PO PRN (18:15)
[2021-10-24] MEDS ORDERED: GLUCOSE 40% GEL 15 GM TUBE PO PRN (18:15)
[2021-10-24] MEDS: DOCUSATE SODIUM 100 MG CAP PO SCH (20:32)
[2021-10-24] MEDS: buPROPion HCl 100 MG TABLET PO SCH (20:33)
[2021-10-24] MEDS ORDERED: allopurinoL 300 MG TAB PO SCH (21:00)
[2021-10-24] MEDS ORDERED: FINASTERIDE 5 MG TAB PO SCH (21:00)
[2021-10-24] MEDS ORDERED: SENNA 8.6 MG TAB PO SCH (21:00)
[2021-10-24] MEDS ORDERED: SIMVASTATIN 20 MG TAB PO SCH (21:00)
[2021-10-24] MEDS ORDERED: AMITRIPTYLINE HCL 100 MG TAB PO SCH (21:00)
[2021-10-24] MEDS ORDERED: amLODIPine BESYLATE 5 MG TAB PO SCH (21:00)
[2021-10-24] MEDS ORDERED: CHOLECALCIFEROL 1,000 UNITS 25 MCG TAB PO SCH (21:00)
[2021-10-24] MEDS ORDERED: TAMSULOSIN HCL 0.4 MG CAP PO SCH (21:00)
[2021-10-24] MEDS: ceFAZolin 2000MG 2,000 MG/15 ML SYR IV SCH (21:24)
[2021-10-24] MEDS: ACETAMINOPHEN 500 MG TAB PO SCH (21:25)
--- NOTE | 2021-10-24 22:13 | XRay Report ---
LEFT SHOULDER 2 VIEWS CLINICAL HISTORY: Postoperative examination. FINDINGS: 2 portable views of the left shoulder are compared to study dated 12/20/2020. The skeletal s tructures are osteopenic. A left shoulder arthroplasty is in near-anatomic alignment. No acute fractu re is seen. Skin clips, soft tissue swelling, and subcutaneous gas overlying the left shoulder are ex pected postoperative changes. Productive degenerative change is noted at the acromioclavicular joint. The left lung parenchyma is clear as imaged. IMPRESSION: Expected postoperative findings status post left shoulder arthroplasty. No fracture is se en. Electronically signed by: Navi Vazquez M.D. 10/24/2021 10:11 PM
[2021-10-25] MEDS: KETOROLAC TROMETHAMINE 15 MG/ML VIAL IV SCH ×2 (00:09→05:30)
[2021-10-25] MEDS: oxyCODONE HCL IR 5 MG TAB (IMMEDIATE RELEASE) PO PRN ×2 (02:14→11:23)
[2021-10-25] MEDS: SODIUM CHLORIDE 0.9% 1000ML 1,000 ML IV SCH (03:39)
[2021-10-25] MEDS: ACETAMINOPHEN 500 MG TAB PO SCH (05:27)
[2021-10-25] MEDS: ceFAZolin 2000MG 2,000 MG/15 ML SYR IV SCH (05:30)
--- NOTE | 2021-10-25 08:08 | Orthopedic Progress Note ---
Date of Service October 25, 2021 Assessment & Plan (1) Status post reverse total replacement of left shoulder: Overall he is doing fairly well. Is not having too much pain in the left shoulder. We will reinforce the dressing. He will be seen by physical therapy today for ambulation and range of motion exercises. He can be discharged home later today. He will follow-up with orthopedics in 2 weeks. Subjective Ed was seen and examined at bedside this morning. Overall is doing fairly well. He had a little bit of drainage from his dressing last night. He is not having much pain. He has no complaints.. Review of Systems All systems reviewed & are unremarkable except as noted in HPI & below. Physical Exam On physical examination of the left shoulder, the dressing has been reinforced. He still has trouble moving his hand and his wrist, the nerve block is still in effect.. Results & Data Results & Data Laboratory Results . Diagnostic Findings Postoperative x-rays of the left shoulder show the prosthesis to be in anatomic alignment without any evidence of fracture, desiccation, or loosening. PG Care Time/CCT Total # of Minutes Spent Total Time Spent with Patient: Total time spent is greater than 50% in coordination of care (as documented) at patient's floor/unit and/or counseling patient: Coding Level of Care Code 76675 Post Operative Follow-Up Diagnoses Status post reverse total replacement of left shoulder Z96.612
--- NOTE | 2021-10-25 08:09 | Discharge Summary ---
Date of Service October 25, 2021 Admission HPI (Per Admitting) Ed is a pleasant 71-year-old male who I did a right reverse shoulder arthroplasty on a year and a half ago. He is done very well with that. He was then having some left shoulder pain. MRI showed a repairable rotator cuff tear. He underwent a rotator cuff repair 8 months ago. Unfortunately has not done well. He has not been able to regain his range of motion. Follow-up MRI showed massive retear of the rotator cuff. After failing conservative treatment, he elected proceed with a left reverse shoulder arthroplasty.. Admission Exam (Per Admitting) On physical examination of the left shoulder, he has very limited range of motion. He has weakness throughout. He has pain in the subacromial space.. Principal Diagnosis Same as "Discharge Diagnosis" noted below under Discharge Instructions. Discharge Exam On physical examination of the left shoulder, the dressing has been reinforced. He still has trouble moving his hand and his wrist, the nerve block is still in effect.. Discharge Data Procedures Performed Operation Date: 10/24/21 14:20 Actual Procedures p Left Reverse Total Shoulder Arthroplasty(Left) - Sd Bingham DO Ordered Studies 10/24/21 05:00 US - OR guided needle placemen Routine Hospital Course (1) Status post reverse total replacement of left shoulder: On October 24, 2021 Ed arrived at [facility] and underwent a left reverse shoulder replacement without complication. He had a general anesthetic and a left interscalene nerve block. Postoperatively he was placed in a sling and transferred to the general orthopedic floors. His hospital course was uneventful. On postop day #1, his vital signs were stable and his pain was well controlled. He was able to participate well with physical therapy doing ambulation and range of motion exercises. He was then discharged home. He will follow-up with orthopedics in 2 weeks. PG Care Time/CCT Total # of Minutes Spent Total Time Spent with Patient: Total time spent is greater than 50% in coordination of care (as documented) at patient's floor/unit and/or counseling patient: Discharge Plan Discharge Items Patient Disposition: Home - Home Health Services Reason For Visit: Left Shoulder Degenerative Joint Disease Discharge Diagnosis: Left reverse shoulder replacement Activity: Resume your previous activity Non-emergency contact: Surgeon Call non-emergency contact if: your wound has increased redness and your wound has increased drainage Follow-up/Referrals: Bing Ramos DO [Primary Care Provider] - Diet: Regular Addtl Attending Provider Instructions: Activity and Therapy Recommendations: * If you are using [facility] then therapy will be provided at your home until they feel you have accomplished all of your goals. * If you are using [facility] then Physical Therapy will be provided until they feel you are ready to start Outpatient Physical Therapy. * If you are not using home therapy then Outpatient Physical Therapy should start about 3-5 days from your day of surgery. Therapy will last about 8-12 weeks * Wear your sling for 3 weeks, unless otherwise instructed. You may remove your sling to shower and to dress, but otherwise, you should be in your sling at all times, including while sleeping * The shoulder replacement is very stable and you can use your hand while in the sling * You were shown a series of exercises in the hospital. Do these exercises daily including the exercises you were shown in physical therapy. Medications: * Narcotic You will likely be sent home from the hospital with a prescription for the narcotic pain medication that worked best throughout your stay. * Other medications may be prescribed for specific circumstances. If you have any questions, please call the office at . * Resume previous home medications unless otherwise instructed Dressing Care: Leave the Silverlon dressing in place for 7 days. After 7 days you may remove the dressing. If the incision is not draining then you may leave the wendie open to air. If there is a little bit of drainage or if the wendie are getting stuck on your clothing then cover the incision with a dry dressing. The wendie will be removed at your 2 week follow-up appointment. Showering: You may shower with the Silverlon dressing in place. Do not let the shower spray hit the dressing directly. Pat the Silverlon dressing dry. If the dressing becomes wet underneath, then simply remove the dressing. Keep the incision dry until you are 7 days out from the day of surgery. After 7 days you may remove the Silverlon dressing and shower with the wendie exposed. Let soapy water run over the wendie and pat them dry. Do not scrub or soak the incision. Things To Watch For: * Drainage from the incision site that occurs more than one week after your surgery. * Increased redness at the incision site. * Fever above 102 degrees Fahrenheit. * Unusual chest pain or shortness of breath. * Call [facility] at with any of the above problems Follow-Up Visit: Follow-up with Dr. Bingham's PA (Sd Palumbo) 2-3 weeks after your day of surgery. He will remove your wendie and answer any questions. If you have any additional questions or concerns, Dr Bingham is usually in the office at the same time and will be available An appointment was probably scheduled when you signed-up for surgery in the office. If you have any questions call More detailed instructions as well as Frequently Asked Questions were provided in a folder by our office when you signed-up for surgery. Please review these instructions when you get home. If you have any further questions or concerns, please feel free to call the office at [phone] Pending Studies at Discharge: No Stand-Alone Forms: My [facility] Medications and DC Order Prescriptions: Continued (DME) BD PrecisionGlide Non-Sterile 25 gauge x 5/8" needle See Dose Instructions .ROUTE .MEDSUPPLY Qty: 100 0RF Rx Instructions: As directed cyanocobalamin (vitamin B-12) 1,000 mcg/mL solution 1,000 mcg IM MONTHLY Qty: 10 1RF meloxicam 15 mg tablet 15 mg PO HS Qty: 90 1RF bupropion HCl 100 mg tablet 100 mg PO BID Qty: 180 1RF metformin 1,000 mg tablet 2,000 mg PO QAM Qty: 180 1RF Rx Instructions: 2,000 MG PO daily; gabapentin 300 mg capsule 300 mg PO HS Qty: 90 1RF allopurinol 300 mg tablet 300 mg PO HS Qty: 90 1RF fluticasone propionate [Flonase Allergy Relief] 50 mcg/actuation spray,suspension 2 spray intranasal BID PRN (Reason: allergy symptoms) Qty: 48 0RF Rx Instructions: administer into each nostril cyclobenzaprine 5 mg tablet 5 mg PO HS PRN (Reason: muscle spasm) Qty: 90 1RF cholecalciferol (vitamin D3) 2,000 unit capsule 2,000 units PO HS sumatriptan succinate [Imitrex] 100 mg tablet 100 mg PO .COMPLEX PRN (Reason: migraine headache) Qty: 27 0RF Rx Instructions: 100 mg PO PRN migraine, may repeat after 2 hours prn epinephrine 0.3 mg/0.3 mL auto-injector 0.3 mg IM .COMPLEX PRN (Reason: bronchodilation) Qty: 2 0RF Rx Instructions: 0.3 mg IM use as directed PRN; until response ibuprofen 200 mg Tablet 400 mg PO Q6H PRN (Reason: Pain) multivitamin Tablet 1 tab PO HS amlodipine 5 mg tablet 5 mg PO HS simvastatin 20 mg tablet 20 mg PO HS amitriptyline 100 mg tablet 100 mg PO HS finasteride [Proscar] 5 mg tablet 5 mg PO HS tamsulosin [Flomax] 0.4 mg capsule 0.4 mg PO HS hydromorphone [Dilaudid] 2 mg tablet 2 mg PO Q6H PRN (Reason: pain) Qty: 40 0RF Discharge Orders: Discharge Order (Routine); Ordered 10/25/21 Ordered By: Sd Bingham Admission Data Admit Date/Time: 10/24/21 15:53 Attending Provider: Sd Bingham Admit Provider: Sd Bingham Primary Care Provider: Bing Ramos
[2021-10-25] MEDS ORDERED: MULTIVITAMIN TAB PO SCH (09:00)
[2021-10-25] MEDS ORDERED: metFORMIN HCL 500 MG TAB PO SCH (09:00)
[2021-10-25] MEDS: INSULIN ASPART PER UNIT SC SCH (09:09)
[2021-10-25] MEDS: DOCUSATE SODIUM 100 MG CAP PO SCH (09:10)
[2021-10-25] MEDS: buPROPion HCl 100 MG TABLET PO SCH (09:10)
== END 2021-10-25 12:32 | disposition home health service (06) ==
LOC: 3E 11:39 → ASU 11:39

== ENCOUNTER 2024-11-21 06:03 | Inpatient (IN) ==
--- NOTE | 2024-10-19 15:48 | PAT Medication Instructions ---
Medication Instructions Date of Service October 19, 2024 Home Medications Medication Instructions Recorded fluticasone propionate 50 2 spray intranasal BID PRN allergy 09/10/21 mcg/actuation nasal symptoms #48 grams spray,suspension (Flonase Allergy Relief) allopurinol 100 mg tablet 100 mg PO HS #90 tabs 03/27/24 ondansetron HCl 8 mg tablet 8 mg PO Q8H PRN nausea and 03/27/24 vomiting #30 tabs cyclobenzaprine 5 mg tablet 5 mg PO HS PRN muscle spasm #90 07/14/24 tabs epinephrine 0.3 mg/0.3 mL 0.3 mg (0.3 mL) IM .COMPLEX PRN 07/14/24 injection, auto-injector bronchodilation #2 ea needle (disp) 25 gauge 25 gauge x #100 ea 07/14/24 5/8" (BD PrecisionGlide Non-Sterile) tamsulosin 0.4 mg capsule 0.4 mg PO HS #90 caps 08/10/24 bupropion HCl 100 mg tablet 100 mg PO BID #180 tabs 09/05/24 cyanocobalamin (vitamin B-12) 1,000 mcg IM MONTHLY #10 mL 09/25/24 1,000 mcg/mL injection solution doxycycline hyclate 100 mg capsule 100 mg PO BID #14 caps 10/13/24 multivitamin 1 tab PO BID fluticasone propionate 50 mcg/actuation nasal spray,suspension (Flonase Allergy Relief) 2 spray intranasal BID PRN allergy symptoms allopurinol 100 mg tablet 100 mg PO HS ondansetron HCl 8 mg tablet 8 mg PO Q8H PRN nausea and vomiting cetirizine 10 mg capsule (Zyrtec) 10 mg PO QAM PRN Allergies cholecalciferol (vitamin D3) 125 mcg (5,000 unit) capsule 125 mcg PO DAILY famotidine 20 mg tablet 40 mg PO DAILY PRN GERD cyclobenzaprine 5 mg tablet 5 mg PO HS PRN muscle spasm epinephrine 0.3 mg/0.3 mL injection, auto-injector 0.3 mg (0.3 mL) IM .COMPLEX PRN bronchodilation tamsulosin 0.4 mg capsule 0.4 mg PO HS epoetin stephy 40,000 unit/mL injection solution (Procrit) See Rx Instructions subcut .COMPLEX bupropion HCl 100 mg tablet 100 mg PO BID cyanocobalamin (vitamin B-12) 1,000 mcg/mL injection solution 1,000 mcg IM MONTHLY calcitriol 0.25 mcg capsule 0.25 mcg PO Q OTHER DAY doxycycline hyclate 100 mg capsule 100 mg PO BID ketorolac 0.5 % eye drops 1 drp OPR BID prednisolone acetate 1 % eye drops,suspension 1 drp OPR DAILY semaglutide 0.25 mg or 0.5 mg (2 mg/3 mL) subcutaneous pen injector (Ozempic) 0.25 mg subcut Q7D amitriptyline 100 mg tablet 100 mg PO HS dapagliflozin propanediol 10 mg tablet (Farxiga) 10 mg PO QAM finasteride 5 mg tablet (Proscar) 5 mg PO HS sodium bicarbonate 650 mg tablet 650 mg PO QAM sumatriptan succinate 100 mg tablet 100 mg PO DAILY PRN Migraines Continue as directed epinephrine 0.3 mg/0.3 mL injection, auto-injector 0.3 mg (0.3 mL) IM .COMPLEX PRN bronchodilation (if needed) epoetin stephy 40,000 unit/mL injection solution (Procrit) See Rx Instructions subcut .COMPLEX prednisolone acetate 1 % eye drops,suspension 1 drp OPR DAILY STOP 7 days prior to surgery semaglutide 0.25 mg or 0.5 mg (2 mg/3 mL) subcutaneous pen injector (Ozempic) 0.25 mg subcut Q7D STOP taking 3 days before surgery dapagliflozin propanediol 10 mg tablet (Farxiga) 10 mg PO QAM DO NOT take the morning of surgery multivitamin 1 tab PO BID cetirizine 10 mg capsule (Zyrtec) 10 mg PO QAM PRN Allergies cholecalciferol (vitamin D3) 125 mcg (5,000 unit) capsule 125 mcg PO DAILY cyanocobalamin (vitamin B-12) 1,000 mcg/mL injection solution 1,000 mcg IM MONTHLY calcitriol 0.25 mcg capsule 0.25 mcg PO Q OTHER DAY sodium bicarbonate 650 mg tablet 650 mg PO QAM Take morning of surgery With a small sip of water, OTHERWISE NOTHING TO EAT OR DRINK AFTER MIDNIGHT: fluticasone propionate 50 mcg/actuation nasal spray,suspension (Flonase Allergy Relief) 2 spray intranasal BID PRN allergy symptoms (if needed) ondansetron HCl 8 mg tablet 8 mg PO Q8H PRN nausea and vomiting (if needed) famotidine 20 mg tablet 40 mg PO DAILY PRN GERD (if needed) bupropion HCl 100 mg tablet 100 mg PO BID doxycycline hyclate 100 mg capsule 100 mg PO BID ketorolac 0.5 % eye drops 1 drp OPR BID sumatriptan succinate 100 mg tablet 100 mg PO DAILY PRN Migraines (if needed) Take evening before surgery multivitamin 1 tab PO BID fluticasone propionate 50 mcg/actuation nasal spray,suspension (Flonase Allergy Relief) 2 spray intranasal BID PRN allergy symptoms (if needed) allopurinol 100 mg tablet 100 mg PO HS ondansetron HCl 8 mg tablet 8 mg PO Q8H PRN nausea and vomiting (if needed) famotidine 20 mg tablet 40 mg PO DAILY PRN GERD (if needed) cyclobenzaprine 5 mg tablet 5 mg PO HS PRN muscle spasm (if needed) tamsulosin 0.4 mg capsule 0.4 mg PO HS bupropion HCl 100 mg tablet 100 mg PO BID doxycycline hyclate 100 mg capsule 100 mg PO BID ketorolac 0.5 % eye drops 1 drp OPR BID amitriptyline 100 mg tablet 100 mg PO HS finasteride 5 mg tablet (Proscar) 5 mg PO HS sumatriptan succinate 100 mg tablet 100 mg PO DAILY PRN Migraines (if needed) Other Notes If you have any questions please call us at [phone] or [phone] or [phone] or [phone]
--- NOTE | 2024-10-25 13:19 | Anesthesiology Consultation ---
Date of Service October 25, 2024 Assessment & Plan (1) Encounter for pre-operative examination: - Check BSG DOS - Infectious disease screening: Per assessment on 10/25/24- No known recent infectious disease contacts or current infectious disease symptoms. - GLP-1 medication instructions: Patient informed by PAT to stop 7 days prior to surgery- voiced understanding. DOS 11/21. Advised last dose to be 8/10. - PCP visit (10/27/24): "Pre-op exam, lumbar disease: Risks and benefits discussed with patient of operative procedure. Pre-op workup reviewed. Patient is at acceptable risk for pursuing surgical intervention. CKDIV, anemia of chronic disease: Farxiga daily, Procrit PRN. Est w/ [facility], Dr. Perez. 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 Advised to stay hydrated. Avoid NSAID use. He is scheduled to see nephrology on 11/16 prior to surgery, renal panel will be completed prior to nephrology appt for review to ensure stable for surgery. hgb is stable. Memory loss, migraine headache, tremor: Imitrex PRN. Neuropsychology testing noting some memory issues possible related to medications/mood-- has been adjusting medications w/ some improvement. Established with neurology.. SANDOR, circadian rhythm disorder: Sonata too much sedation, stopped. Sleep apnea improve w/ wt loss. Follows with sleep medicine PRN.." - Awaiting upcoming nephrology visit ([facility], appt 11/16). Patient otherwise acceptable risk for surgery. Chart Review Chart Review: Patient seen in Pre Admission Testing Teaching & Discussion Pre-Anesthesia Teaching/Discussion Notes: Instructed NPO after midnight before surgery,except medications with 15 cc of water. Medication instructions provided according to the PAT guidelines. History Surgery Operation Date: 11/21/24 07:45 Proposed Procedures p L3-L4 Decompression and Fusion, L4-S1 Hardware Removal, Spinal Cord Monitoring - Farooq Burgos, DO Height/Weight Height: 5 ft 10 in Weight: 82.6 kg Allergies Allergy/AdvReac Type Severity Reaction Status Date / Time Fish Containing Products Allergy Severe Anaphylaxis Verified 10/27/24 10:32 imipenem Allergy Severe Hives, Verified 10/27/24 10:32 dyspnea (tolerates Cefazolin) iodine Allergy Severe Anaphylaxis Verified 10/27/24 10:32 latex Allergy Severe Dyspnea, Verified 10/27/24 10:32 swelling of throat moxifloxacin Allergy Severe Respiratory Verified 10/27/24 10:32 distress, hives mustard Allergy Severe Anaphylaxis Verified 10/27/24 10:32 peach Allergy Severe Anaphylaxis Verified 10/27/24 10:32 shellfish derived Allergy Severe Anaphylaxis Verified 10/27/24 10:32 Sulfa (Sulfonamide Allergy Severe Dyspnea Verified 10/27/24 10:32 Antibiotics) watermelon Allergy Severe hives, Verified 10/27/24 10:32 throat swelling adhesive tape Allergy Intermediate Rash, Verified 10/27/24 10:32 "Melts my skin" Primaxin SOLR Allergy Severe Dyspnea Uncoded 10/27/24 10:32 Medications Home Medications Medication Instructions Recorded Confirmed Last Taken multivitamin 1 tab PO BID 06/23/20 10/27/24 10/23/21 21:00 fluticasone propionate 50 2 spray intranasal BID PRN allergy 09/10/21 10/27/24 10/20/21 08:00 mcg/actuation nasal symptoms #48 grams spray,suspension (Flonase Allergy Relief) allopurinol 100 mg tablet 100 mg PO HS #90 tabs 03/27/24 10/27/24 Unknown ondansetron HCl 8 mg tablet 8 mg PO Q8H PRN nausea and 03/27/24 10/27/24 Unknown vomiting #30 tabs cetirizine 10 mg capsule (Zyrtec) 10 mg PO QAM PRN Allergies 06/19/24 10/27/24 Unknown cholecalciferol (vitamin D3) 125 125 mcg PO DAILY 06/19/24 10/27/24 Unknown mcg (5,000 unit) capsule famotidine 20 mg tablet 40 mg PO DAILY PRN GERD 06/19/24 10/27/24 Unknown cyclobenzaprine 5 mg tablet 5 mg PO HS PRN muscle spasm #90 07/14/24 10/27/24 Unknown tabs epinephrine 0.3 mg/0.3 mL 0.3 mg (0.3 mL) IM .COMPLEX PRN 07/14/24 10/27/24 Unknown injection, auto-injector bronchodilation #2 ea needle (disp) 25 gauge 25 gauge x #100 ea 07/14/24 10/27/24 Unknown 5/8" (BD PrecisionGlide Non-Sterile) tamsulosin 0.4 mg capsule 0.4 mg PO HS #90 caps 08/10/24 10/27/24 Unknown epoetin stephy 40,000 unit/mL See Rx Instructions subcut .COMPLEX 08/21/24 10/27/24 Unknown injection solution (Procrit) bupropion HCl 100 mg tablet 100 mg PO BID #180 tabs 09/05/24 10/27/24 Unknown cyanocobalamin (vitamin B-12) 1,000 mcg IM MONTHLY #10 mL 09/25/24 10/27/24 Unk nown 1,000 mcg/mL injection solution calcitriol 0.25 mcg capsule 0.25 mcg PO Q OTHER DAY 10/13/24 10/27/24 Unknown ketorolac 0.5 % eye drops 1 drp OPR BID 10/17/24 10/27/24 Unknown prednisolone acetate 1 % eye 1 drp OPR DAILY 10/17/24 10/27/24 Unknown drops,suspension semaglutide 0.25 mg or 0.5 mg (2 0.25 mg subcut Q7D 10/17/24 10/27/24 10/15/24 mg/3 mL) subcutaneous pen injector (Ozempic) amitriptyline 100 mg tablet 100 mg PO HS 10/18/24 10/27/24 Unknown dapagliflozin propanediol 10 mg 10 mg PO QAM 10/18/24 10/27/24 Unknown tablet (Farxiga) finasteride 5 mg tablet (Proscar) 5 mg PO HS 10/18/24 10/27/24 Unknown sodium bicarbonate 650 mg tablet 650 mg PO QAM 10/18/24 10/27/24 Unknown sumatriptan succinate 100 mg tablet 100 mg PO DAILY PRN Migraines 10/18/24 10/27/24 Unknown Past Medical History Medical History Allergic rhinitis, cause unspecified Anemia due to chronic kidney disease "Injection" approximately every other month Denies hx blood transfusion/iron infusion BPH (benign prostatic hyperplasia) [facility] Chronic kidney disease, stage 4 (severe) [facility]- Dr. Perez No dialysis Depression Diabetes mellitus, type 2 Taking weekly Semaglutide GERD (gastroesophageal reflux disease) Gout No recent flares History of diverticulitis of colon s/p hemicolectomy (1984) Hyperlipidemia Hypertension Insomnia L4 vertebral fracture Reason for upcoming procedure 11/21/24 Migraines No recent/current issues NAFLD (nonalcoholic fatty liver disease) Nephrolithiasis Passed without intervention Neurogenic claudication due to lumbar spinal stenosis Neuropathy SANDOR (obstructive sleep apnea) Hx per records Patient states he was told RLS after sleep study with no apnea found. 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 (03/2020) History of arthroplasty of left knee (2009) History of arthroscopic knee surgery (2002) R knee, ACL repair History of arthroscopic surgery of elbow Left History of carpal tunnel surgery Bilateral History of cataract surgery Bilateral History of gastric bypass (1994) History of neck surgery (11/2010) Removal anterior cervical instrumentation C4-C5, exploration of fusion, anterior cervical diskectomy with bilateral foraminotomy C3-C4, anterior cervical fusion C3-C4 History of partial colectomy (1984) secondary to diverticulitis History of revision of total replacement of left knee joint 2011 - [facility] [place] History of total right hip arthroplasty Hx of colonoscopy Hx of lumbosacral spine surgery (03/2019) L4-S1 decompression/fusion (03/17/19): Grade view 1, MAC#3, ETT 8.0 at [facility] Hx of thumb surgery left for cyst removal Nausea and vomiting after administration of anesthetic agent S/P arthroscopy of shoulder Right, RCR Left shoulder arthroscopy/RCR (03/06/21): LMA#5 + PNB at [facility]. No issues per post-op anesthesia progress note. S/p reverse total shoulder arthroplasty R/L Left reverse TSA (10/24/21): LMA#5 igel + regional at [facility] S/P tonsillectomy Past Anesthesia History No Hx of Anesthesia Complications and No Family Hx of Anesthesia Complications History of PONV No Hx of Motion Sickness and History of PONV Social History Smoking Status: Former smoker Do You Dip or Chew Tobacco: No Smoking End Date: Quit 1984 Hx Alcohol Use: No Hx Substance Use: No substance use type: does not use Review of Systems Patient denies chest pain, shortness of breath, fever, chills, cough, wheezing. Physical Exam Vital Signs BP 126/68 P 70 TEMP 97.8 SP02 100%RA RESP 18 Physical Decreased cervical extension range of motion. Full TMJ range of motion. TMD 3 finger breaths Mallampati Score I Dentition: upper partial Lungs: clear throughout to auscultation Cardiac: regular rate and rhythm, no murmurs noted Spine: normal Carotid arteries: negative bruit Extremities: no LE edema Lab Results Anesthesia Preop Results Results Anesthesia Widget: WBC 7.33 K/ul (4.8-10.8) 10/25/24 Hgb 10.1 g/dl (14.0-18.0) L 10/25/24 Hct 31.1 % (42.0-52.0) L 10/25/24 Plt 257 K/uL (130-400) 10/25/24 Na 140 mmol/L (136-145) 10/25/24 K 4.2 mmol/L (3.5-5.1) 10/25/24 Cl 109 mmol/L (98-107) H 10/25/24 CO2 23 mmol/L (21-32) 10/25/24 BUN 58 mg/dl (6-23) H 10/25/24 Creat 3.39 mg/dl (0.6-1.4) H 10/25/24 Glucose Level 78 mg/dl (70-99(Fasting)) 10/25/24 PT 10.2 Seconds (9.0-12.0) 10/25/24 PTT 27 Seconds (21-31) 10/25/24 INR 0.9 (0.9-1.1) 10/25/24 HA1c 5.7 % (4.5-5.6) H 10/25/24 Urine Color Yellow 10/25/24 Urine Appearance Clear (Clear) 10/25/24 Urine pH 5.0 (4.5-7.5) 10/25/24 Urine Specific [place] 1.011 (1.000-1.030) 10/25/24 Urine Protein Trace (Negative) H 10/25/24 Urine Glucose (UA) 2+ (Negative) H 10/25/24 Urine Ketones Negative (Negative) 10/25/24 Urine Blood Trace (Negative) H 10/25/24 Urine Nitrite Negative (Negative) 10/25/24 Urine Bilirubin Negative (Negative) 10/25/24 Urine Urobilinogen Negative (Negative) 10/25/24 Urine Leukocyte Esterase Trace (Negative) H 10/25/24 Urine WBC (Auto) 6-10 /hpf (0-5) H 10/25/24 Urine RBC (Auto) 0-2 /hpf (0-2) 10/25/24 Urine Hyaline Casts (Auto) 3-5 /lpf (0-2) H 10/25/24 Urine Epithelial Cells (Auto) 0-2 /hpf (0-2) 10/25/24 Urine Bacteria (Auto) None Seen (None Seen) 10/25/24 Blood Type A Positive 10/25/24 Antibody Screen NEGATIVE 10/25/24 Testing Electrocardiogram Date: 10/25/24 NSR at 68bpm. "Normal ECG" Chest X-Ray Date: 10/25/24 Findings: + NAD Echocardiogram Date: 04/24/19 EF 55-60% No LV regional wall motion abnormalities Borderline cLVH No significant valvular pathology Grade I diastolic dysfunction
[2024-11-21] MEDS: ACETAMINOPHEN 500 MG TAB PO SCH (06:36)
[2024-11-21] MEDS: SODIUM CHLORIDE 0.9% 1000ML IV SCH (06:36)
[2024-11-21] MEDS: GABAPENTIN 300 MG CAP PO SCH (06:36)
[2024-11-21] MEDS: CeleBREX 200 MG CAP PO SCH (06:36)
[2024-11-21] MEDS ORDERED: ROCURONIUM BROMIDE 10 MG/ML 5 ML VIAL IV ONE ×2 (06:46→08:11)
[2024-11-21] MEDS ORDERED: ONDANSETRON INJ 2 MG/ML 2 ML VIAL ONE (06:46)
[2024-11-21] MEDS ORDERED: LIDOCAINE 2% 2 ML VIAL/AMP(20MG/ML) INFIL ONE (06:46)
[2024-11-21] MEDS ORDERED: PROPOFOL IV EMULSION 10 MG/ML 20 ML VIAL IV ONE (06:46)
[2024-11-21] MEDS: LR 60ML/HR IV SCH (07:00)
[2024-11-21] MEDS ORDERED: ATROPINE SULFATE 0.1 MG/ML 10ML SYR IV PRN (07:08)
[2024-11-21] MEDS ORDERED: ONDANSETRON INJ 2 MG/ML 2 ML VIAL IV PRN ×2 (07:08→11:34)
--- NOTE | 2024-11-21 07:37 | History & Physical Bridge Note ---
Date of Service November 21, 2024 History & Physical Bridge Note I have examined the patient, reviewed the History & Physical and in the interval since the performance of the History & Physical I have noted the following changes of clinical significance: no changes noted
--- NOTE | 2024-11-21 07:38 | History & Physical Report ---
Date of Service November 21, 2024 Assessment & Plan (1) Other spondylosis with radiculopathy, lumbar region: Plan: L3-L4 decompression fusion, L4-S1 hardware removal History of Present Illness Chief Complaint: Back and leg pain Primary Care Provider: Bing Ramos DO This is a 74-year-old male presents with chronic persistent back and leg pain after failing course of nonoperative care is here for surgical invention. Allergies Allergy/AdvReac Type Severity Reaction Status Date / Time Fish Containing Products Allergy Severe Anaphylaxis Verified 11/21/24 06:22 imipenem Allergy Severe Hives, Verified 11/21/24 06:22 dyspnea (tolerates Cefazolin) iodine Allergy Severe Anaphylaxis Verified 11/21/24 06:22 latex Allergy Severe Dyspnea, Verified 11/21/24 06:22 swelling of throat moxifloxacin Allergy Severe Respiratory Verified 11/21/24 06:22 distress, hives mustard Allergy Severe Anaphylaxis Verified 11/21/24 06:22 peach Allergy Severe Anaphylaxis Verified 11/21/24 06:22 shellfish derived Allergy Severe Anaphylaxis Verified 11/21/24 06:22 Sulfa (Sulfonamide Allergy Severe Dyspnea Verified 11/21/24 06:22 Antibiotics) watermelon Allergy Severe hives, Verified 11/21/24 06:22 throat swelling adhesive tape Allergy Intermediate Rash, Verified 11/21/24 06:22 "Melts my skin" Primaxin SOLR Allergy Severe Dyspnea Uncoded 11/21/24 06:22 Home Medications Medication Instructions Recorded Confirmed Type multivitamin 1 tab PO BID 06/23/20 11/21/24 History fluticasone propionate 50 2 spray intranasal BID PRN allergy 09/10/21 11/21/24 Rx mcg/actuation nasal symptoms #48 grams spray,suspension (Flonase Allergy Relief) allopurinol 100 mg tablet 100 mg PO HS #90 tabs 03/27/24 11/21/24 Rx ondansetron HCl 8 mg tablet 8 mg PO Q8H PRN nausea and 03/27/24 11/21/24 Rx vomiting #30 tabs cetirizine 10 mg capsule (Zyrtec) 10 mg PO QAM PRN Allergies 06/19/24 11/21/24 History cholecalciferol (vitamin D3) 125 125 mcg PO DAILY 06/19/24 11/21/24 History mcg (5,000 unit) capsule famotidine 20 mg tablet 40 mg PO DAILY PRN GERD 06/19/24 11/21/24 History cyclobenzaprine 5 mg tablet 5 mg PO HS PRN muscle spasm #90 07/14/24 11/21/24 Rx tabs epinephrine 0.3 mg/0.3 mL 0.3 mg (0.3 mL) IM .COMPLEX PRN 07/14/24 11/21/24 Rx injection, auto-injector bronchodilation #2 ea needle (disp) 25 gauge 25 gauge x #100 ea 07/14/24 11/16/24 Rx 5/8" (BD PrecisionGlide Non-Sterile) tamsulosin 0.4 mg capsule 0.4 mg PO HS #90 caps 08/10/24 11/21/24 Rx epoetin stephy 40,000 unit/mL See Rx Instructions subcut .COMPLEX 08/21/24 11/21/24 History injection solution (Procrit) bupropion HCl 100 mg tablet 100 mg PO BID #180 tabs 09/05/24 11/21/24 Rx cyanocobalamin (vitamin B-12) 1,000 mcg IM MONTHLY #10 mL 09/25/24 11/21/24 Rx 1,000 mcg/mL injection solution calcitriol 0.25 mcg capsule 0.25 mcg PO Q OTHER DAY 10/13/24 11/21/24 History ketorolac 0.5 % eye drops 1 drp OPR BID 10/17/24 11/21/24 History prednisolone acetate 1 % eye 1 drp OPR DAILY 10/17/24 11/21/24 History drops,suspension semaglutide 0.25 mg or 0.5 mg (2 0.25 mg subcut Q7D 10/17/24 11/21/24 History mg/3 mL) subcutaneous pen injector (Ozempic) amitriptyline 100 mg tablet 100 mg PO HS 10/18/24 11/21/24 History dapagliflozin propanediol 10 mg 10 mg PO QAM 10/18/24 11/21/24 History tablet (Farxiga) finasteride 5 mg tablet (Proscar) 5 mg PO HS 10/18/24 11/21/24 History sodium bicarbonate 650 mg tablet 650 mg PO QAM 10/18/24 11/21/24 History sumatriptan succinate 100 mg tablet 100 mg PO DAILY PRN Migraines 10/18/24 11/21/24 History calcium acetate 667 mg tablet 667 mg PO BIDM #60 tabs 11/16/24 11/21/24 Rx Past Med/Surg History Problem List (Updated 11/21/24 @ 07:38 by Farooq Burgos DO) Other spondylosis with radiculopathy, lumbar region Chronic kidney disease, stage 4 (severe) Metabolic acidosis Folic acid deficiency Greater trochanteric bursitis of right hip Anemia due to chronic kidney disease Proteinuria GERD (gastroesophageal reflux disease) Sacroiliitis Disc degeneration, lumbar Adjacent segment disease of lumbar spine with history of fusion procedure Cervical radicular pain Circadian rhythm sleep disorder, shift work type Insufficient sleep syndrome Insomnia Cholelithiasis NAFLD (nonalcoholic fatty liver disease) Osteoarthritis Trochanteric bursitis of right hip Obesity Sensorineural hearing loss (SNHL) of both ears Rotator cuff arthropathy of left shoulder Tinnitus Depression Migrainous headache without aura Diabetes SANDOR (obstructive sleep apnea) Idiopathic polyneuropathy Vitamin B12 deficiency Lumbar stenosis BPH loc w urin obs/LUTS Gouty arthropathy, unspecified (Chronic) Hyperlipidemia (Chronic) Hypertension (Chronic) Vitamin D deficiency Medical History SANDOR (obstructive sleep apnea) NAFLD (nonalcoholic fatty liver disease) Migraines Insomnia Neuropathy Hypertension Hyperlipidemia Gout GERD (gastroesophageal reflux disease) Diabetes mellitus, type 2 Depression BPH (benign prostatic hyperplasia) Anemia due to chronic kidney disease Chronic kidney disease, stage 4 (severe) L4 vertebral fracture Tremor Periodic limb movement disorder History of diverticulitis of colon Nephrolithiasis Neurogenic claudication due to lumbar spinal stenosis Allergic rhinitis, cause unspecified Surgical History History of revision of total replacement of left knee joint Hx of colonoscopy History of total right hip arthroplasty History of arthroplasty of left knee (2009) Hx of thumb surgery History of neck surgery (11/2010) S/p reverse total shoulder arthroplasty Hx of lumbosacral spine surgery (03/2019) 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) S/P arthroscopy of shoulder S/P tonsillectomy History of arthroscopic surgery of elbow Nausea and vomiting after administration of anesthetic agent History of partial colectomy (1984) History of gastric bypass (1994) History of cataract surgery History of carpal tunnel surgery History of arthroscopic knee surgery (2002) Family History Father Family history of diabetes mellitus Kidney stones Other No family history of adverse response to anesthesia Denies family history of Ovarian cancer Prostate cancer Myocardial infarction Breast cancer Colorectal cancer Social History Smoking Status: Former smoker Tobacco Type: Cigarettes Age Started Using Tobacco: 22; Age Quit Using Tobacco: 35; packs per day: 0.5; Smoking End Date: Quit 1984; Second Hand Exposure: No; Do You Dip or Chew Tobacco: No; Tobacco Cessation Education Requested by Patient: No Hx Alcohol Use: No Hx Substance Use: No Preferred Language: Sami Communication Ability: Effective Visual Impairment: No Limitations Hearing Ability: Normal Agility Instructor Required: No Beliefs That Will Affect Care: None marital status: Current Living Situation: Spouse current occupational status: retired current occupation: Retired from [employer]. (self employed catering, now closed) Other Information That Helps Us Care for You: No Feels Safe at Home: Yes Safety Concerns: Feels Safe At This Time Childhood Exposure to Second-Hand Smoke: Yes Diet: regular Diet Comment: Regular 1850 calories/day caffeine: No during the past year weight has: remained stable Dental Care, Regularly: Yes Physical Activity Frequency: Daily Seatbelt Use: always Sunscreen Use: Yes Assistive Devices: Glasses and Other Assistive Devices Comment: Upper Partial Physical Exam Physical Exam: Patient is alert and oriented Heart regular rhythm Lungs clear Results & Data Results & Data Vital Signs (Past 12 Hours) Vital Signs Temp Pulse Resp BP Pulse Ox O2 Del Method 11/21/24 06:55 36.8 C 89 20 162/71 H 96 Room Air
[2024-11-21] MEDS ORDERED: PHENYLEPHRINE 100MCG/ML 5ML SYR ONE (08:20)
[2024-11-21] MEDS: ceFAZolin 330 MG/ML 1 GM VIAL ONE (08:21)
[2024-11-21] MEDS: BUPIVACAINE/EPINEPHRINE 0.25% 1:200,000 30 ML VIAL ONE (08:21)
[2024-11-21] MEDS ORDERED: ePHEDrine sulfate 50 MG/5 ML SYR ONE (09:09)
[2024-11-21] MEDS: FLOSEAL HEMOSTATIC MATRIX 10ML TOP ONE (09:14)
[2024-11-21] MEDS ORDERED: SUGAMMADEX SODIUM 200 MG/2 ML VIAL IV ONE (09:23)
--- NOTE | 2024-11-21 09:29 | Operative Report ---
Post Operative Report Pre & Post Diagnosis Operation Date: 11/21/24 07:45 Pre-Op Diagnosis: #1 lumbar spondylosis with radiculopathy #2 lumbar spinal stenosis Post-Op Diagnosis: Same I identified the patient and participated in the time-out.: Yes Procedure Operation Date: 11/21/24 07:45 Actual Procedures #1 removal of posterior instrumentation L4-S1. #2 exploration of fusion L4-S1. #3 lumbar decompression with bilateral medial facetectomies and foraminotomies L2-L3 L3-L4. #4 posterior spinal fusion L3-L4. #5 placement posterior instrumentation L3-S1 using Lewis. #6 interbody fusion L3-L4. #7 placement Spira 11 x 26 mm at L3-L4. #8 placement of the harvested morselized autograft and posterior gutters. #9 placement of Proteus combined with Koros in the posterior lateral gutters and os design and interbody space. #10 application of versa wrap of the exposed dura. Surgeon Farooq Burgos, Reservationist Magalie Ramirez Estimated Blood Loss 200 Findings Consistent with Post-Op Diagnosis Specimens None Indications This is a 74-year-old male presents by much diagnosis of failed course of nonoperative care is here for surgical invention. Description of Procedure Patient met with identified informed consent obtained. Patient was then taken to the operative suite underwent a base and placed in a prone position on the Sony table on top of the Artem frame. All bony prominences well-padded eyes inspected to ensure no external pressure placed upon them. This point lumbar spine was prepped and draped in the normal sterile fashion. Sharp dissection with the assistance of Bovie cautery performed down to exposing the lamina and transverse processes of L3 and instrumentation L4-L5 and S1 levels bilaterally. Then proceeded to remove the hardware bilaterally. Explored the fusion mass noting it to be mature and intact. Then performed complete laminectomy of L3 with bilateral medial facetectomies and foraminotomies followed by partial laminectomy of L2 with bilateral medial facetectomies to address all subarticular stenosis. Pedicle screws then placed in L3-L4 and S1 levels bilaterally with assistance of fluoroscopy and appropriately sized kelley placed. By way of transforaminal approach on the right a complete discectomy of L3-L4 was performed endplates corrected to subcortical main bone and 11 x 26 mm spiral cage filled with os design bone graft tapped in position. The rods were then locked in a final position bilaterally with the transverse processes of L3-L4 burred to subcortical bleeding bone. Protease combined with Koros and local autograft placed in posterior gutters. Versa wrap placed over exposed dura. 15 round MARIE drain inserted. The incision was then closed with 1 Vicryl the fascia 2-0 Vicryl subcutaneously and 4-0 Monocryl for final skin closure. Steri-Strips sterile dressing placed. Patient waken taken to PACU in stable condition. Please note Magalie Ramirez was present at the entire procedure and all the patient positioning complex for CV surgery and final skin closure. I attest to the content of the Intraoperative Record and any orders documented therein. Any exceptions are noted below.
[2024-11-21] MEDS: HYDROmorphone INJ 2 MG/ML SYR/VIAL IV PRN (10:03)
--- NOTE | 2024-11-21 10:08 | Fluoroscopy Report ---
FL lumbar spine 2-3V CLINICAL HISTORY: L3-L4 DECOMPRESSION/ FUSION COMPARISON STUDY: None FLUOROSCOPY TIME: 12 seconds FLUOROSCOPY IMAGES: 3 EXPOSURE DOSE: 8 mGy FINDINGS: Fluoroscopy was provided for lumbar surgery. IMPRESSION: ACT 112: Negative or not required by law. Electronically signed by: Tyrell Sanchez M.D. 11/21/2024 10:07 AM
--- NOTE | 2024-11-21 11:00 | Anesthesiology Progress Note ---
Date of Service November 21, 2024 Anesthesia Post Procedure Vital Signs Vital Signs: Temp Pulse Pulse Resp BP Pulse Ox O2 Del Method 11/21/24 10:45 84 12 131/58 L 96 Nasal Cannula 11/21/24 10:35 81 12 121/60 97 Nasal Cannula 11/21/24 10:25 36.4 C L 75 14 124/60 99 Nasal Cannula 11/21/24 10:15 76 12 124/58 L 99 Nasal Cannula 11/21/24 10:05 75 14 136/71 97 Nasal Cannula 11/21/24 09:55 78 12 145/69 H 99 Oxymask 11/21/24 09:44 36 C L 82 18 156/71 H 100 Oxymask 11/21/24 06:55 36.8 C 89 20 162/71 H 96 Room Air O2 Flow Rate 11/21/24 10:45 2 11/21/24 10:35 2 11/21/24 10:25 2 11/21/24 10:15 2 11/21/24 10:05 2 11/21/24 09:55 4 11/21/24 09:44 8 11/21/24 06:55 Pain Intensity Back: Pain Intensity: 8 Transfer of Care Handoff Completed per policy Notes Mental Status: alert / awake / arousable Patient Amnestic to Procedure: Yes Nausea / Vomiting: adequately controlled Pain: adequately controlled Airway Patency, RR, SpO2: stable & adequate BP & HR: stable & adequate Hydration State: stable & adequate Anesthetic Complications: no major complications apparent and Pt Satisfied with anesthetic care
[2024-11-21] MEDS ORDERED: FLUTICASONE PROPIONATE NA SPR 16 GM BTL PRN (11:34)
[2024-11-21] MEDS ORDERED: FAMOTIDINE 20 MG TAB PO PRN (11:34)
[2024-11-21] MEDS ORDERED: ONDANSETRON 4 MG OD TAB PO PRN (11:34)
[2024-11-21] MEDS ORDERED: SOD PHOSPHATE/SOD BIPHOSPHATE ENEMA 132 ML BTL PR PRN (11:34)
[2024-11-21] MEDS ORDERED: MAGNESIUM HYDROXIDE SUSP 30 ML UDC PO PRN (11:34)
[2024-11-21] MEDS ORDERED: ACETAMINOPHEN 1,000 MG/100 ML VIAL IV PRN (11:34)
[2024-11-21] MEDS ORDERED: CYANOCOBALAMIN 1000 MCG/ML VIAL IM SCH (11:34)
[2024-11-21] MEDS ORDERED: FAMOTIDINE 40 MG TABLET PO PRN (11:34)
[2024-11-21] MEDS ORDERED: LORazepam 0.5 MG TAB PO PRN (11:34)
[2024-11-21] MEDS ORDERED: DO NOT ADMINISTER PNEUMOCOCCAL VACCINE PRN (11:34)
[2024-11-21] MEDS ORDERED: METOCLOPRAMIDE HCL INJ 5 MG/ML 2 ML VIAL IV PRN (11:34)
[2024-11-21] MEDS ORDERED: ACETAMINOPHEN 500 MG TAB PO PRN (11:34)
[2024-11-21] MEDS ORDERED: PROMETHAZINE 12.5 MG/50.5 ML BAG IV PRN (11:34)
[2024-11-21] MEDS ORDERED: NALOXONE HCL 0.4 MG/1 ML VIAL/CARP IV PRN (11:34)
[2024-11-21] MEDS ORDERED: ALUMINUM/MAGNESIUM SUSP 30 ML UDC PO PRN (11:34)
[2024-11-21] MEDS ORDERED: DO NOT ADMINISTER FLU VACCINE PRN (11:34)
[2024-11-21] MEDS ORDERED: HYDROmorphone INJ 1 MG/ML SYRINGE IV PRN (11:34)
[2024-11-21] MEDS ORDERED: diphenhydrAMINE Capsule 25 MG CAP PO PRN (11:34)
[2024-11-21] MEDS ORDERED: CYCLOBENZAPRINE HCL 5 MG TAB PO PRN (11:34)
[2024-11-21] MEDS ORDERED: CETIRIZINE HCL 10 MG TABLET PO PRN (11:44)
[2024-11-21] MEDS: CALCITRIOL 0.25 MCG CAPSULE PO SCH (11:58)
[2024-11-21] MEDS ORDERED: GLUCOSE 40% GEL 15 GM TUBE PO PRN (15:32)
[2024-11-21] MEDS ORDERED: DEXTROSE 50% 50 ML SYRINGE IV PRN (15:32)
[2024-11-21] MEDS ORDERED: CARBOHYDRATES FOR HYPOGLYCEMIA PO PRN (15:32)
[2024-11-21] MEDS ORDERED: GLUCOSE 10 TAB/TUBE PO PRN (15:32)
[2024-11-21] MEDS ORDERED: GLUCAGON FOR INJ 1 MG VIAL SQ PRN (15:32)
--- NOTE | 2024-11-21 15:39 | Hospitalist Consultation ---
Date of Consultation November 21, 2024 Assessment & Plan (1) Chronic kidney disease, stage IV (severe): (2) Essential hypertension: Currently stable. Continue current medical management. (3) Anemia of chronic disease: Preoperative hemoglobin 9.8. Serial labs (4) Type 2 diabetes mellitus: ADA diet. Sliding scale coverage for now. Plan The hospitalist service will follow daily and manage the medical problems. Eventual discharge per primary service History of Present Illness Reason for Consultation: Postoperative medical management Requesting Physician: Dr. Syed Burgos Attending Physician: Farooq Burgos, DO History of Present Illness 74-year-old white male with a history of type 2 diabetes, essential hypertension, stage IV chronic kidney disease who underwent redo lumbar surgery today, November 21. He had removal of previously implanted instrumentation with fusion, bone grafting, reinstrumentation. Preoperative EKG and chest x-ray done in October are unremarkable. Preoperative creatinine earlier this month was 3.3 and hemoglobin 9.8. Will follow. The patient was sleeping soundly at the time I was in the room. Allergies Allergy/AdvReac Type Severity Reaction Status Date / Time Fish Containing Products Allergy Severe Anaphylaxis Verified 11/21/24 06:22 imipenem Allergy Severe Hives, Verified 11/21/24 06:22 dyspnea (tolerates Cefazolin) iodine Allergy Severe Anaphylaxis Verified 11/21/24 06:22 latex Allergy Severe Dyspnea, Verified 11/21/24 06:22 swelling of throat moxifloxacin Allergy Severe Respiratory Verified 11/21/24 06:22 distress, hives mustard Allergy Severe Anaphylaxis Verified 11/21/24 06:22 peach Allergy Severe Anaphylaxis Verified 11/21/24 06:22 shellfish derived Allergy Severe Anaphylaxis Verified 11/21/24 06:22 Sulfa (Sulfonamide Allergy Severe Dyspnea Verified 11/21/24 06:22 Antibiotics) watermelon Allergy Severe hives, Verified 11/21/24 06:22 throat swelling adhesive tape Allergy Intermediate Rash, Verified 11/21/24 06:22 "Melts my skin" Primaxin SOLR Allergy Severe Dyspnea Uncoded 11/21/24 06:22 Home Medications Medication Instructions Recorded Confirmed Type multivitamin 1 tab PO BID 06/23/20 11/21/24 History fluticasone propionate 50 2 spray intranasal BID PRN allergy 09/10/21 11/21/24 Rx mcg/actuation nasal symptoms #48 grams spray,suspension (Flonase Allergy Relief) allopurinol 100 mg tablet 100 mg PO HS #90 tabs 03/27/24 11/21/24 Rx ondansetron HCl 8 mg tablet 8 mg PO Q8H PRN nausea and 03/27/24 11/21/24 Rx vomiting #30 tabs cetirizine 10 mg capsule (Zyrtec) 10 mg PO QAM PRN Allergies 06/19/24 11/21/24 History cholecalciferol (vitamin D3) 125 125 mcg PO DAILY 06/19/24 11/21/24 History mcg (5,000 unit) capsule famotidine 20 mg tablet 40 mg PO DAILY PRN GERD 06/19/24 11/21/24 History cyclobenzaprine 5 mg tablet 5 mg PO HS PRN muscle spasm #90 07/14/24 11/21/24 Rx tabs epinephrine 0.3 mg/0.3 mL 0.3 mg (0.3 mL) IM .COMPLEX PRN 07/14/24 11/21/24 Rx injection, auto-injector bronchodilation #2 ea needle (disp) 25 gauge 25 gauge x #100 ea 07/14/24 11/16/24 Rx 5/8" (BD PrecisionGlide Non-Sterile) tamsulosin 0.4 mg capsule 0.4 mg PO HS #90 caps 08/10/24 11/21/24 Rx epoetin stephy 40,000 unit/mL See Rx Instructions subcut .COMPLEX 08/21/24 11/21/24 History injection solution (Procrit) bupropion HCl 100 mg tablet 100 mg PO BID #180 tabs 09/05/24 11/21/24 Rx cyanocobalamin (vitamin B-12) 1,000 mcg IM MONTHLY #10 mL 09/25/24 11/21/24 Rx 1,000 mcg/mL injection solution calcitriol 0.25 mcg capsule 0.25 mcg PO Q OTHER DAY 10/13/24 11/21/24 History ketorolac 0.5 % eye drops 1 drp OPR BID 10/17/24 11/21/24 History prednisolone acetate 1 % eye 1 drp OPR DAILY 10/17/24 11/21/24 History drops,suspension semaglutide 0.25 mg or 0.5 mg (2 0.25 mg subcut Q7D 10/17/24 11/21/24 History mg/3 mL) subcutaneous pen injector (Ozempic) amitriptyline 100 mg tablet 100 mg PO HS 10/18/24 11/21/24 History dapagliflozin propanediol 10 mg 10 mg PO QAM 10/18/24 11/21/24 History tablet (Farxiga) finasteride 5 mg tablet (Proscar) 5 mg PO HS 10/18/24 11/21/24 History sodium bicarbonate 650 mg tablet 650 mg PO QAM 10/18/24 11/21/24 History sumatriptan succinate 100 mg tablet 100 mg PO DAILY PRN Migraines 10/18/24 11/21/24 History calcium acetate 667 mg tablet 667 mg PO BIDM #60 tabs 11/16/24 11/21/24 Rx hydrocodone 5 mg-acetaminophen 325 1 tab PO Q6H PRN pain #30 tabs 11/21/24 Rx mg tablet Patient History Medical History SANDOR (obstructive sleep apnea) NAFLD (nonalcoholic fatty liver disease) Migraines Insomnia Neuropathy Hypertension Hyperlipidemia Gout GERD (gastroesophageal reflux disease) Diabetes mellitus, type 2 Depression BPH (benign prostatic hyperplasia) Anemia due to chronic kidney disease Chronic kidney disease, stage 4 (severe) L4 vertebral fracture Tremor Periodic limb movement disorder History of diverticulitis of colon Nephrolithiasis Neurogenic claudication due to lumbar spinal stenosis Allergic rhinitis, cause unspecified Surgical History History of revision of total replacement of left knee joint Hx of colonoscopy History of total right hip arthroplasty History of arthroplasty of left knee (2009) Hx of thumb surgery History of neck surgery (11/2010) S/p reverse total shoulder arthroplasty Hx of lumbosacral spine surgery (03/2019) 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) S/P arthroscopy of shoulder S/P tonsillectomy History of arthroscopic surgery of elbow Nausea and vomiting after administration of anesthetic agent History of partial colectomy (1984) History of gastric bypass (1994) History of cataract surgery History of carpal tunnel surgery History of arthroscopic knee surgery (2002) Family History Father Family history of diabetes mellitus Kidney stones Other No family history of adverse response to anesthesia Denies family history of Ovarian cancer Prostate cancer Myocardial infarction Breast cancer Colorectal cancer Social History Smoking Status: Former smoker Tobacco Type: Cigarettes Age Started Using Tobacco: 22; Age Quit Using Tobacco: 35; packs per day: 0.5; Smoking End Date: Quit 1984; Second Hand Exposure: No; Do You Dip or Chew Tobacco: No; Tobacco Cessation Education Requested by Patient: No Hx Alcohol Use: No Hx Substance Use: No Preferred Language: Spanish Communication Ability: Effective Visual Impairment: No Limitations Hearing Ability: Normal Computer Systems Support Specialist Required: No Beliefs That Will Affect Care: None marital status: Current Living Situation: Spouse current occupational status: retired current occupation: Retired from [employer]. (self employed catering, now closed) Other Information That Helps Us Care for You: No Feels Safe at Home: Yes Safety Concerns: Feels Safe At This Time Childhood Exposure to Second-Hand Smoke: Yes Diet: regular Diet Comment: Regular 1850 calories/day caffeine: No during the past year weight has: remained stable Dental Care, Regularly: Yes Physical Activity Frequency: Daily Seatbelt Use: always Sunscreen Use: Yes Assistive Devices: Glasses and Other Assistive Devices Comment: Upper Partial Review of Systems Review of Systems: The patient was sleeping postoperatively Physical Exam Physical Exam: General-sleeping soundly postoperatively. No fever HEENT-head atraumatic and normocephalic Neck-no lymphadenopathy or thyromegaly, trachea midline Chest-clear to auscultation anteriorly. No rales, wheezing or rhonchi Cardiac-regular rate and rhythm, normal S1 and S2 Abdomen-normal bowel sounds, no hepatosplenomegaly Extremities-no cyanosis, clubbing, or edema Neuro-asleep postoperatively. Cannot assess Psych-asleep postoperatively. Cannot assess Results & Data Results & Data Vital Signs (Past 12 Hours) Vital Signs Temp Pulse Pulse Resp BP Pulse Ox O2 Del Method 11/21/24 14:25 36.4 C L 87 18 131/60 98 Nasal Cannula 11/21/24 13:19 36.3 C L 89 16 140/59 L 98 Nasal Cannula 11/21/24 12:27 36.3 C L 90 16 131/55 L 96 Nasal Cannula 11/21/24 11:56 36.4 C L 88 15 133/60 98 Nasal Cannula 11/21/24 11:34 36.4 C L 85 16 132/61 92 Room Air 11/21/24 11:00 86 12 130/57 L 98 Nasal Cannula 11/21/24 10:45 84 12 131/58 L 96 Nasal Cannula 11/21/24 10:35 81 12 121/60 97 Nasal Cannula 11/21/24 10:25 36.4 C L 75 14 124/60 99 Nasal Cannula 11/21/24 10:15 76 12 124/58 L 99 Nasal Cannula 11/21/24 10:05 75 14 136/71 97 Nasal Cannula 11/21/24 09:55 78 12 145/69 H 99 Oxymask 11/21/24 09:44 36 C L 82 18 156/71 H 100 Oxymask 11/21/24 06:55 36.8 C 89 20 162/71 H 96 Room Air O2 Flow Rate 11/21/24 14:25 2 11/21/24 13:19 2 11/21/24 12:27 2 11/21/24 11:56 2 11/21/24 11:34 11/21/24 11:00 2 11/21/24 10:45 2 11/21/24 10:35 2 11/21/24 10:25 2 11/21/24 10:15 2 11/21/24 10:05 2 11/21/24 09:55 4 11/21/24 09:44 8 11/21/24 06:55 PG Care Time/CCT Total # of Minutes Spent Total Time Spent with Patient: Total time spent is greater than 50% in coordination of care (as documented) at patient's floor/unit and/or counseling patient: Coding Level of Care Code 66450 IN/OBS CONSULT LVL 3,45M Diagnoses Chronic kidney disease, stage IV (severe) N18.4 Essential hypertension I10 Anemia of chronic disease D63.8 Type 2 diabetes mellitus E11.9
[2024-11-21] MEDS: INSULIN ASPART PER UNIT CHARGE SC SCH (17:20)
[2024-11-21] MEDS: CALCIUM ACETATE 667 MG CAP/TAB PO SCH (17:21)
[2024-11-21] MEDS: AMITRIPTYLINE HCL 100 MG TAB PO SCH (20:56)
[2024-11-21] MEDS: FINASTERIDE 5 MG TAB PO SCH (20:57)
[2024-11-21] MEDS: TAMSULOSIN HCL 0.4 MG CAP PO SCH (20:57)
[2024-11-21] MEDS: HYDROCODONE/ACETAMOPHEN 5/325MG TAB PO PRN (20:59)
[2024-11-21] MEDS: DOCUSATE SODIUM/SENNA 50/8.6MG TAB PO SCH (20:59)
[2024-11-22] MEDS: POLYETHYLENE (MIRALAX) 17 GM PACK PO SCH (05:56)
[2024-11-22 07:32] LABS: Hematocrit (blood only) 31.0 % (42.0-52.0); Hemoglobin 9.9 g/dl (14.0-18.0); Immature Granulocytes # (auto) 0.02 K/uL (0.01-0.20); Immature Granulocytes % (auto) 0.3 %; Mean Corpuscular Hemoglobin 29.8 pg (25.0-34.0); Mean Corpuscular Volume 93.4 fL (80.0-100.0); Platelet Count 247 K/uL (130-400); RDW Standard Deviation 47.3 fL (36.4-46.3); Red Blood Count 3.32 M/uL (4.70-6.10); White Blood Count 7.08 K/ul (4.8-10.8)
[2024-11-22 07:37] LABS: Anion Gap 6.0 (3-11); Blood Urea Nitrogen 52.0 mg/dl (6-23); Calcium 8.5 mg/dl (8.6-10.3); Carbon Dioxide 23.0 mmol/L (21-32); Chloride 110.0 mmol/L (98-107); Creatinine Clr Calc Pharmacy 21.4 ml/min; Glucose 94.0 mg/dl (70-99(Fasting)); Potassium 4.5 mmol/L (3.5-5.1); Sodium 139.0 mmol/L (136-145)
--- NOTE | 2024-11-22 08:21 | Orthopedic Progress Note ---
Date of Service November 22, 2024 Assessment & Plan (1) Other spondylosis with radiculopathy, lumbar region: Plan: At this time initiate physical therapy monitor his MARIE output hopefully discharge home the next few days. Admission and Anticipated Discharge Date Admission Date: November 21, 2024 Subjective Back pain controlled leg pain improved Physical Exam Physical Exam: Patient is currently in bed. Is comfortable. No strength testing. Results & Data Vital Signs (Past 12 Hours) Vital Signs Temp Pulse Resp BP BP Pulse Ox O2 Del Method 11/22/24 07:52 36.5 C 80 15 115/65 97 Room Air 11/22/24 03:45 35.7 C L 79 18 120/65 100 Nasal Cannula 11/22/24 00:04 35.9 C L 73 16 121/67 100 Nasal Cannula 11/21/24 20:54 Nasal Cannula O2 Flow Rate 11/22/24 07:52 11/22/24 03:45 3 11/22/24 00:04 3 11/21/24 20:54 2
[2024-11-22] MEDS: HYDROmorphone INJ 0.5 MG/0.5 ML SYR IV PRN (10:07)
[2024-11-22] MEDS: CHOLECALCIFEROL 125 MCG (5,000 UNITS) TAB PO SCH (10:10)
[2024-11-22] MEDS: dexAMETHasone 6 MG in SYRINGE 0 ML IV SCH (10:10)
[2024-11-22] MEDS: SODIUM BICARBONATE 650 MG TAB PO SCH (10:10)
--- NOTE | 2024-11-22 12:11 | Hospitalist Progress Note ---
Date of Service November 22, 2024 Assessment & Plan (1) Chronic kidney disease, stage IV (severe): Plan: Creatinine is stable at 3.2. Monitor intake and output. Serial labs (2) Essential hypertension: Plan: Currently stable. Continue current medical management. (3) Anemia of chronic disease: Plan: Hemoglobin is stable at 9.9. Will follow. Serial labs (4) Type 2 diabetes mellitus: Plan: ADA diet. Sliding scale coverage. Glucose 94 this morningNovember 22 Plan The hospitalist service will follow daily and manage the medical problems. Eventual discharge per primary service Admission and Anticipated Discharge Date Admission Date: November 21, 2024 Subjective Alert and oriented. Primary concern is inadequate pain control postoperatively. Dilaudid dosage has been adjusted. He is already on a bowel regimen. Postoperative day #1 after redo lumbar surgery. Creatinine stable at 3.2. He has known chronic kidney disease stage IV. Hemoglobin somewhat low but stable at 9.9. Glucose 94 and acceptable this morningNovember 22 Review of Systems 2 Review of Systems: Constitutionalno fever or chills ENTno blurred vision, no double vision, no epistaxis, no sore throat Respiratoryno cough, no wheezing, no shortness of breath Cardiacno palpitations, no chest pain, no syncope Gemini nausea, vomiting, diarrhea, melena, hematochezia GUno urinary retention, no urinary incontinence, no dysuria, no hematuria Musculoskeletalpostoperative lumbar discomfort Skinno bruising, no rashes, no pruritus Neurono isolated weakness, no paresthesia Psychno depression, no anxiety Physical Exam 2 Physical Exam: General-alert and oriented x3, no fever, no chills HEENT-head atraumatic and normocephalic, pupils equal and reactive to light, extraocular muscles intact Neck-no lymphadenopathy or thyromegaly, trachea midline Chest-clear to auscultation. No rales, wheezing or rhonchi Cardiac-regular rate and rhythm, normal S1 and S2 Abdomen-normal bowel sounds, no hepatosplenomegaly Extremities-no cyanosis, clubbing, or edema Neuro-cranial nerves II through XII intact, motor and sensory function within normal limits, strength symmetrical, no focal deficits Psych-normal affect, normal mood Results & Data Results & Data Vital Signs (Past 12 Hours) Vital Signs Temp Pulse Pulse Resp BP BP Pulse Ox 11/22/24 11:33 36.5 C 78 15 112/57 L 97 11/22/24 07:52 36.5 C 80 15 115/65 97 11/22/24 03:45 35.7 C L 79 18 120/65 100 O2 Del Method O2 Flow Rate 11/22/24 11:33 Room Air 11/22/24 07:52 Room Air 11/22/24 03:45 Nasal Cannula 3 Laboratory Results 11/22/24 06:54 11/22/24 06:54 PG Care Time/CCT Total # of Minutes Spent Total Time Spent with Patient: Total time spent is greater than 50% in coordination of care (as documented) at patient's floor/unit and/or counseling patient: Coding Level of Care Code 66116 SUB INP/OBS CARE 2/35MIN Diagnoses Chronic kidney disease, stage IV (severe) N18.4 Essential hypertension I10 Anemia of chronic disease D63.8 Type 2 diabetes mellitus E11.9
[2024-11-22] MEDS: HYDROmorphone INJ 1 MG/ML SYRINGE IV PRN (15:24)
[2024-11-22] MEDS: KETOROLAC 0.5% OP SOLN 5 ML BTL OPR SCH (20:18)
[2024-11-22] MEDS: FLUOROMETHOLONE 0.1% OP SCH (20:20)
--- NOTE | 2024-11-23 07:58 | Orthopedic Progress Note ---
Date of Service November 23, 2024 Assessment & Plan (1) Other spondylosis with radiculopathy, lumbar region: Plan: Diet is postoperative day 2 status post hard removal L4-S1, decompression L3-4, instrumented fusion L3-S1. Will continue with physical therapy today. Maintain MARIE drain. Currently awaiting discharge to SNF. Hopefully this can be arranged tomorrow Admission and Anticipated Discharge Date Admission Date: November 21, 2024 Subjective Ed is postoperative day 2 status post hardware removal L4-S1, decompression L3-4 with instrumented fusion L3-S1. Patient has had a bowel movement. Is complaining of some back pain but no leg pain this morning. Was unable to participate in physical therapy yesterday. MARIE drain output left shift is 50 cc Review of Systems Review of Systems: All systems reviewed & are unremarkable except as noted in HPI & below Physical Exam Physical Exam: Patient is laying in bed in no acute distress Alert and oriented x 3 strength is intact bilateral lower extremities dressing is intact with functioning MARIE drain Results & Data Vital Signs (Past 12 Hours) Vital Signs Temp Pulse Resp BP Pulse Ox O2 Del Method 11/22/24 23:25 37.0 C 85 18 116/66 96 Room Air
--- NOTE | 2024-11-23 13:06 | Hospitalist Progress Note ---
Date of Service November 23, 2024 Assessment & Plan (1) Chronic kidney disease, stage IV (severe): Plan: Creatinine is stable . Monitor intake and output. Serial labs (2) Essential hypertension: Plan: Currently stable. Continue current medical management. (3) Anemia of chronic disease: Plan: Hemoglobin is stable. Will follow. Serial labs (4) Type 2 diabetes mellitus: Plan: ADA diet. Sliding scale coverage. [id number] glucose 84 this morning, November 23 Plan The hospitalist service will follow daily and manage the medical problems. Eventual discharge to SNF per primary service Admission and Anticipated Discharge Date Admission Date: November 21, 2024 Subjective The patient looks and feels better today, November 23. He is medically stable. Postoperative day #2 after redo lumbar surgery. [id number]-[id number] glucose is 84 this morning. Awaiting SNF placement at discharge by primary service Review of Systems 2 Review of Systems: Constitutionalno fever or chills ENTno blurred vision, no double vision, no epistaxis, no sore throat Respiratoryno cough, no wheezing, no shortness of breath Cardiacno palpitations, no chest pain, no syncope Gemini nausea, vomiting, diarrhea, melena, hematochezia GUno urinary retention, no urinary incontinence, no dysuria, no hematuria Musculoskeletalpostoperative lumbar discomfort Skinno bruising, no rashes, no pruritus Neurono isolated weakness, no paresthesia Psychno depression, no anxiety Physical Exam 2 Physical Exam: General-alert and oriented x3, no fever, no chills HEENT-head atraumatic and normocephalic, pupils equal and reactive to light, extraocular muscles intact Neck-no lymphadenopathy or thyromegaly, trachea midline Chest-clear to auscultation. No rales, wheezing or rhonchi Cardiac-regular rate and rhythm, normal S1 and S2 Abdomen-normal bowel sounds, no hepatosplenomegaly Extremities-no cyanosis, clubbing, or edema Neuro-cranial nerves II through XII intact, motor and sensory function within normal limits, strength symmetrical, no focal deficits Psych-normal affect, normal mood Results & Data Results & Data Vital Signs (Past 12 Hours) Vital Signs Temp Pulse Resp BP Pulse Ox O2 Del Method 11/23/24 08:02 36.6 C 78 16 126/73 98 Room Air 11/23/24 07:32 Room Air Laboratory Results 11/22/24 06:54 11/22/24 06:54 PG Care Time/CCT Total # of Minutes Spent Total Time Spent with Patient: Total time spent is greater than 50% in coordination of care (as documented) at patient's floor/unit and/or counseling patient: Coding Level of Care Code 27434 SUB INP/OBS CARE 2/35MIN Diagnoses Chronic kidney disease, stage IV (severe) N18.4 Essential hypertension I10 Anemia of chronic disease D63.8 Type 2 diabetes mellitus E11.9
--- NOTE | 2024-11-24 10:31 | Discharge Summary ---
Date of Service November 24, 2024 Admission HPI Per Admitting Provider This is a 74-year-old male presents with chronic persistent back and leg pain after failing course of nonoperative care is here for surgical invention. Principal Diagnosis Lumbar spondylosis with radiculopathy Discharge Data Allergies Allergy/AdvReac Type Severity Reaction Status Date / Time Fish Containing Products Allergy Severe Anaphylaxis Verified 11/21/24 06:22 imipenem Allergy Severe Hives, Verified 11/21/24 06:22 dyspnea (tolerates Cefazolin) iodine Allergy Severe Anaphylaxis Verified 11/21/24 06:22 latex Allergy Severe Dyspnea, Verified 11/21/24 06:22 swelling of throat moxifloxacin Allergy Severe Respiratory Verified 11/21/24 06:22 distress, hives mustard Allergy Severe Anaphylaxis Verified 11/21/24 06:22 peach Allergy Severe Anaphylaxis Verified 11/21/24 06:22 shellfish derived Allergy Severe Anaphylaxis Verified 11/21/24 06:22 Sulfa (Sulfonamide Allergy Severe Dyspnea Verified 11/21/24 06:22 Antibiotics) watermelon Allergy Severe hives, Verified 11/21/24 06:22 throat swelling adhesive tape Allergy Intermediate Rash, Verified 11/21/24 06:22 "Melts my skin" Primaxin SOLR Allergy Severe Dyspnea Uncoded 11/21/24 06:22 Consultations 11/21/24 12:05 Consult Hospitalist Routine Procedures Performed Operation Date: 11/21/24 07:45 Actual Procedures p L3-L4 Decompression and Fusion,(Not Applicable) - Farooq Burgos DO s L4-S1 Hardware Removal(Not Applicable) - Farooq Burgos DO Ordered Studies 11/21/24 [place] lumbar spine 2-3V Routine Hospital Course (1) Adjacent segment disease of lumbar spine with history of fusion procedure: Patient underwent lumbar decompression fusion trial as well as taken orthopedic for postoperative. Postop he progressed slowly but steadily. Pain is cont rolled. Leg symptoms improved. MARIE drain decreasing properly. Subsidy discharged to Total Time Total Time Spent Total Time Spent (In Minutes): 20 minutes Discharge Plan Discharge Items Patient Disposition: Transfer Inpatient Rehab Fac Reason For Visit: Lumbar Radiculopathy, Other Spondylosis with Radic Discharge Diagnosis: Lumbar spondylosis with radiculopathy Activity: As commented below Non-emergency contact: Primary Care Provider Call non-emergency contact if: you have any medication questions Follow-up/Referrals: Bing Ramos DO [Primary Care Provider] - Diet: Regular Addtl Attending Provider Instructions: ACTIVITY RECOMMENDATIONS: SELF CARE INSTRUCTIONS AFTER THORACIC/LUMBAR FUSIONS 1. You may walk to your tolerance. It is good exercise for your legs and back. Expect some back and intermittent leg aches and pains. 2. You may perform "counter-top" level activities (make a sandwich, chante with a project, etc.). 3. No bending or lifting of more than 10 pounds or back twisting of any nature (roll like a log when turning in bed). 4. You may ride in a car for 20-30 minutes at a time. No driving until after your first visit with your doctor. 5. Frequent changes of position and restricting sitting to 30 minutes at a time will help limit the amount of back spasms and stiffness you may experience. 6. You may discontinue the use of ambulatory aids (cane, crutches, etc.) once your strength and confidence allow. 7. 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 Do not take a tub bath, sit in a hot tub or go into a swimming pool until after your first recheck in the office. 8. You may resume previous diet. SPECIAL CARE INSTRUCTIONS: VERY IMPORTANT TO READ AND REVIEW A. Your surgical incision has been closed with a cosmetic suture under the skin that will dissolve in about 6 weeks. In 14 days, you can use a pair of clean scissors and cut the suture that is left outside of the skin at the ends of your incision. 1. The small skin tapes can be removed 7 days after surgery if they have not fallen off by that point. 2. You may keep the wound open to air as much as possible to promote healing after post-op day number 5 unless told otherwise by your doctor. 3. If you think the wound looks like it is becoming infected (redness or worsening drainage) and/or you are experiencing fever, chill or worsening back pain and muscle spasms, contact the office so that we may evaluate you as soon as possible. B. Complications are uncommon, but please contact us if you have any signs or symptoms of: 1. wound infection (fever higher than 102.5 degrees F, redness, separation of wound, drainage, or increasing pain from the incision) 2. blood clots in legs (pain, swelling, redness and warmth in legs) 3. urinary tract infection (fever higher than 102.5 degrees F, burning upon urination or increased frequency of urination) 4. nerve problems (inability to walk on your toes or heels, numbness, loss of bowel or bladder control) 5. any other symptoms that concern you C. Please call the office at if you have any concerns or questions about your operation or recovery. D. No smoking! Smoking drastically decreases the chance of a solid fusion. E. Do not take any anti-inflammatory medications (Indocin, Advil, Motrin, Aspirin, Naprosyn, etc.) as these may inhibit the chance of a solid fusion. Tylenol is okay to take for pain. MANAGING PAIN AFTER SPINAL SURGERY 1. Narcotic medication is intended for short-term use and will be provided for surgical pain. Surgical pain usually lasts for a period of 4-6 weeks. Narcotic medication includes Percocet, Vicodin, Darvocet, Tylenol #3 or Lortab. 2. Longer-term pain is more appropriately treated with non-narcotic medication such as Tylenol ES. 3. Muscle spasm is not appropriately treated with narcotics. Muscle relaxers such as Soma, Flexeril or Skelaxin can be used along with Tylenol ES. 4. Remember that we all live with some "aches and pains". This is not unusual or uncommon after an injury or as we get older. a. Back pain is expected and may include muscle spasms for 4 to 6 weeks after surgery. The pain should gradually improve. If the pain worsens for no apparent reason, please contact the office. b. Intermittent leg pain may also be experienced and should not be concerned about unless it worsens for no apparent reason. If so, please contact the office. 5. We will provide appropriate medication within the normal guidelines of their prescribed use. We will also be very cautious and aware of potential abuse and extended duration of patients' medication needs. a. Pain medications are for your comfort and to assist with sleep and rest so that the tissue can heal. They are not provided in order to return to normal activity and should not be used through the day. To do so or worsening pain at night can result from ongoing tissue damage and development of tolerance to the prescribed medicine. 6. Please allow 2-3 days to process refills. Prescriptions will not be mailed but must be picked up at the office. FOLLOW UP VISIT: Keep your scheduled follow-up appointment. Any questions, please call the office at . Pending Studies at Discharge: No Stand-Alone Forms: My [facility] Skilled Items Patient informed of condition?: Yes DNR: No Discharge Level of Care: Skilled Communicable Disease: No Discharge Prognosis: Improving Lines: None Urinary Catheter: No Medications and DC Order Prescriptions: New hydrocodone-acetaminophen 5-325 mg tablet 1 tab PO Q6H PRN (Reason: pain) Qty: 30 0RF Continued fluticasone propionate [Flonase Allergy Relief] 50 mcg/actuation spray,suspension 2 spray intranasal BID PRN (Reason: allergy symptoms) Qty: 48 0RF Rx Instructions: administer into each nostril tamsulosin 0.4 mg capsule 0.4 mg PO HS Qty: 90 3RF Rx Instructions: TAKE 1 CAPSULE BY MOUTH EVERYDAY AT BEDTIME Procrit 40,000 unit/mL solution See Rx Instructions subcut .COMPLEX Patient Comments: "It seems to me I am getting those every other month, I'll be seeing Dr Perez the before surgery" surgery 11/21/24 Rx Instructions: subcutaneously Qmonth. Hold for Hgb 10.0 or higher; bupropion HCl 100 mg tablet 100 mg PO BID Qty: 180 1RF cyanocobalamin (vitamin B-12) 1,000 mcg/mL solution 1,000 mcg IM MONTHLY Qty: 10 3RF ondansetron HCl 8 mg tablet 8 mg PO Q8H PRN (Reason: nausea and vomiting) Qty: 30 0RF allopurinol 100 mg tablet 100 mg PO HS Qty: 90 4RF Zyrtec 10 mg capsule 10 mg PO QAM PRN (Reason: Allergies) Patient Comments: somedays takes 3 or 4 caps famotidine 20 mg tablet 40 mg PO DAILY PRN (Reason: GERD) cyclobenzaprine 5 mg tablet 5 mg PO HS PRN (Reason: muscle spasm) Qty: 90 1RF epinephrine 0.3 mg/0.3 mL auto-injector 0.3 mg IM .COMPLEX PRN (Reason: bronchodilation) Qty: 2 0RF Rx Instructions: 0.3 mg IM use as directed PRN; until response (DME) BD PrecisionGlide Non-Sterile 25 gauge x 5/8" needle See Dose Instructions .ROUTE .MEDSUPPLY Qty: 100 3RF Rx Instructions: As directed cholecalciferol (vitamin D3) 125 mcg (5,000 unit) capsule 125 mcg PO DAILY calcitriol 0.25 mcg capsule 0.25 mcg PO Q OTHER DAY Rx Instructions: 3 times weekly Ozempic 0.25 mg or 0.5 mg (2 mg/3 mL) pen injector 0.25 mg subcut Q7D Rx Instructions: Wednesday prednisolone acetate 1 % drops,suspension 1 drp OPR DAILY Rx Instructions: 2 drop in R eye 1 drop in left eye ketorolac 0.5 % drops 1 drp OPR BID Rx Instructions: Right calcium acetate 667 mg tablet 667 mg PO BIDM Qty: 60 3RF Rx Instructions: 1 tab with Breakfast and dinner as phosphate binder. multivitamin Tablet 1 tab PO BID sumatriptan succinate 100 mg Tablet 100 mg PO DAILY PRN (Reason: Migraines) sodium bicarbonate 650 mg tablet 650 mg PO QAM amitriptyline 100 mg tablet 100 mg PO HS Rx Instructions: TAKE 1 TABLET BY MOUTH EVERY DAY finasteride [Proscar] 5 mg tablet 5 mg PO HS Rx Instructions: TAKE 1 TABLET BY MOUTH EVERYDAY AT BEDTIME dapagliflozin propanediol [Farxiga] 10 mg tablet 10 mg PO QAM Discharge Orders: Discharge Order (Routine); Ordered 11/24/24 Ordered By: Farooq Burgos Admission Data Admit Date/Time: 11/21/24 09:33 Attending Provider: Farooq Burgos Admit Provider: Farooq Burgos Primary Care Provider: Bing Ramos Other Providers: Wilbert Peña; [facility]
--- NOTE | 2024-11-24 11:57 | Hospitalist Progress Note ---
Date of Service November 24, 2024 Assessment & Plan (1) Chronic kidney disease, stage IV (severe): Plan: Creatinine is stable . Monitor intake and output. Serial labs (2) Essential hypertension: Plan: Currently stable. Continue current medical management. (3) Anemia of chronic disease: Plan: Hemoglobin is stable. Will follow. Serial labs (4) Type 2 diabetes mellitus: Plan: ADA diet. Sliding scale coverage. [id number] glucose 88 this morning, November 24 Plan The hospitalist service will follow daily and manage the medical problems. Eventual discharge to SNF per primary service Admission and Anticipated Discharge Date Admission Date: November 21, 2024 Subjective Medically stable. The patient states his back pain is controlled and he is having regular bowel movements. No new changes at this time Review of Systems 2 Review of Systems: Constitutionalno fever or chills ENTno blurred vision, no double vision, no epistaxis, no sore throat Respiratoryno cough, no wheezing, no shortness of breath Cardiacno palpitations, no chest pain, no syncope Gemini nausea, vomiting, diarrhea, melena, hematochezia GUno urinary retention, no urinary incontinence, no dysuria, no hematuria Musculoskeletalpostoperative lumbar discomfort Skinno bruising, no rashes, no pruritus Neurono isolated weakness, no paresthesia Psychno depression, no anxiety Physical Exam 2 Physical Exam: General-alert and oriented x3, no fever, no chills HEENT-head atraumatic and normocephalic, pupils equal and reactive to light, extraocular muscles intact Neck-no lymphadenopathy or thyromegaly, trachea midline Chest-clear to auscultation. No rales, wheezing or rhonchi Cardiac-regular rate and rhythm, normal S1 and S2 Abdomen-normal bowel sounds, no hepatosplenomegaly Extremities-no cyanosis, clubbing, or edema Neuro-cranial nerves II through XII intact, motor and sensory function within normal limits, strength symmetrical, no focal deficits Psych-normal affect, normal mood Results & Data Results & Data Vital Signs (Past 12 Hours) Vital Signs Temp Pulse Resp BP Pulse Ox O2 Del Method 11/24/24 07:40 36.7 C 101 H 18 113/52 L 96 Room Air 11/24/24 07:11 Room Air Laboratory Results 11/22/24 06:54 11/22/24 06:54 PG Care Time/CCT Total # of Minutes Spent Total Time Spent with Patient: Total time spent is greater than 50% in coordination of care (as documented) at patient's floor/unit and/or counseling patient: Coding Level of Care Code 74581 SUB INP/OBS CARE 2/35MIN Diagnoses Chronic kidney disease, stage IV (severe) N18.4 Essential hypertension I10 Anemia of chronic disease D63.8 Type 2 diabetes mellitus E11.9
[2024-11-25 07:19] LABS: Hematocrit (blood only) 27.5 % (42.0-52.0); Hemoglobin 8.9 g/dl (14.0-18.0); Immature Granulocytes # (auto) 0.03 K/uL (0.01-0.20); Immature Granulocytes % (auto) 0.5 %; Mean Corpuscular Hemoglobin 29.6 pg (25.0-34.0); Mean Corpuscular Volume 91.4 fL (80.0-100.0); Platelet Count 247 K/uL (130-400); RDW Standard Deviation 47.3 fL (36.4-46.3); Red Blood Count 3.01 M/uL (4.70-6.10); White Blood Count 6.44 K/ul (4.8-10.8)
[2024-11-25 07:39] LABS: Anion Gap 8.0 (3-11); Blood Urea Nitrogen 65.0 mg/dl (6-23); Calcium 8.7 mg/dl (8.6-10.3); Carbon Dioxide 24.0 mmol/L (21-32); Chloride 107.0 mmol/L (98-107); Creatinine Clr Calc Pharmacy 21.0 ml/min; Glucose 91.0 mg/dl (70-99(Fasting)); Potassium 3.7 mmol/L (3.5-5.1); Sodium 139.0 mmol/L (136-145)
--- NOTE | 2024-11-25 09:55 | Orthopedic Progress Note ---
Date of Service November 25, 2024 Assessment & Plan (1) Other spondylosis with radiculopathy, lumbar region: Plan: At this time we will continue physical therapy today. Most likely discharge to nursing facility if bed available. Admission and Anticipated Discharge Date Admission Date: November 21, 2024 Subjective Patient's back pain is controlled. His ambulation is improving. Physical Exam Physical Exam: Patient is in the chair at the bedside. Is comfortable. Discussed active testing. Results & Data Vital Signs (Past 12 Hours) Vital Signs Temp Pulse Pulse Resp BP Pulse Ox O2 Del Method 11/25/24 07:39 36.3 C L 79 18 106/63 97 Room Air 11/24/24 23:05 36.5 C 72 18 128/70 98 Room Air
--- NOTE | 2024-11-25 15:33 | Hospitalist Progress Note ---
Date of Service November 25, 2024 Assessment & Plan (1) Chronic kidney disease, stage IV (severe): Plan: Creatinine is stable . Monitor intake and output. Serial labs (2) Essential hypertension: Plan: Currently stable. Continue current medical management. (3) Anemia of chronic disease: Plan: Hemoglobin is stable. Will follow. Serial labs (4) Type 2 diabetes mellitus: Plan: ADA diet. Sliding scale coverage. Koypz-[id number] glucose 91 this morning, November 25 Plan The hospitalist service will follow daily and manage the medical problems. Eventual discharge to SNF per primary service Admission and Anticipated Discharge Date Admission Date: November 21, 2024 Subjective Medically stable. Postoperative day #4. Creatinine stable at 3.2 and hemoglobin 8.9 today, November 25. Placement at [facility] pending. IPR has been denied. Review of Systems 2 Review of Systems: Constitutionalno fever or chills ENTno blurred vision, no double vision, no epistaxis, no sore throat Respiratoryno cough, no wheezing, no shortness of breath Cardiacno palpitations, no chest pain, no syncope Gemini nausea, vomiting, diarrhea, melena, hematochezia GUno urinary retention, no urinary incontinence, no dysuria, no hematuria Musculoskeletalpostoperative lumbar discomfort Skinno bruising, no rashes, no pruritus Neurono isolated weakness, no paresthesia Psychno depression, no anxiety Physical Exam 2 Physical Exam: General-alert and oriented x3, no fever, no chills HEENT-head atraumatic and normocephalic, pupils equal and reactive to light, extraocular muscles intact Neck-no lymphadenopathy or thyromegaly, trachea midline Chest-clear to auscultation. No rales, wheezing or rhonchi Cardiac-regular rate and rhythm, normal S1 and S2 Abdomen-normal bowel sounds, no hepatosplenomegaly Extremities-no cyanosis, clubbing, or edema Neuro-cranial nerves II through XII intact, motor and sensory function within normal limits, strength symmetrical, no focal deficits Psych-normal affect, normal mood Results & Data Results & Data Vital Signs (Past 12 Hours) Vital Signs Temp Pulse Resp BP Pulse Ox O2 Del Method 11/25/24 14:09 35.9 C L 76 18 137/63 98 Room Air 11/25/24 12:15 Room Air 11/25/24 07:39 36.3 C L 79 18 106/63 97 Room Air Laboratory Results 11/25/24 06:41 11/25/24 06:41 PG Care Time/CCT Total # of Minutes Spent Total Time Spent with Patient: Total time spent is greater than 50% in coordination of care (as documented) at patient's floor/unit and/or counseling patient: Coding Level of Care Code 28700 SUB INP/OBS CARE 2/35MIN Diagnoses Chronic kidney disease, stage IV (severe) N18.4 Essential hypertension I10 Anemia of chronic disease D63.8 Type 2 diabetes mellitus E11.9
--- NOTE | 2024-11-26 08:39 | Orthopedic Progress Note ---
Date of Service November 26, 2024 Assessment & Plan (1) Other spondylosis with radiculopathy, lumbar region: Plan: Patient is stable at this point. We are awaiting SNF placement. Will continue with GI DVT prophylaxis and pain control measures as well as a bowel regimen. We will be able to discharge him to custodial once a facility is available Admission and Anticipated Discharge Date Admission Date: November 21, 2024 Subjective Patient was seen bedside in room 386 bed 1. He is seated on the side of the bed eating his breakfast. He states his pain is well-controlled. He had a bowel movement yesterday but not today. He is tolerating p.o. well. He denies any other numbness, tingling, or paresthesias. Physical Exam Physical Exam: On exam he is alert and oriented. His abdomen soft and nontender his calves are supple and nontender his dressings clean dry and intact. His respirations are unlabored. He answers questions appropriately. Results & Data Vital Signs (Past 12 Hours) Vital Signs Temp Pulse Pulse Resp BP Pulse Ox O2 Del Method 11/26/24 07:14 36.3 C L 94 H 18 103/61 97 Room Air 11/25/24 22:44 36.6 C 88 18 120/68 97 Room Air
--- NOTE | 2024-11-26 10:59 | Hospitalist Progress Note ---
Date of Service November 26, 2024 Assessment & Plan (1) Chronic kidney disease, stage IV (severe): Plan: Creatinine is stable . Monitor intake and output. Serial labs (2) Essential hypertension: Plan: Currently stable. Continue current medical management. (3) Anemia of chronic disease: Plan: Hemoglobin is stable. Will follow. Serial labs (4) Type 2 diabetes mellitus: Plan: ADA diet. Sliding scale coverage. [id number] glucose 99 this morning, November 26 Plan The hospitalist service will follow daily and manage the medical problems. Eventual discharge to SNF per primary service. Hopefully tomorrow, November 27 Admission and Anticipated Discharge Date Admission Date: November 21, 2024 Subjective Alert and oriented. No new problems. Medically stable. [facility] tomorrowNovember 27 by primary service Review of Systems 2 Review of Systems: Constitutionalno fever or chills ENTno blurred vision, no double vision, no epistaxis, no sore throat Respiratoryno cough, no wheezing, no shortness of breath Cardiacno palpitations, no chest pain, no syncope Gemini nausea, vomiting, diarrhea, melena, hematochezia GUno urinary retention, no urinary incontinence, no dysuria, no hematuria Musculoskeletalpostoperative lumbar discomfort Skinno bruising, no rashes, no pruritus Neurono isolated weakness, no paresthesia Psychno depression, no anxiety Physical Exam 2 Physical Exam: General-alert and oriented x3, no fever, no chills HEENT-head atraumatic and normocephalic, pupils equal and reactive to light, extraocular muscles intact Neck-no lymphadenopathy or thyromegaly, trachea midline Chest-clear to auscultation. No rales, wheezing or rhonchi Cardiac-regular rate and rhythm, normal S1 and S2 Abdomen-normal bowel sounds, no hepatosplenomegaly Extremities-no cyanosis, clubbing, or edema Neuro-cranial nerves II through XII intact, motor and sensory function within normal limits, strength symmetrical, no focal deficits Psych-normal affect, normal mood Results & Data Results & Data Vital Signs (Past 12 Hours) Vital Signs Temp Pulse Resp BP Pulse Ox O2 Del Method 11/26/24 07:14 36.3 C L 94 H 18 103/61 97 Room Air Laboratory Results 11/25/24 06:41 11/25/24 06:41 PG Care Time/CCT Total # of Minutes Spent Total Time Spent with Patient: Total time spent is greater than 50% in coordination of care (as documented) at patient's floor/unit and/or counseling patient: Coding Level of Care Code 01020 SUB INP/OBS CARE 2/35MIN Diagnoses Chronic kidney disease, stage IV (severe) N18.4 Essential hypertension I10 Anemia of chronic disease D63.8 Type 2 diabetes mellitus E11.9
--- NOTE | 2024-11-27 10:58 | Hospitalist Progress Note ---
Date of Service November 27, 2024 Assessment & Plan (1) Chronic kidney disease, stage IV (severe): Plan: Creatinine is stable . Monitor intake and output. Serial labs (2) Essential hypertension: Plan: Currently stable. Continue current medical management. (3) Anemia of chronic disease: Plan: Hemoglobin is stable. Will follow. Serial labs (4) Type 2 diabetes mellitus: Plan: ADA diet. Sliding scale coverage. Plan discharge to SNF by Ortho Admission and Anticipated Discharge Date Admission Date: November 21, 2024 Subjective patient seen and examined, sitting up in the chair, tolerating diet, no new complanits Review of Systems Review of Systems: All systems reviewed are negative, apart from the ones contained in the history. Physical Exam Physical Exam: General-alert and oriented x3, no fever, no chills HEENT-head atraumatic and normocephalic, pupils equal and reactive to light, extraocular muscles intact Neck-no lymphadenopathy or thyromegaly, trachea midline Chest-clear to auscultation. No rales, wheezing or rhonchi Cardiac-regular rate and rhythm, normal S1 and S2 Abdomen-normal bowel sounds, no hepatosplenomegaly Extremities-no cyanosis, clubbing, or edema Neuro-cranial nerves II through XII intact, motor and sensory function within normal limits, strength symmetrical, no focal deficits Psych-normal affect, normal mood Results & Data Results & Data Vital Signs (Past 12 Hours) Vital Signs Temp Pulse Pulse Resp BP BP Pulse Ox 11/27/24 07:28 98.4 F 101 H 16 124/66 97 11/26/24 23:01 97.9 F 80 18 130/67 96 O2 Del Method 11/27/24 07:28 Room Air 11/26/24 23:01 Room Air PG Care Time/CCT Total # of Minutes Spent Total Time Spent with Patient: Total time spent is greater than 50% in coordination of care (as documented) at patient's floor/unit and/or counseling patient: Coding Level of Care Code 89872 SUB INP/OBS CARE 2/35MIN Diagnoses Chronic kidney disease, stage IV (severe) N18.4 Essential hypertension I10 Anemia of chronic disease D63.8 Type 2 diabetes mellitus E11.9 Time Spent (min) 35
--- NOTE | 2024-11-27 11:22 | Orthopedic Progress Note ---
Date of Service November 27, 2024 Assessment & Plan (1) Other spondylosis with radiculopathy, lumbar region: Plan: At this time he will be discharged to nursing facility today. Discharge orders instructions found the chart for further review. Will follow-up as scheduled. Admission and Anticipated Discharge Date Admission Date: November 21, 2024 Subjective Patient's back pain is controlled leg symptoms improved. He is tolerating physical therapy. Physical Exam Physical Exam: Patient is in the chair at the bedside. Is comfortable. Distracted testing. Results & Data Vital Signs (Past 12 Hours) Vital Signs Temp Pulse Resp BP Pulse Ox O2 Del Method 11/27/24 07:28 36.9 C 101 H 16 124/66 97 Room Air
[2024-11-27 11:55] VITALS: BP 112/70; PULSE 97; RESP 18; TEMP 98.2; O2SAT 96
== END 2024-11-27 12:34 | DRG 402 ==
LOC: ASU 06:03 → 3N 09:33